=== PATIENT | male | born 1940 | race Caucasian/White ===

== ENCOUNTER 2017-09-09 18:24 | Inpatient (IN) | payer MEDICARE, BC ==
[~2017-09-09] VITALS: Ht 182.9 cm; Wt 86.0 kg
[~2017-09-09 18:24] MED LIST: AMBEREN; APAP500 PO; ASPIRIN EC325 M1 PO; CALCIUM 500 WI1 EAC4 PO; CALCIUM OYSTER500 MG; CARDIZEM CD120 MG PO; CARDIZEM CD180 MG; CARDIZEM CD240 MG PO; CRANBERRY400 MG PO; FISH OIL 1,0001 EAC5 PO; FLAX OIL1000 MG PO; GARLIC OIL1 EAC1; GARLIC OIL1 EACH PO; GLUCOPHAGE1000 MG PO; GLUCOPHAGE500 MG PO; IBUPROFEN 800800 M1 PO; LANOXIN 0.250.25 M1 PO; LEVAQUIN 500 M500 M4 PO; MULTI VITAMIN1 EACH PO; NAPROSYN250 MG PO; NAPROSYN500 MG PO; NORCO 7.5-3251 EACH PO; OXYCODON-ACETA1 EACH PO; PALMETTO; SAW PALMETTO C1 EACH PO; TAMSULOSIN HCL0.4 MG PO
[2017-09-09 18:29] VITALS: BP 118/69
--- NOTE | 2017-09-09 18:45 | NUR ---
WENT TO GET PT, REPORTS HE IS IN BATHROOM AND WILL CALL WHEN HE IS OUT.
[2017-09-09 19:48] LABS: HEMATOCRIT 36.9 % (42.0-52.0); HEMOGLOBIN 11.9 gm/dL (14.0-18.0); MCH 29.4 pg (26.0-34.0); MCHC 32.4 g/dL (28.0-37.0); MCV 90.7 fL (80.0-100.0); MPV 9.3 fl. (7.2-11.1); NUCLEATED RBCS 0 /100WBC; PLATELET COUNT* 511 thou/uL (150-400); RBC 4.06 mil/uL (4.50-6.00); RDW-CV 13.9 % (10.5-14.5); WBC 19.3 thou/uL (4.0-11.0)
[2017-09-09 19:51] LABS: ANION GAP 12 mmol/L (7-16); BUN 108 mg/dL (7-18); CALCIUM 8.2 mg/dL (8.5-10.1); CHLORIDE 93 mmol/L (98-107); CO2 21 mmol/L (21-32); CREATININE 2.6 mg/dL (0.6-1.3); GLUCOSE 457 mg/dL (70-99); POTASSIUM 5.3 mmol/L (3.5-5.1); SODIUM 126 mmol/L (136-145)
[2017-09-09 19:58] LABS: ALBUMIN 2.9 g/dL (3.4-5.0); ALKALINE PHOSPHATASE 141 U/L (46-116); SGOT 19 U/L (15-37); SGPT 48 U/L (30-65); TOTAL BILIRUBIN 0.5 mg/dL (<0.1-1.0); TOTAL PROTEIN 7.2 g/dL (6.4-8.2); TROPONIN-I LEVEL <0.06 ng/mL (<0.06)
[2017-09-09 20:16] LABS: BE -8.1 mmol/L (-2 to +3); HCO3 14.2 mmol/L (22.0-26.0); PCO2 22.3 mmHg (35.0-45.0); PO2 62.2 mmHg (75.0-100.0); pH 7.423 (7.340-7.450)
[2017-09-09 20:25] LABS: ABSOLUTE LYMPHOCYTES 0.4 thou/uL (0.8-5.3); ABSOLUTE MONOCYTES 1.5 thou/uL (0.0-1.2); ABSOLUTE NEUTROPHILS 17.4 thou/uL (1.6-8.1)
[2017-09-09 20:26] LABS: CLUMPED PLTS OCCASIONAL; PLATELET ESTIMATE INCREASED
[2017-09-09 20:28] LABS: MACROCYTES Occasional; MICROCYTES Occasional; POLYCHROMASIA Occasional
[2017-09-09 21:38] LABS: CALCIUM 8.2 mg/dL (8.5-10.1); CREATININE 2.6 mg/dL (0.6-1.3); POTASSIUM 5.2 mmol/L (3.5-5.1)
[2017-09-09 21:57] LABS: URINE BILIRUBIN NEGATIVE (Negative); URINE BLOOD NEGATIVE (Negative); URINE CLARITY CLEAR; URINE COLOR YELLOW; URINE GLUCOSE-RANDOM 3+ (Negative); URINE KETONES NEGATIVE (Negative); URINE LEUKOCYTES-REFLEX NEGATIVE (Negative); URINE NITRITE-REFLEX NEGATIVE (Negative); URINE PROTEIN NEGATIVE (Negative); URINE UROBILINOGEN 0.2 E.U./dl (0.2-1.0)
[2017-09-09 22:52] VITALS: BP 115/65
[2017-09-09 23:04] VITALS: BP 131/70
[2017-09-09] MEDS ORDERED: ULTRAM 50MG TAB50 MG PO (23:30)
--- NOTE | 2017-09-10 02:11 | NUR ---
ASSUMED CARE OF PT AT 2250. PT IS ALERT AND ORIENTED. VSS. PERRLA. NO COMPLAINTS OF PAIN. PT IS TRIGGERING OUR SEPSIS PROTOCAL. DR PARKER IS AWARE OF SEPSIS. PT WAS BOLUSED WITH 1 LITER OF NS WIDE OPEN AND 1 LITER AT 250 ML/HR, AND THEN 125 ML/HR CONTINUOUS. PT ALSO RECIEVED LEVAQUIN. PT IS IN SINUS RYTHM ON THE TELEMETRY. PT IS RESTING COMFORTABLY IN BED. RESPIRATIONS ARE EVEN AND NONLABORED. WILL CONTINUE TO MONITOR PT.
[2017-09-10 04:11] VITALS: BP 123/75
[2017-09-10 07:30] VITALS: BP 126/78
[2017-09-10 09:17] LABS: URINE CHLORIDE-RANDOM* 40 mmol/L; URINE POTASSIUM-RANDOM 47.6 mmol/L
[2017-09-10 11:30] VITALS: BP 128/80
--- NOTE | 2017-09-10 11:54 | NUR ---
ASSUMED PT CARE 0730. PT A/O X'S 4. 93% ON 4L NC. PT DENIES USING OXYGEN AT HOME. PT REPORTS POOR APPETITE LAST FEW DAYS. PT ATE ABOUT 35-40% BREAKFAST. SPOUSE REPORTS THIS IS "MORE THAN WHAT HE HAS EATEN COLLECTIVELY ALL WEEK". VSS. AFEBRILE. TRACING SR. PT UP WITH 1 TO [facility]. PT WEAK. BILATERAL LOWER EXTREMITY EDEMA. PT AND SPOUSE REPORT AT TIMES PT HAS EDEMA IN LEFT LEG. PT C/O OF LOWER BACK PAIN. PRN TRAMADOL ADMININSTERED PER NOV. AT BEDSIDE.
[2017-09-10 12:59] LABS: CALCIUM 7.5 mg/dL (8.5-10.1); CREATININE 2.3 mg/dL (0.6-1.3); POTASSIUM 4.9 mmol/L (3.5-5.1)
[2017-09-10 13:03] LABS: ALBUMIN 2.7 g/dL (3.4-5.0); TOTAL BILIRUBIN 0.4 mg/dL (<0.1-1.0); TOTAL PROTEIN 6.7 g/dL (6.4-8.2)
[2017-09-10 15:30] VITALS: BP 125/87
--- NOTE | 2017-09-10 15:39 | NUR ---
Pt in the bathroom when CM went to assess, will f/u later
--- NOTE | 2017-09-10 17:00 | EKG ---
[place] [address] ELECTROCARDIOGRAM REPORT Name: SHALINIYAOFRANKLYN MONTALVO Room: [address] ADM IN M.R.#: [id number] Admission: 09/09/17 Attend Phys: Caren Girard MD Discharge: Date of : 42 Report #: [id number] THIS REPORT FOR: //name// [facility] ED Test Date: 2017-09-09 Test Time: 19:50:48 Pat Name: YAO LOYA Department: Room: [facility] Gender: M Liquid Loader: WES [place] : 1940 Requested By: Susy Anna Order Number: [id number] MD: Gordon Tobar Measurements Intervals [place] Rate: 83 P: [place]: QRS: 76 QRSD: 112 T: -62 QT: 370 QTc: 435 Interpretive Statements Accelerated junctional rhythm Borderline intraventricular conduction delay Low voltage, precordial leads Nonspecific T abnormalities, inferior leads Compared to ECG 09/11/2013 12:34:53 Accelerated junctional rhythm now present Low QRS voltage now present T-wave abnormality now present Sinus rhythm no longer present First degree AV block no longer present Electronically Signed On 09-10-2017 17:00:46 [employer] by Gordon Tobar [email or web address] <ELECTRONICALLY SIGNED> By: Gordon Tobar MD, FACC 09/10/17 1700 1950 1950 Gordon Tobar MD, FACC /EPI
--- NOTE | 2017-09-10 18:00 | NUR ---
PT VOIDS ABOUT 1 X EVERY 2 HOURS. PRN TRMADOL ADMININSTERED FOR CHRONIC BACK PAIN. BLADDER SCANNER PLACED IN PT'S ROOM TO OBTAIN PVR PER RENAL AND NEPHROLOGY. PT WENT DOWN FOR RENAL US. NO RESULTS AT THIS TIME. BLODD GLUCOSE LEVELS IN 300'S. PT MOVED UP TO MODERATE SLIDING SCALE PER PROTOCOL.
[2017-09-10 20:00] VITALS: BP 110/70
[2017-09-10 23:46] VITALS: BP 102/66
[2017-09-11 03:52] VITALS: BP 105/61
[2017-09-11 04:34] LABS: HEMATOCRIT 37.4 % (42.0-52.0); HEMOGLOBIN 12.2 gm/dL (14.0-18.0); MCH 29.3 pg (26.0-34.0); MCHC 32.6 g/dL (28.0-37.0); MCV 90.1 fL (80.0-100.0); MPV 8.5 fl. (7.2-11.1); RBC 4.15 mil/uL (4.50-6.00); RDW-CV 13.9 % (10.5-14.5); WBC 22.6 thou/uL (4.0-11.0)
[2017-09-11 04:45] LABS: CALCIUM 8.1 mg/dL (8.5-10.1); CREATININE 2.6 mg/dL (0.6-1.3); MAGNESIUM 2.7 mg/dL (1.8-2.4); POTASSIUM 5.4 mmol/L (3.5-5.1)
--- NOTE | 2017-09-11 04:46 | NUR ---
ASSUMED PT CARE AT 1930, PT IS A&OX4, PT IS TRACING NSR UNTILL MIDNIHGT THIS SHIFT, PT CVONVERTED TO AFIB, EKG COMPLETED FOR CONFIRM RHYTHM CHANGE. EKG READS AFIB. ON 3L NC SATTING MID TO LOW 90'S. PT HAS IVF INFUSING PER NOV. PER BEDSIDE REPORTING DAY RN GOT VERBAL ORDER FROM DR. ROSAS TO PLACE BRAVO IF NEEDED FOR RETENTION DUE TO PROSTATE ENLARGEMENT. PT HAS HAD SMALL AMOUNTS OF POST VOID RESIDUAL UNTILL 0400, PT WAS UNABLE TO VOID, BLADDER SCAN REVEALED 520MLS IN BLADDER. THIS RN WILL PLACE A BRAVO TO DD. PT C/O BACK PAIN ONCE THIS SHIFT, PRN PAIN MEDICATIONS GIVEN PER NOV. BED IN LOW POSITION, CALL LIGHT IN REACH, BED ALARM ON. YELLOW ARM BAND AND SOCKS IN PLACE. HOURLY ROUNDING COMPLETED FOR PT SAFETY.
[2017-09-11 08:00] VITALS: BP 106/70
--- NOTE | 2017-09-11 11:11 | NUR ---
VSS, ASSUMED CARE IN AM, ASSESSMENT PERFORMED AND CHARTED, FALL PRECAUTIONS IN PLACE AND CALL LIGHT IN REACH, PT IS TRACING SR AFIB ON THE MONITOR AND IS ON 3L NC AND HAS BRAVO IN PLACE AND IS DRAINING BUY IS RED TINGED BUT DRAINING, PT GOAL IS TO IMPROVE BREATHING AND SIT UP IN CHAIR,
--- NOTE | 2017-09-11 15:47 | NUR ---
Pt is A&O. Resides at home with his . Was independent with ADLs. Supportive family that is involved in POC. Pt has a wc, walker and cane that he can use at home if necessary. Nephro following. CM following for dc needs.
[2017-09-11 16:00] VITALS: BP 120/71
--- NOTE | 2017-09-11 17:55 | EKG ---
[place] [address] ELECTROCARDIOGRAM REPORT Name: BHAKTI LOYAH SELVIN Room: [address] ADM IN M.R.#: [id number] Admission: 09/09/17 Attend Phys: Caren Girard MD Discharge: Date of : 42 Report #: [id number] THIS REPORT FOR: //name// [facility] Test Date: 2017-09-11 Test Time: 00:29:48 Pat Name: YAO LOYA Department: Room: [address] Gender: M Twisting Department End Finder: [facility] : 1940 Requested By: Mohsen Mejia Order Number: [id number] Natasha MD: Gordon Tobar Measurements Intervals [place] Rate: 84 P: [place]: QRS: 91 QRSD: 108 T: -32 QT: 382 QTc: 452 Interpretive Statements Atrial fibrillation Right axis deviation Low voltage, extremity and precordial leads Nonspecific T wave flattening Compared to ECG 09/09/2017 19:50:48 Right-axis deviation now present Accelerated junctional rhythm no longer present T-wave abnormality no longer present Electronically Signed On 09-11-2017 17:55:43 [employer] by Gordon Tobar [email or web address] <ELECTRONICALLY SIGNED> By: Gordon Tobar MD, FACC 09/11/17 1755 0029 0029 Gordon Tobar MD, FACC /EPI
--- NOTE | 2017-09-11 18:55 | NUR ---
VSS, PT IS PROGRESSING TOWARDS GOAL, PT IS ON 3L NC AND UP WITH ONE TO BSC, BRAVO IN PLACE AND IS DRAINIG TEA COLOR, PT IS CONFUSED AND IS TRACING SB ON THE MONITOR, HOURLY ROUNDS COMPLETED AND WILL FOLLOW WITH PLAN OF CARE.
[2017-09-11 20:00] VITALS: BP 117/70
[2017-09-11 23:31] VITALS: BP 95/67
[2017-09-12 04:43] LABS: HEMATOCRIT 39.8 % (42.0-52.0); HEMOGLOBIN 12.7 gm/dL (14.0-18.0); MCH 28.9 pg (26.0-34.0); MCHC 31.8 g/dL (28.0-37.0); MCV 90.8 fL (80.0-100.0); MPV 8.3 fl. (7.2-11.1); PLATELET COUNT* 565 thou/uL (150-400); RBC 4.38 mil/uL (4.50-6.00); RDW-CV 14.3 % (10.5-14.5); WBC 25.9 thou/uL (4.0-11.0)
[2017-09-12 05:06] LABS: CREATININE 3.1 mg/dL (0.6-1.3); MAGNESIUM 2.8 mg/dL (1.8-2.4); POTASSIUM 5.7 mmol/L (3.5-5.1)
--- NOTE | 2017-09-12 05:50 | NUR ---
A&O X 3-4, PT IMPULSIVE. PT ON SEPSIS PROTOCOL PT HAS BRAVO, DARK [place] TEA COLOR. BRAVO WAS FLUSHED WITH 10 ML NS. EDEMA IN ARMS AND LEGS. PT HAS LARGE BM EARLY IN THE MORNING. PT X1 ASSIST, REQUIRES EXTRA TIME. 3L O2 SAT 97. SHALLOW BREATHING. PT IS MED SURGE. FALL PRECATUIONS IN PLACE.HOURLY ROUNDING FOR SAFETY.
[2017-09-12 08:00] VITALS: BP 110/77
[2017-09-12 10:31] LABS: ABSOLUTE LYMPHOCYTES 1.8 thou/uL (0.8-5.3); ABSOLUTE MONOCYTES 2.1 thou/uL (0.0-1.2); ANISOCYTOSIS 2+; ATYPICAL LYMPHS 1 %; BURR CELLS 1+; METAMYELOCYTES 2 %; PLATELET ESTIMATE INCREASED
[2017-09-12 11:50] LABS: URINE BILIRUBIN NEGATIVE (Negative); URINE BLOOD 3+ (Negative); URINE CLARITY SL HAZY; URINE COLOR YELLOW; URINE GLUCOSE-RANDOM NEGATIVE (Negative); URINE KETONES NEGATIVE (Negative); URINE LEUKOCYTES-REFLEX TRACE (Negative); URINE NITRITE-REFLEX NEGATIVE (Negative); URINE PROTEIN NEGATIVE (Negative); URINE UROBILINOGEN 0.2 E.U./dl (0.2-1.0)
[2017-09-12 11:56] LABS: BACTERIA-REFLEX 1-9 Few /HPF (None Seen); CASTS None Seen /LPF (None Seen); CRYSTALS None Seen /LPF (None Seen); MUCUS 0-3 Light strn/LPF (None Seen); SQUAMOUS 0-3 Few /LPF (0-3); URINE RBC 3-10 Few /HPF (0-2); URINE WBC-REFLEX 6-15 Few /HPF (0-5)
--- NOTE | 2017-09-12 13:36 | 2DMMODE ---
[place] [address] 2 D/M-MODE ECHOCARDIOGRAM Name: SHALINIYAO WAYNE Room: [address] IN [facility]#: [id number] Admission: 09/09/17 Attend Phys: Caren Girard, Discharge: Date of : 42 Date of Service: 09/12/17 1336 Report #: [id number] THIS REPORT FOR: //name// APPROVED REPORT Study performed: 09/12/2017 10:41:47 EXAM: Comprehensive 2D, Doppler, and color-flow Echocardiogram Patient Location: In-Patient Room #: 202 Status: routine BSA: 2.24 HR: 83 bpm BP: 110/77 mmHg Rhythm: NSR Other Information Study Quality: Good Indications Abnormal ECG Sepsis Pericardial Effusion 2D Dimensions LVEF(%): 68.49 (>50%) IVSd: 15.14 (7-11mm) LVOT Diam: 26.71 (18-24mm) LVDd: 34.53 mm PWd: 13.57 (7-11mm) Ascending Ao: 39.12 (22-36mm) LVDs: 21.63 (25-40mm) Aortic Root: 32.31 mm Lau's LVEF: 68.49 % Volumes Left Atrial Volume (Systole) LA ESV Index: 20.10 mL/m2 Aortic Valve AoV Peak Sukhjinder.: 1.61 m/s AO Peak Gr.: 10.33 mmHg LVOT Max P.62 mmHg AO Mean Gr.: 6.32 mmHg LVOT Mean P.21 mmHg LVOT Max V: 0.81 m/s AO V2 VTI: 21.90 cm LVOT Mean V: 0.50 m/s JANEEN (VTI): 2.63 cm2 LVOT V1 VTI: 10.28 [place] [address] 2 D/M-MODE ECHOCARDIOGRAM Name: YAO LOYA Room: [address] IN ..#: [id number] Admission: 09/09/17 Attend Phys: Caren Girard, Discharge: Date of : 42 Date of Service: 09/12/17 1336 Report #: [id number] Mitral Valve E/A Ratio: 0.83 MV Decel. Time: 479.57 ms MV E Max Sukhjinder.: 0.54 m/s MV PHT: 139.08 ms MVA (PHT): 1.58 cm2 Pulmonary Valve PV Peak Sukhjinder.: 1.05 m/s PV Peak Gr.: 4.42 mmHg Tricuspid Valve TR Peak Gr.: 21.12 mmHg RVSP: 26.00 mmHg Left Ventricle The left ventricle is normal size. There is normal LV segmental wall motion. There is normal left ventricular wall thickness. Left ventricular systolic function is normal. The left ventricular ejection fraction is within the normal range. LVEF is 60-65%. Right Ventricle The right ventricle is normal size. The right ventricular systolic function is normal. Atria The left atrium size is normal. The right atrium size is normal. Aortic Valve Mild aortic valve sclerosis. No aortic regurgitation is present. There is no aortic valvular stenosis. Mitral Valve The mitral valve is normal in structure. There is no mitral valve regurgitation noted. No evidence of mitral valve stenosis. Tricuspid Valve The tricuspid valve is normal in structure. Trace tricuspid regurgitation. The RVSP is ___26___ mmHg. Pulmonic Valve The pulmonary valve is normal in structure. There is no pulmonic valvular regurgitation. Great Vessels The aortic root is normal in size. IVC is normal in size and collapses with >50% [place] [address] 2 D/M-MODE ECHOCARDIOGRAM Name: YAO LOYA Room: [address] IN [facility]#: [id number] Admission: 09/09/17 Attend Phys: Caren Girard, Discharge: Date of : 42 Date of Service: 09/12/17 1336 Report #: [id number] Pericardium Moderate pericardial effusion. Nonloculated with thickening of the visceral pericardium .No evidence for tamponade. <Conclusion> The left ventricle is normal size. There is normal left ventricular wall thickness. Left ventricular systolic function is normal. The left ventricular ejection fraction is within the normal range. LVEF is 60-65%. The right ventricle is normal size. The right ventricular systolic function is normal. The left atrium size is normal. The right atrium size is normal. Mild aortic valve sclerosis. No aortic regurgitation is present. There is no aortic valvular stenosis. The mitral valve is normal in structure. There is no mitral valve regurgitation noted. The tricuspid valve is normal in structure. Trace tricuspid regurgitation. The RVSP is ___26___ mmHg. IVC is normal in size and collapses with >50% inspiratio There is normal LV segmental wall motion. Moderate pericardial effusion. Nonloculated with thickening of the visceral pericardium .No evidence for tamponade. <ELECTRONICALLY SIGNED> By: Ricardo Momin MD, FACC 09/12/17 1336 1336 1336 Ricardo Momin MD, FACC /INF
[2017-09-12 16:10] VITALS: BP 133/74
--- NOTE | 2017-09-12 18:48 | NUR ---
VSS, ASSUMED CARE IN THE AM, ASSESSMENT PERFORMED AND CHARTED, FALL PRECAUTIONS IN PLACE AND CALL LIGHT IN REACH, PT IS ON 3L NC AND IS A&O2-3 BUT VERY SLEEPY AND WEAK, PT GOAL IS TO SIT UP IN CHAIR FOR LUNCH. OT IS MED-SURG AND STATES PAIN IN HIS BACK, AT THIS TIME, PT MET GOAL WAS UP IN CHAIR FOR LUNCH, AND IS NOW TELE STATUS, WILL FOLLOW WITH PLAN OF CARE.
--- NOTE | 2017-09-12 19:52 | S ---
[address] [address] SURGICAL PATH RPT PROCEDURE Name: YAO LOYA Room: [address] ADM IN M.R.#: [id number] Admission: 09/09/17 Date of : 42 Discharge: Report #: [id number] Path Case #: [id number] PATHOLOGY REPORT COLLECTION DATE: 09/12/2017 RECEIVED DATE: 09/12/2017 SUBMITTING PHYS: Dr. Rosales Barrientos OTHER PHYS: Dr. Caren Almaraz SPECIMEN(S) RECEIVED: A.Peripheral smear * * * * * * * * * * * * FINAL DIAGNOSIS: Peripheral blood smear: - Mild normocytic anemia, mild to moderate leukocytosis (neutrophilia and mature monocytosis) with mild left shift and mild thrombocytosis (see comment). COMMENT: Overall the peripheral blood has mild normocytic anemia, mild to moderate leukocytosis (neutrophilia and mature monocytosis) with mild left shift, and mild thrombocytosis. The etiology of the findings is unclear based entirely on slide review. Reactive changes are noted. Rare granulocytic abnormalities are also seen. Potential causes of normocytic anemia include anemia of chronic disease, treated and/or compensated vitamin and mineral deficiencies, acute blood loss, dilutional and primary bone marrow disorders. The leukocytosis with left shifted neutrophilia and absolute mature monocytosis is likely a reactive condition; however, a primary bone marrow disorder cannot be entirely excluded. Potential causes of thrombocytosis include reactive and inflammatory conditions, iron deficiency and primary bone marrow disorders. Correlation with clinical history and additional laboratory data is recommended. (CLW:db; 09/12/2017) PATHOLOGIST: Ramila Mart M.D. REPORT ELECTRONICALLY SIGNED BY: Ramila Mart M.D. DATE/TIME: 09/12/2017 19:51 * * * * * * * * * * * * MICROSCOPIC DESCRIPTION: CBC Data (09/12/17): WBC 25,900 /uL, RBC 4.38, hemoglobin 12.7 g/dL, hematocrit 39.8%, MCV 90.8 fL, MCH 28.9 pg, MCHC 31.8 g/dL, RDW 14.3%. Platelet count 565,000 /uL. Manual white blood cell differential: segs 83%, lymphs 6%, monos 8%, metas 2% and atypical lymphs 1%. [place] [address] SURGICAL PATH RPT PROCEDURE Name: YAO LOYA Room: [address] IN [facility]#: [id number] Admission: 09/09/17 Date of : 42 Discharge: Report #: [id number] Path Case #: [id number] Peripheral Blood Smear: Cytomorphological examination of the Humphrey's stained peripheral blood smear confirms the provided data. Red blood cells show mild normocytic anemia and are without significant anisopoikilocytosis. White blood cells are mild to moderately increased in number. They are predominantly segmented neutrophils with reactive changes and show focal hypogranularity. There is a mild left shift with a rare metamyelocyte noted on scanning. No blasts or Qian rods are seen. Lymphocytes are predominantly small, round and mature appearing with condensed chromatin and scant cytoplasm with admixed large granular lymphocytes and occasional reactive appearing lymphocytes. On scanning, no markedly atypical lymphoid cells are seen. Monocytes are mature. Platelets are mildly increased in number and mainly normal in morphology with rare larger platelets noted. A rare nucleated red blood cell is seen. GROSS PATHOLOGY: Received are two Humphrey stained peripheral blood smears labeled "Green, K and [id number]." CLINICAL HISTORY: 77 year old man with leukocytosis and thrombocytosis. Morphologic review of the peripheral blood smear is requested by the patient's physician. INITIAL CPT CODE(S): A; [place] Professional services performed by [facility] at [address] [address] Technical services performed by [facility] at [address] [place] [address], [address], [place] [address]. [facility] [address] [place] [address] PHONE: [phone] DIRECTOR: Miller Wallis M.D. * * * END OF REPORT * * *
[2017-09-12 20:00] VITALS: BP 111/72
[2017-09-13] VITALS: BP 123/77
[2017-09-13 04:26] VITALS: BP 120/74
[2017-09-13 05:08] LABS: ABSOLUTE MONOCYTES 2.9 thou/uL (0.0-1.2); BASOPHILS 0.2 %; HEMATOCRIT 39.3 % (42.0-52.0); HEMOGLOBIN 12.6 gm/dL (14.0-18.0); LYMPHOCYTES 3.8 %; MCH 29.2 pg (26.0-34.0); MCHC 32.2 g/dL (28.0-37.0); MCV 90.6 fL (80.0-100.0); MONOCYTES 11.3 %; MPV 8.1 fl. (7.2-11.1); NUCLEATED RBCS 0 /100WBC; PLATELET COUNT* 544 thou/uL (150-400); POLYS 84.7 %; RBC 4.33 mil/uL (4.50-6.00); WBC 25.9 thou/uL (4.0-11.0)
--- NOTE | 2017-09-13 05:21 | NUR ---
A&O X4 CALM AND COOPERITVE. DENIES PAIN. PT SR ON THE MONITOR. PT ON 3L O2 SAT IS 94. PT HAS EDEMA BILAT IN ARMS AND LEGS. PT HAD BM ON SHIFT. PT HAS CRACKLES IN BASES. PT X1 ASSIST. VITALS WNL. FALL PRECAUTIONS IN PLACE. HOURLY ROUNDING FOR SAFETY.
[2017-09-13 05:22] LABS: CALCIUM 8.3 mg/dL (8.5-10.1); CREATININE 3.2 mg/dL (0.6-1.3); POTASSIUM 5.2 mmol/L (3.5-5.1)
[2017-09-13 07:30] VITALS: BP 131/74
--- NOTE | 2017-09-13 09:00 | NUR ---
VSS, ASSUMED CARE IN THE AM, ASSESSMENT PERFORMED AND CHARTED AND FALL PRECAUTIONS IN PLACE AND CALL LIGHT IN REACH, PT DENIES ANY PAIN AT THIS TIME, HIS IS TRACING SR ON THE MONITOR AND ON 3L NC AND UP WITH ONE TO BEC, HIS GOAL IS TO IMPROVE LABS AND SIT UP IN CHAIR FOR MEALS. HE IS A&O3-4 BUT VERY SLEEPY.
[2017-09-13 11:56] VITALS: BP 111/63
--- NOTE | 2017-09-13 14:58 | EKG ---
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1940 Requested By: Ricardo Momin Order Number: [id number] Reading MD: Ricardo Momin Measurements Intervals [place] Rate: 80 P: 90 IA: 194 QRS: 79 QRSD: 109 T: -29 QT: 399 QTc: 461 Interpretive Statements Sinus rhythm Borderline T abnormalities, diffuse leads Compared to ECG 09/11/2017 00:29:48 Atrial fibrillation no longer present Right-axis deviation no longer present T-wave abnormality still present Electronically Signed On 09-13-2017 14:58:11 [employer] by Ricardo Momin [email or web address] <ELECTRONICALLY SIGNED> By: Ricardo Momin MD, [facility] 09/13/17 1458 0923 Ricardo Momin MD, [facility] /EPI
[2017-09-13 16:02] VITALS: BP 107/52
--- NOTE | 2017-09-13 18:31 | NUR ---
VSS, PT IS PROGRESSING TOWARDS GOAL, PT SAT UP TO CHAIR FOR LUNCH AND DINNER, HE IS ON 3L NC AND TRACING SR ON THE MONITOR, PT IS MORE AWAKE AND IS A&O3-4. BRAVO IN PLACE AND IS DRAINING, NO OTHER STATUS CHANGE AT THIS TIME, HOURLY ROUNDS COMPLETED, PT IS NOW IN BED WITH CALL LIGHT IN REACH.
[2017-09-13 20:00] VITALS: BP 107/63
[2017-09-14] VITALS: BP 102/68
[2017-09-14 04:00] VITALS: BP 111/63; BP 156/100
--- NOTE | 2017-09-14 04:21 | NUR ---
PT ALERT ORIENTED. TELEMETRY SHOWS SR, BREATH SOUNDS DIMINISHED. O2 AT 3 LITERS NC. BRAVO WITH CLEAR YELLOW. WILL CONTINUE TO MONITOR.
[2017-09-14 05:04] LABS: HEMATOCRIT 38.8 % (42.0-52.0); HEMOGLOBIN 12.4 gm/dL (14.0-18.0); MCH 28.9 pg (26.0-34.0); MCHC 31.9 g/dL (28.0-37.0); MCV 90.5 fL (80.0-100.0); MPV 7.8 fl. (7.2-11.1); RBC 4.29 mil/uL (4.50-6.00); RDW-CV 13.8 % (10.5-14.5); WBC 24.4 thou/uL (4.0-11.0)
[2017-09-14 05:09] LABS: CALCIUM 8.5 mg/dL (8.5-10.1); CREATININE 3.4 mg/dL (0.6-1.3); MAGNESIUM 3.1 mg/dL (1.8-2.4); POTASSIUM 5.1 mmol/L (3.5-5.1)
[2017-09-14 08:00] VITALS: BP 113/60
[2017-09-14 12:16] VITALS: BP 115/65
--- NOTE | 2017-09-14 14:22 | NUR ---
ASSUMED CARE OF PATIENT THIS AM AT 0730. PATIENT IS ALERT ORIENTED TO PLACE AND TIME. PATIENT IS SOMEWHAT FORGETFUL. HE C/O RIGHT FLANK PAIN THIS AM. PATIENT IS TO RECIEVE A TEMPORARY DIALYSIS ACCESS TODAY. PATIENT KEPT NPO FOR PROCEDURE. ASSISTED UP TO THE BSC THIS AFTERNOON. UNABLE TO HAVE A BM AT THIS TIME. PATIENT ASSISTED BACK TO BED. DR SALINAS IN TO ROUND AND ORDERS WRITTEN TO START DIALYSIS TODAY. TALKED WITH PATIENT'S AND SON ABOUT PLANNED PROCEDURES TODAY. TELE SHOWED SR. PATIENT ENCOURAGED TO TCDB. LAWRENCE KEPT TO DD. PATIENT MEDICATED X 1 THIS AM FOR C/O PAIN. HE STATED PAIN MEDICATION EFFECTIVE. WILL CONTINUE TO MONITOR LABS AND CHANGES IN VS AND ORIENTTATION. SIDERAILS ARE UP AND CALL LIGHT IS IN REACH.
[2017-09-14 16:34] VITALS: BP 118/90
[2017-09-14 20:00] VITALS: BP 94/54
[2017-09-15] VITALS: BP 114/65
--- NOTE | 2017-09-15 01:33 | NUR ---
PT ALERT ORIENTED. TELEMETRY SHOWS SR. BRAVO TO TERRANCE. RIGHT IJ HD CATH IN PLACE. TURN Q 2 HRS. WILL CONTINUE TO MONITOR.
[2017-09-15 04:00] VITALS: BP 125/64
[2017-09-15 04:56] LABS: NUCLEATED RBCS 0 /100WBC; PLATELET COUNT* 454 thou/uL (150-400)
[2017-09-15 04:59] LABS: ABSOLUTE LYMPHOCYTES 0.8 thou/uL (0.8-5.3); ABSOLUTE MONOCYTES 2.6 thou/uL (0.0-1.2); ABSOLUTE NEUTROPHILS 19.9 thou/uL (1.6-8.1); BASOPHILS 0.1 %; HEMATOCRIT 35.5 % (42.0-52.0); HEMOGLOBIN 11.8 gm/dL (14.0-18.0); LYMPHOCYTES 3.6 %; MCH 29.4 pg (26.0-34.0); MCHC 33.2 g/dL (28.0-37.0); MCV 88.4 fL (80.0-100.0); MPV 7.5 fl. (7.2-11.1); POLYS 85.3 %; RBC 4.01 mil/uL (4.50-6.00); WBC 23.3 thou/uL (4.0-11.0)
[2017-09-15 05:09] LABS: ALBUMIN 2.5 g/dL (3.4-5.0); CALCIUM 8.2 mg/dL (8.5-10.1); CREATININE 3.5 mg/dL (0.6-1.3); MAGNESIUM 3.1 mg/dL (1.8-2.4); POTASSIUM 5.2 mmol/L (3.5-5.1); TOTAL BILIRUBIN 0.7 mg/dL (<0.1-1.0); TOTAL PROTEIN 6.3 g/dL (6.4-8.2)
[2017-09-15 05:12] LABS: % SATURATION 6 % (20-39); IRON 14 ug/dL (50-175)
[2017-09-15 14:06] VITALS: BP 110/64
[2017-09-15 15:39] VITALS: BP 91/65
[2017-09-15 16:10] LABS: COMPLEMENT-C4 42 mg/dL (14-44)
[2017-09-15 20:00] VITALS: BP 117/58
--- NOTE | 2017-09-15 20:02 | NUR ---
ASSUMED PT CARE AT 0730, PT TAKEN TO DIALYSIS AT APPROX 0745, FULL ASSESMNET DONE ON PTS RETURN AT APPROX 1200. PT ORINETED TO SELF BUT HALLUCINATING AND CONFUSED. PTS AT BEDSIDE MOST OF THE DAY, IS SWETHA ANXIOUS ABOUT PTS CONFUSION. 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 NEEDS CONSTANT REASSURANCE. PTS BP SLIGHTLY LOW THIS AFTERNOON, PT ASYMPTOMATIC. ALL OTHER VSS, AFIB ON THE MONITOR, RATE CONTROLLED. PT PULLING AT BRAVO/IV'S. PT TURNED Q 2 HR, PT CONSTANTLY WILL PUSH AGAINST THE [place] PLACING HIMSELF BACK ON BOTTOM. BOTOM RED AND RASH NOTED TO RIGHT BUTTOCK. PTS SCROTUM SWOLLEN. ELEVATED WITH TOWEL, WOUND CONSULT PLACED. BILAT LEGS/FEET SWOLLEN, ELEVATED WITH PILLOW. PT HAD SOME TROUBLE SWALLOWING FOOD AT LUNCH, REPORTS HE HAS TROBLE CHEWING. PT GIVEN THIN LIQUIDS AND APPLESAUCE AND DID WELL. CHANGED DIET TO GROUNG AND PT DID WELL WITH THE CHANGE AT DINNER. PT STABLE THIS SHIFT AND IS SLOW TO PROGRESS TOWARD GOALS. FALL PRECATUIONS IN PLACE, CALL LIGHT IN REACH. REPORT GIVEN TO MEKHI KEANE.
[2017-09-16] VITALS: BP 124/59
--- NOTE | 2017-09-16 02:03 | NUR ---
PATIENT RESTING MOST OF NIGHT. WAS RESTLESS AT BEGINNING OF SHIFT, TAKING OXYGEN OFF, AND REMOVING SHEETS. IS AT BEDSIDE. SLEEPING WITHOUT FURTHER INCIDENT. TURN EVERY 2 HOURS. DIALYSIS TOMORROW. SR ON THE MONITOR. BED IN LOW POSITION. NO SIGN OF DISTRESS, CONT. WITH CURRENT PLAN OF CARE AT THIS TIME.
--- NOTE | 2017-09-16 03:02 | NUR ---
PATIENT HAS 3+ PITTING EDEMA TO LOWER EXT, SCROTUM IS SWOLLEN, CONT. O2 4 LITERS, PATIENT FREQUENTLY REMOVES. PLACED BACK ON. CONFUSED. ALERT, LUNGS DIMINISHED. CONT. WITH CURRENT PLAN OF CARE.
[2017-09-16 04:11] VITALS: BP 103/64
[2017-09-16 04:21] LABS: HEMATOCRIT 35.5 % (42.0-52.0); HEMOGLOBIN 11.5 gm/dL (14.0-18.0); MCHC 32.4 g/dL (28.0-37.0); MCV 89.4 fL (80.0-100.0); MPV 8.2 fl. (7.2-11.1); NUCLEATED RBCS 0 /100WBC; RBC 3.98 mil/uL (4.50-6.00); RDW-CV 13.9 % (10.5-14.5)
[2017-09-16 04:23] LABS: PLATELET COUNT* 356 thou/uL (150-400)
[2017-09-16 04:46] LABS: ALBUMIN 2.5 g/dL (3.4-5.0); CALCIUM 7.8 mg/dL (8.5-10.1); CREATININE 3.8 mg/dL (0.6-1.3); MAGNESIUM 2.9 mg/dL (1.8-2.4); PHOSPHORUS* 7.8 mg/dL (2.5-4.9); POTASSIUM 5.1 mmol/L (3.5-5.1)
[2017-09-16 05:03] LABS: CALCIUM 7.9 mg/dL (8.5-10.1); CREATININE 3.8 mg/dL (0.6-1.3); PHOSPHORUS* 7.8 mg/dL (2.5-4.9); POTASSIUM 4.8 mmol/L (3.5-5.1)
[2017-09-16 05:07] LABS: ABSOLUTE LYMPHOCYTES 0.7 thou/uL (0.8-5.3); ABSOLUTE MONOCYTES 1.7 thou/uL (0.0-1.2); ABSOLUTE NEUTROPHILS 21.6 thou/uL (1.6-8.1)
[2017-09-16 05:08] LABS: PLATELET ESTIMATE ADEQUATE
[2017-09-16 08:00] VITALS: BP 106/52
--- NOTE | 2017-09-16 11:55 | NUR ---
ASSUMED CARE OF PT AT APPROXIMATELY 0730. PT RESTING IN BED WAITING FOR BREAKFAST. AT BEDSIDE. PT A&0X4, FORGETFUL. PT STATES PT IS A COMPLETELY DIFFERENT PERSON TODAY COMPARED TO YESTERDAY. PT ATE 95% BREAKFAST, APPETITE IMPROVEMENT. PT TRACING SR ON THE SENIOR SALES ENGINEER. EDEMA NOTED TO BILATERAL LOWER EXTREMITIES AND SCROTUM. ANASARCA. PT ON 4L NC SAT 93%. DENIES ANY PAIN OR SHORTNESS OF BREATH. BRAVO TO DEPENDENT DRAINAGE. PT UP TO BSC WITH 2 ASSIST AND WALKER, HAD BOWEL MOVEMENT. RIGHT CHEST DIALYSIS CATHETER IN PLACE. PT GOAL FOR TODAY IS TO GET UP TO RECLINER. AM ASSESSMENT CHARTED. MEDICATIONS PER NOV. PT REPOSITIONED EVERY 2 HOURS FOR COMFORT. HOURLY ROUNDING OBSERVED. BED IN LOW POSITION. BED ALARM IN PLACE. FALL PRECAUTIONS IN PLACE. CALL LIGHT WITHIN REACH. WILL CONTINUE PLAN OF CARE.
[2017-09-16 13:30] VITALS: BP 115/59
[2017-09-16 16:00] VITALS: BP 109/72
--- NOTE | 2017-09-16 17:54 | NUR ---
NO ACUTE CHANGES THROUGHOUT SHIFT. REFER TO CHARTING. PT AT BEDSIDE THROUGHOUT SHIFT. PT UP TO RECLINER MULTIPLE TIMES THROUGHOUT SHIFT FOR MEALS. TOLERATED WELL. PT APPETITE GOOD TODAY. PT HAD CT CHEST TODAY. REFER TO RESULTS. PT TO HAVE DIALYSIS TOMORROW 09/17. PT CONTINUES TO TRACE AFIB ON THE COUNTY ASSESSOR. ON 4L NC SAT UPPER 90'S. DENIES ANY PAIN OR SHORTNESS OF BREATH. BRAVO TO DEPENDENT DRAINAGE. PT UP WITH 2 ASSIST AND WALKER TO [facility]. MEDICATIONS PER NOV. PT REPOSITIONED EVERY 2 HOURS FOR COMFORT. HOURLY ROUNDING OBSERVED. BED IN LOW POSITION. BED ALARM IN PLACE. FALL PRECAUTIONS IN PLACE. CALL LIGHT WITHIN REACH. WILL CONTINUE PLAN OF CARE.
[2017-09-16 20:00] VITALS: BP 98/66
[2017-09-17] VITALS: BP 120/62
[2017-09-17 04:00] VITALS: BP 102/66
[2017-09-17 05:43] LABS: HEMOGLOBIN 11.4 gm/dL (14.0-18.0); MCH 29.1 pg (26.0-34.0); MCHC 32.5 g/dL (28.0-37.0); MCV 89.3 fL (80.0-100.0); MPV 8.1 fl. (7.2-11.1); RBC 3.92 mil/uL (4.50-6.00); WBC 25.2 thou/uL (4.0-11.0)
[2017-09-17 06:31] LABS: ALBUMIN 2.5 g/dL (3.4-5.0); CALCIUM 7.7 mg/dL (8.5-10.1); CREATININE 4.1 mg/dL (0.6-1.3); MAGNESIUM 2.9 mg/dL (1.8-2.4); POTASSIUM 4.7 mmol/L (3.5-5.1); TOTAL BILIRUBIN 0.4 mg/dL (<0.1-1.0); TOTAL PROTEIN 6.2 g/dL (6.4-8.2)
[2017-09-17 08:00] VITALS: BP 115/66
--- NOTE | 2017-09-17 11:49 | NUR ---
ASSUMED RESPONSIBILITY OF PT THIS AM PT IS ALERT AND ORIENTED X3 FORGETFUL AND CONFUSED AT TIMES DIALYSIS SCHEDULED FOR 1300 PT IS TRACKING NSR ON THE MONITOR TEMP RIGHT PORT FOR HEMODIALYSIS RIGHT HAND AND RAC IV 20G SL EDEMA GENERALIZED IN BLE AND SCROTAL AREA TURN EVERY 2 HOURS PT IS VERY WEAK LBM T-1 FC DRAINING DARK YELLOW URINE ACHS BLOOD SUGARS MECH GROUND/THIN BUT SEEMS TO HAVE DIFFICULTY STILL WITH SWALLOWING 'MEATS' ACCORDING TO DENIES ANY PAIN AT THIS TIME WILL CONT TO MONITOR STILL AT BEDSIDE
[2017-09-17 12:00] VITALS: BP 115/71
--- NOTE | 2017-09-17 14:26 | NUR ---
WOUND NURSE: PATIENT SEE FOR INTEGUMENTARY ASSESSMENT OF SACROCOCCYGEAL LESION. PRESENTS WITH CIRCUMSCRIBED AREA BLANCHEABLE REDNESS MOST LIKELY RELATED HISTORY OF INCONTINENC. THERE ARE NO OPEN WOUNDS NOTED IN AREA AT TIME OF THIS ASSESSMENT. PATIENT IS ALREADY ON EVERY 2 HOUR TURN SCHEDULE. CLEANSED THE AFFECTED AREA WITH SOAP AND WATER, RINSED WITH WATER,THEN PATTED DRY. APPLIED PHYTOPLEX AF MOISTURE BARRIER. EXPLAINED THE IMPORTANCE OF OFFLOADING THIS AREA WITH FREQUENT REPOSITIONING WITH UNDERSTANDING ACHIEVED, BUT REINFORCEMENT MOST LIKELY NEEDED. THE POC WAS SHARED WITH STAFF NURSE CARING FOR PATIENT.
--- NOTE | 2017-09-17 15:03 | 2DMMODE ---
[address] [address] 2 D/M-MODE ECHOCARDIOGRAM Name: YAO LOYA Room: [address] IN [facility]#: [id number] Admission: 09/09/17 Attend Phys: Caren Girard, Discharge: Date of : 42 Date of Service: 09/17/17 1502 Report #: [id number] THIS REPORT FOR: //name// APPROVED REPORT Study performed: 09/17/2017 10:07:20 EXAM: Limited 2D Echocardiogram Patient Location: In-Patient Room #: 202 Status: routine BSA: 2.25 HR: 77 bpm BP: 102/66 mmHg Rhythm: NSR Other Information Study Quality: Good Indications Pericardial Effusion Left Ventricle The left ventricle is normal size. There is normal left ventricular wall thickness. The left ventricular systolic function is normal. LVEF is 60-65%. Right Ventricle The right ventricle is normal size. The right ventricular systolic function is normal. Atria The left atrium size is normal. The right atrium size is normal. Aortic Valve The aortic valve is normal in structure. Mitral Valve The mitral valve is normal in structure. Tricuspid Valve The tricuspid valve is normal in structure. Pulmonic Valve The pulmonary valve is normal in structure. [address] [place] [address] 2 D/M-MODE ECHOCARDIOGRAM Name: YAO LOYA Room: [address] IN M.R.#: [id number] Admission: 09/09/17 Attend Phys: Caren Girard, Discharge: Date of : 42 Date of Service: 09/17/17 1502 Report #: [id number] Great Vessels The aortic root is normal in size. Pericardium Large circumferential pericardial effusion. <Conclusion> The left ventricle is normal size. There is normal left ventricular wall thickness. LVEF is 60-65%. Large circumferential pericardial effusion. Pericardial effusion essentially unchanged in size from previous study. There is no evidence of hemodynamic compromise. <ELECTRONICALLY SIGNED> By: Gordon Tobar MD, FACC 09/17/17 1502 01 01 Gordon Tobar MD, FACC /INF
[2017-09-17 15:06] LABS: HEPATITIS B SURFACE AG Negative (Negative)
[2017-09-17 16:08] LABS: GLOBULIN TOTAL 3.6 g/dL (2.2-3.9); M-SPIKE Not Observed g/dL (Not Observed)
--- NOTE | 2017-09-17 17:56 | NUR ---
PT BACK FROM DIALYSIS TOOK OFF 2L OF FLUID PT WITH POOR APPETITE THROUGHOUT DAY ON I'S AND O'S DRINKING MORE THAN EATING CONT ON 3.5L OF OXYGEN NC NEW ORDER FOR WOUND ON BUTTOCKS AND WOUND NURSE SAW AND DRESSED PT SAT UP IN CHAIR FOR A LITTLE WHILE BUT DIDN'T TOLERATE WELL
[2017-09-17 20:00] VITALS: BP 122/68
[2017-09-18] VITALS (7 sets, daily range): BP systolic 91–121; BP diastolic 60–85
[2017-09-18 04:46] LABS: HEMATOCRIT 34.9 % (42.0-52.0); HEMOGLOBIN 11.2 gm/dL (14.0-18.0); MCH 28.8 pg (26.0-34.0); MCHC 32.1 g/dL (28.0-37.0); MCV 89.7 fL (80.0-100.0); MPV 7.8 fl. (7.2-11.1); RBC 3.89 mil/uL (4.50-6.00); RDW-CV 14.2 % (10.5-14.5); WBC 25.2 thou/uL (4.0-11.0)
[2017-09-18 05:01] LABS: ALBUMIN 2.5 g/dL (3.4-5.0); CALCIUM 7.6 mg/dL (8.5-10.1); CREATININE 3.6 mg/dL (0.6-1.3); MAGNESIUM 2.7 mg/dL (1.8-2.4); POTASSIUM 4.4 mmol/L (3.5-5.1); TOTAL BILIRUBIN 0.4 mg/dL (<0.1-1.0); TOTAL PROTEIN 6.2 g/dL (6.4-8.2)
--- NOTE | 2017-09-18 05:18 | NUR ---
PT RESTING AT THIS TIME. HAS BEEN AT BEDSIDE THIS SHIFT. NO SIGNIFICANT CHANGES THIS SHIFT,WCTM.
--- NOTE | 2017-09-18 11:00 | NUR ---
ASSUMED PT CARE AT 0730, FULL ASSESMENT DONE CHARTED. PT A/O X2-3, IS FORGETFUL, AT TIMES SPEECH UNINTELIGIBLE. PT DENIES PAIN THIS AM. UP TO MAGDA, HAD LARGE BM THIS AM. VSS, SR/BBB ON THE MONITOR. PT TO HAVE DIALYSIS THIS AFTERNOON. WILL CONTINUE WITH PLAN OF CARE
--- NOTE | 2017-09-18 14:26 | NUR ---
CM SPOKE TO THE PATIENT AND HIS TO DISCUSS DISCHARGE PLANNING NEEDS AND THE DR'S RECOMMENDATION OF SNF AT DISCHARGE. PATIENT AND IN AGREEMENT AND STATE THAT THEY WOULD LIKE A REFERRAL SENT TO [facility], BECAUSE THEY LIVE IN [place]. CM SPOKE TO BYRON WITH ADMISSIONS AT [facility] TO INFORM OF THE REFERRAL FOR SNF PLACEMENT, FAXED THE PATIENT'S CLINICAL INFO, AND INFORMED THAT PT/OT NOTES WOULD BE FAXED WHEN AVAILABLE. CM WILL REMAIN AVAILABLE TO ASSIST AND FOLLOW NEEDED. [facility] PHONE: [phone] FAX: [phone]
--- NOTE | 2017-09-18 21:52 | NUR ---
PATIENT RETURNED TO UNIT AT 2013 FROM DIALYSIS. PATIENT ALERT AND ANSWERS QUESTIONS APPROPRIATELY AT THIS TIME. VITALS STABLE. ON 3.5 LITERS OF OXYGEN. DINNER PROVIDED. BED ALARM IN USE. NURSING WILL CONTINUE TO MONITOR.
[2017-09-19] VITALS: BP 95/50
[2017-09-19 04:00] VITALS: BP 92/50
[2017-09-19 04:47] LABS: CALCIUM 7.6 mg/dL (8.5-10.1); CREATININE 3.3 mg/dL (0.6-1.3); MAGNESIUM 2.6 mg/dL (1.8-2.4); POTASSIUM 4.5 mmol/L (3.5-5.1)
[2017-09-19 04:48] LABS: HEMATOCRIT 35.7 % (42.0-52.0); HEMOGLOBIN 11.6 gm/dL (14.0-18.0); MCH 28.9 pg (26.0-34.0); MCHC 32.5 g/dL (28.0-37.0); MPV 8.4 fl. (7.2-11.1); RBC 4.01 mil/uL (4.50-6.00); RDW-CV 14.4 % (10.5-14.5); WBC 26.2 thou/uL (4.0-11.0)
--- NOTE | 2017-09-19 05:16 | NUR ---
PATIENT SEEMS A LITTLE MORE CONFUSED THIS MORNING. DROWSY. NO COMBATIVE BEHAVIOR DURING MY SHIFT. I DID NOT WITNESS ANY HALLUCINATIONS. REPOSITIONED EVERY TWO HOURS. BARRIER CREAM APPLIED TO BUTTOCK. VITALS STABLE ON 3.5 LITERS OF OXYGEN. NEW IV PLACED IN LEFT FOREARM, SALINE LOCKED. RIGHT IJ IN PLACED. BRAVO TO DEPENDENT DRAINAGE, URINE YELLOW. CONTINUES TO TAKE OXYGEN OFF DURING THE NIGHT. ORAL CARE PROVIDED. TOOK PILLS WHOLE ONE AT A TIME. SLEPT ON AND OFF DURING THE NIGHT. FREQUENT ROUNDS. AFIB ON THE STOCK PARTS INSPECTOR. BED ALARM IN USE. NURSING WILL CONTINUE TO MONITOR.
--- NOTE | 2017-09-19 05:35 | NUR ---
DR. PARKER AWARE OF POSIIVE SEPSIS SCREEN. NO ORDERS RECEIVED AT THIS TIME.
--- NOTE | 2017-09-19 07:15 | NUR ---
CHANGE OF SHIFT, BEDSIDE REPORT GIVEN ASSUMED PATIENT CARE PATIENT SEEN AT BEDSIDE, ASLEEP BED ALARM ON
[2017-09-19 08:00] VITALS: BP 103/67
[2017-09-19 08:08] LABS: URINE PROTEIN (MG/DL) 20.2 mg/dL (Not Estab.)
--- NOTE | 2017-09-19 10:05 | NUR ---
Refaxed referral to [place] at [facility]. Awaiting decision to accept. Nephro following, Pt receiving daily dialysis at this time.
--- NOTE | 2017-09-19 10:41 | CON ---
[address] [address] CONSULTATION Name: YAO LOYA Room: [address] IN M.R.#: [id number] Admission: 09/09/17 Attend Phys: Caren Girard MD Discharge: Date of : 42 Report #: [id number] THIS REPORT FOR: //name// CC: Caren Almaraz DATE OF SERVICE: 09/10/2017 REQUESTING PHYSICIAN: Rosales Barrientos M.D. REASON FOR CONSULTATION: Acute kidney injury. HISTORY OF PRESENT ILLNESS: The patient is a 77-year-old man with medical history significant for diabetes mellitus type 2, history of hypertension, history of benign prostatic hypertrophy followed by Dr. Garcia. He was admitted to the hospital on 09/09/2017 with complaints of not feeling well, having some fever, chills, cough, shortness of breath. Symptoms started several days prior to admission. His primary care physician told him already on Saturday that he had some acute kidney injury, so he came to the hospital and was diagnosed with pneumonia, acute kidney injury, started with antibiotics, IV fluids. PAST MEDICAL HISTORY: 1. Diabetes mellitus type 2. 2. History of hypertension. 3. History of benign prostatic hypertrophy. MEDICATIONS: Prior to admission reviewed. He was on aspirin, metformin, tamsulosin, digoxin, diltiazem, and naproxen. REVIEW OF SYSTEMS: Positive for weakness, shortness of breath, cough, has some dysuria. Denies being depressed. Denies having changes in visual or hearing acuity. Denies having blood in stool or urine. FAMILY HISTORY: Noncontributory. SOCIAL HISTORY: No current tobacco or alcohol abuse. PHYSICAL EXAMINATION: GENERAL: Awake, alert, oriented. VITAL SIGNS: Blood pressure 128/80, heart rate 94, afebrile. HEENT: Pupils round. NECK: Supple. LUNGS: Decreased air movement. CARDIOVASCULAR EXAMINATION: Distant heart tones. ABDOMEN: Soft. LOWER EXTREMITIES: [place] [address] CONSULTATION Name: YAO LOYA Room: [address] IN [facility].#: [id number] Admission: 09/09/17 Attend Phys: Caren Girard MD Discharge: Date of : 42 Report #: [id number] LABORATORY DATA: Report from today chemistries are pending from yesterday, serum sodium 128, potassium 5.2, chloride 96, BUN 111, creatinine 2.6. Blood sugar 448, calcium 8.2. White count of 19.3. Urinalysis unremarkable. Renal ultrasound pending. Chest x-ray showed cardiomegaly, minor atelectasis or infiltrates and possible pleural fluid. ASSESSMENT: 1. A 77-year-old gentleman admitted with possible pneumonia. He has acute kidney injury. His acute kidney injury is multifactorial. He was on naproxen 500 mg twice a day, so he could have nonsteroidal-induced acute interstitial nephritis. He also did have the component of acute kidney injury due to infection process. At this point, continue with antibiotics, continue with gentle hydration, obtain renal ultrasound. We will ask Dr. Garcia also see him. He cannot rule out urinary retention. The patient tells me that he has history of urinary retention. Avoid non-steroidals in the future, avoid Bactrim. 2. Pneumonia. 3. Diabetes mellitus type 2. His blood sugar was not controlled, likely due to infection process. 4. History of hypertension. Thank you very much for asking my opinion on acute kidney injury on the patient. We will follow with you. <ELECTRONICALLY SIGNED> By: Rachel Fuentes MD 09/19/17 1041 1239 1848Alexdorian De Anda MD /[facility]
[2017-09-19 16:19] VITALS: BP 95/54
--- NOTE | 2017-09-19 19:57 | NUR ---
PATIENT REMAINS A AND O X 2, PERSON AND PLACE LETHARGIC MOST OF DAY, MORE SO AFTER DIALYSIS AFIB, RATES 70S-90S LUNGS DIM THROUGHOUT O2 3.5 L NC O2 SATS MISD 90S MOUTH AND ORAL CARE GIVEN FREQ TODAY LIPS AND AND TONGUE VERY DRY AT START OF SHIFT, IMPROVED AT THE END OF DAY ENCOURAGED, OFFERED, AND ASSISTED WITH ORAL INTAKE THROUGHOUT DAY POOR APPETITE TODAY ALTERD DIET, MECH SOFT, ASSIST FEED LAST BM T-2 POOR UO 50CC TODAY, DARK AND CONCENTATED BRAVO TO DD DIALYSIS TODAY FROM [id number], 1.5 L OFF BR TURN Q 2HR/PRN EDEMA BLE 3+ AND SCROTUM 3-4+ NO SCDS IN PLACE BLE AND SCROTUM ELEVATED BOTTOM/RECTUM RED, CLEANSED AND ANTIFUNGAL CREAM APPLIED ABN LABS MONITORED WBC 26.2, BUN 83, CR 3.3 ACCUCHECKS 209/138/[address] AND BED ALARM ON
[2017-09-19 20:00] VITALS: BP 96/60
[2017-09-20 00:05] VITALS: BP 109/63
[2017-09-20 04:00] VITALS: BP 98/60
--- NOTE | 2017-09-20 06:06 | NUR ---
PATIENT NOT PROGRESSING TOWARDS GOALS: PATIENT WILL RECEIVE DIALYSIS AGAIN TODAY. INCONTINENT OF NUMEROUS BOWEL MOVEMENTS THIS SHIFT. LLOYD CARE PROVIDED AND PHYTOPLEX AF MOISTURE BARRIER CREAM APPLIED. PATIENT REPOSITIONED THROUGHOUT SHIFT, SCROTUM AND EXTREMITIES ELEVATED. PATIENT REMAINS OLIGURIC WITH MINIMAL OUTPUT IN BRAVO. HOURLY ROUNDING OBSERVED. CALL LIGHT WITHIN REACH
--- NOTE | 2017-09-20 12:00 | NUR ---
BROUGHT PT DOWN FROM DYALSIS ASSESSED AND DOCUMENTED. 2L REMOVED. PT IS ALERT BUT LETHARGIC. PT IS A-FIB ON THE CARDIAC MONITER. PT HAS 3+ EDEMA IN BLLE'S AND NOTED EDEMA IN BLUE'S. PT IS AFEBRILE. BP IS 95/62. PT HAS A BRAVO WITH CLEAR YELLOW URINE. PT HAS A RED COCCYX AND WILL BE ON TURN AND REPOSITIONING Q2 HOURS. PT HAD A BM AND PHYTOPLEX WAS APPLIED. PT IS ON 3L OF 02. WM.
[2017-09-20 12:11] VITALS: BP 95/62
--- NOTE | 2017-09-20 12:52 | NUR ---
Following through dc. Spoke with Dr Fuentes, she thinks its too early to tell if Pt will need outpt HD set up. Updated Dr Barrientos, in agreement that Pt will likely need LTAC at dc. Anticipate dc next week. CM to speak with family and initiate LTAC referral.
--- NOTE | 2017-09-20 15:29 | 2DMMODE ---
[place] [address] 2 D/M-MODE ECHOCARDIOGRAM Name: SHALINIYAOFRANKLYN MONTALVO Room: [address] IN .[place].#: [id number] Admission: 09/09/17 Attend Phys: Caren Girard, Discharge: Date of : 42 Date of Service: 09/20/17 1528 Report #: [id number] THIS REPORT FOR: //name// APPROVED REPORT Study performed: 09/20/2017 14:34:57 EXAM: Limited 2D Echocardiogram Patient Location: Bedside BSA: 2.17 HR: 97 bpm BP: 98/60 mmHg Other Information Study Quality: Fair Indications Pericardial Effusion Pleural Effusion Sepsis 2D Dimensions LVEF(%): 57.85 (>50%) IVSd: 10.58 (7-11mm) LVOT Diam: 18.76 (18-24mm) LVDd: 27.55 mm PWd: 8.00 (7-11mm) Ascending Ao: 30.73 (22-36mm) LVDs: 19.53 (25-40mm) Aortic Root: 29.96 mm Lau's LVEF: 57.85 % Aortic Valve AoV Peak Sukhjinder.: 1.46 m/s AO Peak Gr.: 8.53 mmHg LVOT Max P.10 mmHg AO Mean Gr.: 5.36 mmHg LVOT Mean P.47 mmHg LVOT Max V: 1.01 m/s AO V2 VTI: 19.82 cm LVOT Mean V: 0.75 m/s JANEEN (VTI): 2.61 cm2 LVOT V1 VTI: 18.71 cm Left Ventricle The left ventricle is normal size. There is normal LV segmental wall motion. Mild concentric left ventricular hypertrophy. The left ventricular systolic function is normal. The left ventricular ejection fraction is within the normal range. LVEF is 55-60%. [place] [address] 2 D/M-MODE ECHOCARDIOGRAM Name: YAO LOYA Room: [address] IN [facility].#: [id number] Admission: 09/09/17 Attend Phys: Caren Girard, Discharge: Date of : 42 Date of Service: 09/20/17 1528 Report #: [id number] The right ventricle is normal size. Atria The left atrium size is normal. The right atrium size is normal. Aortic Valve Aortic valve is calcified. Mild aortic stenosis. Mitral Valve The mitral valve is normal in structure. Tricuspid Valve The tricuspid valve is normal in structure. Pulmonic Valve Pulmonic valve is not well visualized. Great Vessels The aortic root is normal in size. Pericardium Large pericardical effusion. No evidence of hemodynamic compromise Pleural Effusion is present. <Conclusion> Mild concentric left ventricular hypertrophy. LVEF is 55-60%. Mild aortic stenosis. Large pericardical effusion. No evidence of hemodynamic compromise <ELECTRONICALLY SIGNED> By: Esteban Perrin MD, FACC 09/20/17 1528 1528 1528 Esteban Perrin MD, FACC /INF
[2017-09-20 16:19] VITALS: BP 100/63
--- NOTE | 2017-09-20 18:39 | NUR ---
PT IS RESTING IN HIS ROOM. HE HAS CONT ON TURN AND REPOSITIONING. BRAVO HAS TEA COLORED URINE. EDUCATION GIVEN ON DEMAND. HOURLY ROUNDING COMPLETE. PT HAS HAD A FAIR APPETITE THIS SHIFT. PT HAS SLEPT ALOT OF THIS SHIFT BUT SEEMS LESS LETHARGIC. PT HAS TREMORS AND CONT TO HAVE EDEMA.
[2017-09-20 20:00] VITALS: BP 108/60
[2017-09-21 00:08] VITALS: BP 91/58
[2017-09-21 04:05] VITALS: BP 89/56
[2017-09-21 04:42] LABS: HEMATOCRIT 36.6 % (42.0-52.0); HEMOGLOBIN 11.7 gm/dL (14.0-18.0); MCHC 31.9 g/dL (28.0-37.0); MCV 90.9 fL (80.0-100.0); MPV 9.1 fl. (7.2-11.1); RBC 4.03 mil/uL (4.50-6.00); RDW-CV 14.5 % (10.5-14.5); WBC 27.5 thou/uL (4.0-11.0)
[2017-09-21 04:47] LABS: CALCIUM 7.7 mg/dL (8.5-10.1); CREATININE 3.4 mg/dL (0.6-1.3); MAGNESIUM 2.6 mg/dL (1.8-2.4); POTASSIUM 4.5 mmol/L (3.5-5.1)
--- NOTE | 2017-09-21 04:57 | NUR ---
NO CHANGES WITH PATIENT OVERNIGHT. PATIENT REMAINS LETHARGIC. DENIES PAIN OR DISCOMFORT. REPOSITIONED Q2H. INCONTINENT OF STOOL WITH MULTIPLE BOWEL MOVEMENTS THROUGHOUT SHIFT. LLOYD CARE PROVIDED, MOISTURE BARRIER APPLIED. HOURLY ROUNDING OBSERVED. CALL LIGHT WITHIN REACH
[2017-09-21 08:30] VITALS: BP 96/55
[2017-09-21 12:21] VITALS: BP 99/54
[2017-09-21 16:13] VITALS: BP 101/60
--- NOTE | 2017-09-21 18:46 | NUR ---
ASSUMED PT CARE AT 0730, FULL ASSESMENT DONE CHARTED. PT A/O X4 BUT FORGETFUL AT TIMES. PT C/O SOME PAIN IN LOW BACK, PT REPOSITIONED AND PAIN MEDS HELPED SOME. PT RESTING MORE COMFORTABLY. TURNED Q2 HR. BOTTOM RED, WITH AREAS OF RAISED LESIONS. ANTIFUNGAL BARRIOR CREAM APPLIED THROUGH THE SHIFT NEEDED. PT HAD 2 INCONT BM'S TODAY. STOOL IS SOFT/FORMED. BRAVO IN PLACE DRAINING DARK YELLOW URINE, PT OLIGURIC. PT DOES NOT HAVE MUCH APITITE, ENCOURAGED TO HAVE SNACKS BETWEEN MEALS AND ASSISTED TO EAT. FALL PRECATUIOINS IN PLACE, CALL LIGHT IN REACH. PT DOES NOT ATTEMPT TO USE IT BUT CHECKED ON FREQUENTLY. WILL CONTINUE TO MONITOR.
[2017-09-21 20:45] VITALS: BP 91/54
[2017-09-22] VITALS (7 sets, daily range): BP systolic 73–103; BP diastolic 55–67
[2017-09-22 05:31] LABS: CALCIUM 8.2 mg/dL (8.5-10.1); CREATININE 4.1 mg/dL (0.6-1.3); MAGNESIUM 2.8 mg/dL (1.8-2.4); PHOSPHORUS* 6.4 mg/dL (2.5-4.9)
--- NOTE | 2017-09-22 07:41 | NUR ---
Pt's BP upper 80's to low 90's/50's. Alert, answers questions appropriately. This am, BG 40. Apple juice and crackers with PB given. Recheck shows 44, and additional apple juice given. 2nd recheck was 94. Pt incontinent of bowels 4X during first half of shift, small amounts of dk brown stool. Parikh draining yellow urine, 125 mls out for shift. Turned q2h. Will be going for dialysis treatment this am. Will continue to monitor.
--- NOTE | 2017-09-22 08:47 | NUR ---
PT TAKEN TO DIALYSIS VIA CART
--- NOTE | 2017-09-22 10:45 | NUR ---
PT BROUGHT BACK TO ROOM BY DIALYSIS NURSE. UNABLE TO PERFORM DIALYSIS LINE IS OCCLUDED. DR DAUGHERTY AWARE. WILL NOTIFY DR CRAIG FOR ORDERS
--- NOTE | 2017-09-22 13:00 | NUR ---
SPOKE WITH DR SALINAS RE:PTS NEED FOR A DIALYSIS CATHETER. CATHETER TO BE PLACED IN AM
--- NOTE | 2017-09-22 17:48 | NUR ---
PT RESTING IN BED THROUGHOUT SHIFT. PT DIALYSIS CATH NOT WORKING-PLAN TO REPLACE CATHETER TOMORROW. BRAVO CATH DRAINING SM AMT OF URINE. PT A&OX3 THROUGHOUT SHIFT. PT REPOSITIONED FREQUENTLY. PT FED MEALS-POOR APPETITE. SPOKE TO AND UPDATED HER ON PLAN OF CARE
[2017-09-23 00:22] VITALS: BP 94/49
[2017-09-23 03:57] VITALS: BP 89/61
--- NOTE | 2017-09-23 04:40 | NUR ---
Pt's SBP continues to be in 90s. Pt alert, forgetful. Had been on 2L O2 per NC, but found multiple times with cannula off. SaO2 93-95% on RA, so has been on RA for most of shift. Plan is to have new dialysis cath placed today as current catheter is not patent. Turned q2h, incontinent of soft unformed stools at times. Will continue to monitor.
[2017-09-23 04:41] LABS: CALCIUM 7.7 mg/dL (8.5-10.1); MAGNESIUM 2.9 mg/dL (1.8-2.4); PHOSPHORUS* 7.7 mg/dL (2.5-4.9)
[2017-09-23 08:00] VITALS: BP 97/59
--- NOTE | 2017-09-23 08:42 | NUR ---
DR SALINAS AT FOR ADJUSTMENT OF DIALYSIS CATHETER. PT TOLERATED WELL. DR CHRISTIAN NOTIFIED-NO DIALYSIS ORDERS RECEIVED AT THIS TIME
[2017-09-23 12:26] VITALS: BP 108/45
--- NOTE | 2017-09-23 16:00 | NUR ---
PT REPOSITIONED THROUGHOUT SHIFT. IN CHAIR WITH MAXIMUM ASSIST MOST OF THE AFTERNOON. DR SALINAS AT TO OPEN DIALYSIS CATH THIS AM. PT ON RA 94%. A&OX3. PT POOR APPETITE AND WILL EAT ONLY A FEW BITES WITH MUCH ENCOURAGEMENT. BRAVO CATH DRAINING SM AMT OF URINE. PT TO DIALYSIS THIS PM
--- NOTE | 2017-09-23 16:05 | NUR ---
RECEIVED CALL FROM LEAD FABRICATOR MAMADOU. RAPID RESPONSE CALLED. PT BECAME UNRESPONSIVE AND APNEIC BREATHING. PT SAT 72% PT PLACED ON NRB 15 L AND SATS INCREASED TO 90S. BP STABLE. BG 179. DR SOUZA NOTIFIED. ORDERS RECEIVED
--- NOTE | 2017-09-23 16:30 | NUR ---
UPON RETURNING TO UNIT- PT APPEARS TO RHYTHM CHANGE. EKG PERFORMED IN DIALYSIS. ACCELERATED JUNCTIONAL RHYTHM WITH ST ELEVATION. DR SOUZA NOTIFIED. CARDIOLOGY CONSULT RECEIVED
[2017-09-23 17:30] LABS: BE -5.1 mmol/L (-2 to +3); HCO3 18.4 mmol/L (22.0-26.0); PO2 71.5 mmHg (75.0-100.0); pH 7.405 (7.340-7.450)
[2017-09-23 20:10] VITALS: BP 80/60
[2017-09-24] VITALS (10 sets, daily range): BP systolic 71–110; BP diastolic 39–58
[2017-09-24 05:08] LABS: ALBUMIN 2.4 g/dL (3.4-5.0); CALCIUM 7.2 mg/dL (8.5-10.1); PHOSPHORUS* 8.9 mg/dL (2.5-4.9)
--- NOTE | 2017-09-24 05:10 | NUR ---
PT IS ABLE TO COMMUNICATE NEEDS TO STAFF WITH MINOR DIFFICULTY; HE IS DROWSY, BUT WILL ANSWER QUESTIONS AND FOLLOW COMMANDS. CURRENT PAIN MEDICATION REGIMEN HAS BEEN ADEQUATE FOR CONTROLLING HIS PAIN UP TO THIS TIME. OXYGEN TITRATED DOWN OVERNIGHT, BUT HE IS NOT COMPLETELY ON ROOM AIR AT THIS TIME. BRVAO IS PATENT.
[2017-09-24 09:48] LABS: HEMATOCRIT 35.6 % (42.0-52.0); HEMOGLOBIN 11.2 gm/dL (14.0-18.0); MCH 28.9 pg (26.0-34.0); MCHC 31.5 g/dL (28.0-37.0); MPV 9.7 fl. (7.2-11.1); NUCLEATED RBCS 0 /100WBC; PLATELET COUNT* 204 thou/uL (150-400); RBC 3.88 mil/uL (4.50-6.00); RDW-CV 14.6 % (10.5-14.5); WBC 27.1 thou/uL (4.0-11.0)
[2017-09-24 10:05] LABS: ALBUMIN 2.3 g/dL (3.4-5.0); CALCIUM 7.2 mg/dL (8.5-10.1); CREATININE 5.3 mg/dL (0.6-1.3); TOTAL BILIRUBIN 1.4 mg/dL (<0.1-1.0); TOTAL PROTEIN 5.9 g/dL (6.4-8.2)
[2017-09-24 10:07] LABS: POTASSIUM 6.8 mmol/L (3.5-5.1)
[2017-09-24 10:13] LABS: ABSOLUTE LYMPHOCYTES 0.5 thou/uL (0.8-5.3); ABSOLUTE MONOCYTES 0.8 thou/uL (0.0-1.2); ABSOLUTE NEUTROPHILS 25.7 thou/uL (1.6-8.1)
[2017-09-24 10:15] LABS: PLATELET ESTIMATE ADEQUATE; POLYCHROMASIA 1+
--- NOTE | 2017-09-24 10:51 | NUR ---
ASSUMED CARE OF PT AT 0730. PT RESTING IN BED, VERY DROWSY AND LETHARGIC. PT ABLE TO ANSWER YES/NO QUESTIONS. AT BEDSIDE. BLOOD PRESSURE LOW AT 83/48. PRE DIALYSIS MIDODRINE GIVEN. REFER TO EMAR. PT TRACING ST ON THE DIRECTOR INDUSTRIAL MUSEUM. PT ON 7L HIGH FLOW NC SAT 92%. PT DENIES ANY PAIN OR SHORTNESS OF BREATH AT THIS TIME. PT INCONT OF BOWEL. BRAVO TO DEPENDENT DRAINAGE. OLIGURIC NOTED. TEMP DIALYSIS CATHETER IN PLACE TO RIGHT CHEST. PT CURRENTLY RECEIVING HEMODIALYSIS AT THIS TIME. PT BLOOD PRESSURE 70/40. ADDITIONAL 10MG PO MIDODRINE GIVEN. REFER TO EMAR. POTASSIUM RECHECK THIS AM BACK AT 6.8. DR SOUZA ON FLOOR AND AWARE. NO NEW ORDERS AT THIS TIME. PT APPETITE POOR. AM MEDS GIVEN WITH BOOST. AM ASSESSMENT CHARTED. MEDICATIONS PER MAR. AM INSULIN HELD PT APPETITE VERY POOR. PT REPOSITIONED EVERY 2 HOURS FOR COMFORT. HOURLY ROUNDING OBSERVED. BED IN LOW POSITION. BED ALARM IN PLACE. FALL PRECAUTIONS IN PLACE. CALL LIGHT WITHIN REACH. WILL CONTINUE PLAN OF CARE.
--- NOTE | 2017-09-24 10:56 | NUR ---
Spoke with at length about disposition. Discussed LTAC, in agreement, but unsure about which facility she would want Pt to go to. stated that her cousin was just in an LTAC and had a bad experience, so she wants to make sure that Pt does not go to that facility. to contact cousin to determine which facility that was and let CM know. Pt currently in dialysis, plans to drain fluid from around Pt's heart today or tomorrow. Following.
--- NOTE | 2017-09-24 13:10 | EKG ---
[place] [address] ELECTROCARDIOGRAM REPORT Name: YAO LOYANE Room: [address] ADM IN M.R.#: [id number] Admission: 09/09/17 Attend Phys: Caren Girard MD Discharge: Date of : 42 Report #: [id number] THIS REPORT FOR: //name// [facility] Test Date: 2017-09-23 Test Time: 16:41:08 Pat Name: YAO LOYA Department: Room: [address] Gender: M Crutching Contractor: EDOUARDULLCAMERON : 1940 Requested By: Caren Girard Order Number: [id number] Reading MD: Agustin Allison Measurements Intervals [place] Rate: 94 P: VT: QRS: 78 QRSD: 124 T: -7 QT: 440 QTc: 551 Interpretive Statements anterior STEMI Right bundle branch block Borderline ST elevation, anterior leads Baseline wander in lead(s) V2 Compared to ECG 09/13/2017 09:23:58 Accelerated junctional rhythm now present Right bundle-branch block now present ST (T wave) deviation now present Sinus rhythm no longer present T-wave abnormality no longer present Electronically Signed On 09-24-2017 13:10:30 MANAGER HVAC by Agustin Allison [email or web address] <ELECTRONICALLY SIGNED> By: Agustin Allison MD, [facility] 09/24/17 1310 164 1641 Agustin Allison MD, FAC /EPI
--- NOTE | 2017-09-24 14:00 | OP ---
[address] [address] OPERATIVE REPORT Name: YAO LOYA Room: [address] IN .R.#: [id number] Admission: 09/09/17 Attend Phys: Caren Girard MD Discharge: Date of : 42 Report #: [id number] THIS REPORT FOR: //name// CC: Caren Almaraz DATE OF SERVICE: 09/23/2017 PREOPERATIVE DIAGNOSIS: Acute kidney injury. POSTOPERATIVE DIAGNOSIS: Acute kidney injury. OPERATION: Over wire temporary dialysis catheter exchange. SURGEON: Donte Gauthier DO CONVEYOR CONSOLE OPERATOR: None. ANESTHESIA: 5 mL of lidocaine anesthetic subcutaneously. IMPLANTS: A 16 cm Mahurkar catheter in the right IJ. SPECIMENS: None. COMPLICATIONS: None. FINDINGS: Right IJ temporary dialysis catheter was nonfunctional. It was exchanged over wire for a new one. This aspirated and flushed well without issue. CLINICAL HISTORY: The patient is a 77-year-old man with acute kidney injury and it is felt that he is only going to require a temporary dialysis while inpatient. He previously had a right IJ temporary dialysis catheter placed. This has been nonfunctional at his last dialysis session and is in need of a new one. DETAILS OF PROCEDURE: After consent was obtained, he was positioned in his hospital bed. The right neck was prepped and draped in usual sterile fashion. Timeout was performed identifying correct patient and procedure. Next, the sutures were cut on the previous tunneled dialysis catheter. The wire was passed through the tunneled dialysis catheter, met some resistance, suspected clot. I was able to push through this with return of venous blood with the wire in position within the vessel. The catheter was removed and the new temporary catheter was then passed over the wire to a tub. This catheter aspirated and flushed quite easily. The catheter was then secured to the right neck with 2-0 nylon suture. Again, the catheter was aspirated [place] [address] OPERATIVE REPORT Name: YAO LOYA Room: [address] IN [facility].#: [id number] Admission: 09/09/17 Attend Phys: Caren Girard MD Discharge: Date of : 42 Report #: [id number] Sterile dressing was applied. All counts were reported as correct. He tolerated it well at the bedside. The catheter may be used immediately for dialysis needs. <ELECTRONICALLY SIGNED> By: Donte Gauthier DO 09/24/17 1400 1011 1042Acarroll Gauthier DO /nt
--- NOTE | 2017-09-24 15:53 | 2DMMODE ---
[facility] [address] [place] [address] 2 D/M-MODE ECHOCARDIOGRAM Name: YAO LOYA Room: [address] IN [facility]#: [id number] Admission: 09/09/17 Attend Phys: Caren Girard, Discharge: Date of : 42 Date of Service: 09/24/17 155 Report #: [id number] THIS REPORT FOR: //name// APPROVED REPORT Study performed: 09/24/2017 14:08:05 EXAM: Limited 2D Echocardiogram Patient Location: In-Patient Room #: 202 Status: routine BSA: 2.08 HR: 121 bpm BP: 83/48 mmHg Other Information Study Quality: Good Indications Pericardial Effusion Left Ventricle Regional wall motion is grossly normal. LVEF is 55-60%. Right Ventricle no diastolic RV collapse Pericardium Large pericardial effusion. No echo indications of pericardial tamponade. Moderate pleural effusion. <Conclusion> LVEF is 55-60%. Large pericardial effusion.Mild decrease in size compare to prior 09/20 study No echo indications of pericardial tamponade. Moderate pleural effusion. <ELECTRONICALLY SIGNED> By: Agustin Allison MD, FACC 09/24/17 1553 155 1553 Agustin Allison MD, FACC /INF
--- NOTE | 2017-09-24 15:59 | NUR ---
PT HAD DIALYSIS TODAY- DID NOT TOLERATE WELL. BLOOD PRESSURE LOW DURING. NO FLUID TAKEN OFF PER DIALYSIS NURSE. MIDODRINE GIVEN X3 TODAY. REFER TO EMAR. THIS RN CLARIFIED WITH PHARMACY REGARDING FREQUENCY OF GIVING MIDODRINE AND OK TO GIVE Q3H. PT CURRENTLY BLOOD PRESSURE 81/51. EKG OBTAINED POST DIALYSIS TRACING ST WITH BBB. POTASSIUM REMAINS AT 6.8. NO NEW ORDERS FOR REDRAW UNTIL AM PER DR SOUZA. PT HAD ECHO TODAY. AWAITING RESULTS AT THIS TIME. N[employer] S[employer] RENAL SUPPLEMENT BID. PT CONTINUES TO BE DROWSY AND LETHARGIC. PT ANSWERS YES/NO QUESTIONS. CONTINUES TO TRACE ST WITH BBB ON THE FURRIER SHOP SUPERVISOR. BRAVO TO DEPENDENT DRAINAGE. OLIGURIC NOTED. PT CONTINUES TO BE ON 7L HIGH FLOW NC SAT UPPER 90'S. PT DENIES ANY PAIN OR SHORTNESS OF BREATH. CARDIOLOGY CONSULTED FOR PERICARDIAL EFFUSION DRAINAGE. GITA, CARDIOLOGY HEARING STENOGRAPHER HERE TO SEE PT AND SPEAKING WITH PT AND PT AT THIS TIME REGARDING POSSIBLE TRANSFER TO [facility] FOR THORACIC CARDIO SURGEON. MEDICATIONS PER NOV. PT REPOSITIONED EVERY 2 HOURS FOR COMFORT. HOURLY ROUNDING OBSERVED. BED IN LOW POSITION. BED ALARM IN PLACE. FALL PRECAUTIONS IN PLACE. CALL LIGHT WITHIN REACH. WILL CONTINUE PLAN OF CARE.
--- NOTE | 2017-09-24 17:04 | NUR ---
Pt transferring to [facility] today, ambulance arranged for 6pm oyster picker. Pt accepted under the care of Dr Cagle to room [id number]. Nurse report number is [phone]. Updated Pt's , JANIE form completed, copy sent with Pt.
--- NOTE | 2017-09-24 19:02 | NUR ---
PT TRANSFERRED TO [facility] VIA EMS WITH ALL BELONGINGS, PAPERWORK AND . POLICE INSPECTOR REMOVED.
--- NOTE | 2017-09-25 15:25 | EKG ---
[place] [address] ELECTROCARDIOGRAM REPORT Name: YAO LOYANE Room: [address] DIS IN M.R.#: [id number] Admission: 09/09/17 Attend Phys: Caren Girard MD Discharge: 09/24/17 Date of : 42 Report #: [id number] THIS REPORT FOR: //name// [facility] Test Date: 2017-09-24 Test Time: 13:46:13 Pat Name: YAO LOYA Department: Room: [address] Gender: M Cytotechnologist Supervisor: : 1940 Requested By: Rosales Barrientos Order Number: [id number] Natasha MD: Ricardo Momin Measurements Intervals [place] Rate: 125 P: 0 CA: 56 QRS: 63 QRSD: 115 T: -27 QT: 367 QTc: 530 Interpretive Statements Sinus tachycardia or svt Right bundle branch block Low voltage, extremity and precordial leads Baseline wander in lead(s) V2 Compared to ECG 09/23/2017 16:41:08 Low QRS voltage now present ST (T wave) deviation no longer present Electronically Signed On 09-25-2017 15:25:09 WAREHOUSE ADMINISTRATIVE ASSISTANT by Ricardo Momin [email or web address] <ELECTRONICALLY SIGNED> By: Ricardo Momin MD, FAC 09/25/17 1525 1346 1346 Ricardo Momin MD, [facility] /EPI
--- NOTE | 2017-10-03 20:20 | CON ---
[address] [address] CONSULTATION Name: YAO LOYA Room: [address] IN .R.#: [id number] Admission: 09/09/17 Attend Phys: Caren Girard MD Discharge: 09/24/17 Date of : 42 Report #: [id number] THIS REPORT FOR: //name// CC: Caren Almaraz DO DICTATED BY: Felicity Hall [facility] DATE OF SERVICE: 09/11/2017 Please note at the time of this dictation, the patient was seen and physically examined by myself. REFERRING PHYSICIAN: Caren Girard MD REASON FOR CONSULTATION: Abdominal pain and bloating. HISTORY OF PRESENT ILLNESS: This is a 77-year-old male who presented to the emergency room after being told by his PCP that he had extremely abnormal lab values and that he was in some renal failure and needed to go to the ER. Prior to that, the patient had been seen in their office and was placed on Cipro for a UTI at that time. The patient states he just started developing bloating why he was here. He states that he does not recall when his last bowel movement was at this time, but he has had no vomiting. PAST MEDICAL HISTORY: Hypertension, diabetes, AFib, GIST, and non-Hodgkin's lymphoma. PAST SURGICAL HISTORY: Back surgery, he had a tumor in 1986, prostate surgery and GIST surgery with in January 2016. ALLERGIES: CONTRAST DYE and METOPROLOL. MEDICATIONS FROM HOME: Aspirin, metformin, Tylenol, tramadol, cranberry, calcium, garlic, multivitamin, saw palmetto, dig, flaxseed, diltiazem, and naproxen. FAMILY HISTORY: Noncontributory. SOCIAL HISTORY: Denies any alcohol, tobacco or illegal drug use. REVIEW OF SYSTEMS: Twelve-point review of systems is essentially negative except what is mentioned in the HPI. PHYSICAL EXAMINATION: [place] [address] CONSULTATION Name: YAO LOYA Room: [address] IN ..#: [id number] Admission: 09/09/17 Attend Phys: Caren Girard MD Discharge: 09/24/17 Date of : 41 Report #: [id number] VITAL SIGNS: Temperature 36.5, pulse 85, respirations 20, and blood pressure 106/70. HEART: Regular rate and rhythm. LUNGS: Diminished especially on the left. ABDOMEN: Distended, hypoactive bowel sounds and with some discomfort noted at the time of palpation. NEUROLOGIC: The patient is not willing to answer questions due to his discomfort at the time of this dictation. LABS: Hemoglobin is 12.2, hematocrit 37.4, white count is 22.6, and platelets 556. Sodium 131, potassium 5.4, chloride 101, CO2 of 17, BUN is 103, creatinine is 26, GFR is 24, and glucose is 121. Total bili is 4, alk phos 136, ALT 41, and AST is 20. Chest and abdominal x-ray are pending. IMPRESSION: 1. Abdominal pain. 2. Bloating. 3. Nausea. 4. Nonsteroidal anti-inflammatory drug use, naproxen. 5. 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 6. Acute tubular narcosis. 7. Pneumonia. PLAN: 1. Abdominal x-ray, findings pending. 2. Likely we will need an EGD to followup on regarding his GIST. 3. Further recommendations to be made once the above has been noted. Thank you for allowing us to participate in this patient's care. Please do not hesitate to call with any questions in regard to this consult. I have seen and examined the patient and agree with plans that have been outlined by nurse practitioner, Felicity Hall. At the present time, the patient has multiple other issues at this point in time and a CT scan was unremarkable for any GI issues. At the present time, we will hold off on any endoscopic studies of the upper GI tract, but can proceed with an upper endoscopy if and when he becomes stable for the same. This will be done to evaluate status of his GIS tumor after resection. <ELECTRONICALLY SIGNED> By: Rolando Schreiber DO 10/03/172019 1209 [id number] Schreiber DO /nt
== END 2017-09-24 19:00 | disposition short-term general hospital (02) | DRG 871 ==
LOC: M.ERS 18:24 → M.TBA-ER 21:24 → M.2W 21:24
PROVIDERS: Family Medicine; Internal Medicine; Internal Medicine Nephrology; Personal Emergency Response Attendant; ADMIT Internal Medicine
DX: A41.9 Sepsis, unspecified organism (principal); G92 Toxic encephalopathy; N17.0 Acute kidney failure with tubular necrosis; J18.1 Lobar pneumonia, unspecified organism; J15.9 Unspecified bacterial pneumonia; J96.91 Respiratory failure, unspecified with hypoxia; E43 Unspecified severe protein-calorie malnutrition; E11.00 Type 2 diabetes mellitus with hyperosmolarity without nonketotic hyperglycemic-hyperosmolar coma (NKHHC); E87.1 Hypo-osmolality and hyponatremia; E87.2 Acidosis; I31.3 Pericardial effusion (noninflammatory); K56.600 Partial intestinal obstruction, unspecified as to cause; R18.8 Other ascites; R31.0 Gross hematuria; N40.1 Benign prostatic hyperplasia with lower urinary tract symptoms; E11.65 Type 2 diabetes mellitus with hyperglycemia; E87.8 Other disorders of electrolyte and fluid balance, not elsewhere classified; D64.9 Anemia, unspecified; I10 Essential (primary) hypertension; E87.5 Hyperkalemia; K59.00 Constipation, unspecified; R33.8 Other retention of urine; T38.3X5A Adverse effect of insulin and oral hypoglycemic [antidiabetic] drugs, initial encounter; I48.91 Unspecified atrial fibrillation; E83.39 Other disorders of phosphorus metabolism; I48.2 Chronic atrial fibrillation; Z92.3 Personal history of irradiation; Y92.89 Other specified places as the place of occurrence of the external cause; Z85.72 Personal history of non-Hodgkin lymphomas; Z99.2 Dependence on renal dialysis; Z79.84 Long term (current) use of oral hypoglycemic drugs; Z79.82 Long term (current) use of aspirin; Z79.899 Other long term (current) drug therapy; Z88.8 Allergy status to other drugs, medicaments and biological substances; Z91.041 Radiographic dye allergy status; Z91.013 Allergy to seafood

== ENCOUNTER → 2017-12-10 | Outpatient (CLI) | payer MEDICARE, BC ==
[~2017-12-10] MED LIST changes: +AMOX TR-K CLV1 EAC3 PO; +ANTIVERT25 MG PO; +ASPIR 8181 MG PO; +ASPIRIN81 M2 PO; +CARAFATE 1 GM TA1 G1 PO; +CARAFATE 11 GM/10 M1 PO; +FLORINEF ACETA0.1 MG PO; +KENWOOD THERAP240 ML PO; +LASIX 80 MG TAB80 MG PO; +LEVEMIR SUBQ; +MIDODRINE HCL 55 M1 PO; +MIDODRINE HCL2.5 M1 PO; +NEXIUM40 MG PO; +NOVOLOG100 UNIT/1; +PEPCID20 MG PO; +SORINE 80 MG TA80 M1 PO; +ULTRAM 50MG TAB50 MG PO
[2017-12-10 13:25] LABS: ABSOLUTE BASOPHILS 0.1 thou/uL (0.0-0.2); ABSOLUTE EOSINOPHILS 0.1 thou/uL (0.0-0.7); ABSOLUTE MONOCYTES 1.1 thou/uL (0.0-1.2); ABSOLUTE NEUTROPHILS 7.2 thou/uL (1.6-8.1); BASOPHILS 0.8 %; EOSINOPHILS 0.9 %; HEMATOCRIT 24.6 % (42.0-52.0); HEMOGLOBIN 8.4 gm/dL (14.0-18.0); LYMPHOCYTES 10.7 %; MCH 29.5 pg (26.0-34.0); MCHC 34.2 g/dL (28.0-37.0); MCV 86.1 fL (80.0-100.0); MONOCYTES 11.7 %; MPV 7.2 fl. (7.2-11.1); NUCLEATED RBCS 0 /100WBC; PLATELET COUNT* 291 thou/uL (150-400); POLYS 75.9 %; RBC 2.86 mil/uL (4.50-6.00); RDW-CV 14.7 % (10.5-14.5); WBC 9.5 thou/uL (4.0-11.0)
[2017-12-10 13:56] LABS: ALBUMIN 2.8 g/dL (3.4-5.0); CALCIUM 8.8 mg/dL (8.5-10.1); CREATININE 1.1 mg/dL (0.6-1.3); POTASSIUM 4.4 mmol/L (3.5-5.1); TOTAL BILIRUBIN 0.4 mg/dL (<0.1-1.0); TOTAL PROTEIN 6.9 g/dL (6.4-8.2)
[2017-12-11 05:11] LABS: GLYCOHEMOGLOBIN (HGB A1C) 5.9 % (4.8-5.6)
== END ==
LOC: M.LAB 13:05
PROVIDERS: Family Medicine
DX: E11.69 Type 2 diabetes mellitus with other specified complication (principal); I10 Essential (primary) hypertension; K22.11 Ulcer of esophagus with bleeding; D50.8 Other iron deficiency anemias; Z86.19 Personal history of other infectious and parasitic diseases; Z87.448 Personal history of other diseases of urinary system

== ENCOUNTER 2017-12-16 18:59 | Inpatient (IN) | payer MEDICARE, BC ==
[~2017-12-16] VITALS: Ht 185.4 cm; Wt 80.3 kg
--- NOTE | ~2017-12-16 | PROC ---
[address] [address] PROCEDURE REPORT Name: YAO LOYA Room: [address] IN M.R.#: [id number] Admission: 12/16/17 Attend Phys: Rosales Barrientos MD Discharge: 12/21/17 Date of : 41 Report #: [id number] THIS REPORT FOR: //name// For GI report, please see the Provation report in Perceptive 7 content. By: [id number] Records Staff CARRIE /NAZ
[~2017-12-16 18:59] MED LIST changes: -AMOX TR-K CLV1 EAC3 PO; -ANTIVERT25 MG PO; -ASPIR 8181 MG PO; -ASPIRIN81 M2 PO; -CARAFATE 1 GM TA1 G1 PO; -CARAFATE 11 GM/10 M1 PO; -FLORINEF ACETA0.1 MG PO; -KENWOOD THERAP240 ML PO; -LASIX 80 MG TAB80 MG PO; -LEVEMIR SUBQ; -MIDODRINE HCL 55 M1 PO; -MIDODRINE HCL2.5 M1 PO; -NEXIUM40 MG PO; -NOVOLOG100 UNIT/1; -PEPCID20 MG PO; -SORINE 80 MG TA80 M1 PO
[2017-12-16 19:04] VITALS: BP 104/70
[2017-12-16] MEDS ORDERED: LEVEMIR SUBQ (19:12)
[2017-12-16] MEDS ORDERED: NOVOLOG100 UNIT/1 (19:13)
[2017-12-16 19:34] LABS: ABSOLUTE BASOPHILS 0.1 thou/uL (0.0-0.2); ABSOLUTE EOSINOPHILS 0.1 thou/uL (0.0-0.7); ABSOLUTE LYMPHOCYTES 1.6 thou/uL (0.8-5.3); ABSOLUTE NEUTROPHILS 7.7 thou/uL (1.6-8.1); BASOPHILS 0.9 %; EOSINOPHILS 1.3 %; HEMOGLOBIN 9.8 gm/dL (14.0-18.0); LYMPHOCYTES 15.5 %; MCH 28.6 pg (26.0-34.0); MCHC 33.8 g/dL (28.0-37.0); MCV 84.7 fL (80.0-100.0); MONOCYTES 9.7 %; MPV 7.4 fl. (7.2-11.1); NUCLEATED RBCS 0 /100WBC; PLATELET COUNT* 344 thou/uL (150-400); POLYS 72.6 %; RBC 3.42 mil/uL (4.50-6.00); RDW-CV 14.8 % (10.5-14.5); WBC 10.6 thou/uL (4.0-11.0)
[2017-12-16 19:41] LABS: ANION GAP 10 mmol/L (7-16); BUN 47 mg/dL (7-18); CALCIUM 9.3 mg/dL (8.5-10.1); CHLORIDE 101 mmol/L (98-107); CO2 26 mmol/L (21-32); CREATININE 1.5 mg/dL (0.6-1.3); GLUCOSE 147 mg/dL (70-99); POTASSIUM 4.7 mmol/L (3.5-5.1); SODIUM 137 mmol/L (136-145)
[2017-12-16 19:53] LABS: APTT 27.7 Seconds (25.0-31.3); PROTIME 10.1 Seconds (9.20-11.50)
[2017-12-16 20:00] LABS: ALBUMIN 2.8 g/dL (3.4-5.0); ALKALINE PHOSPHATASE 146 U/L (46-116); CK-MB MASS 0.6 ng/mL (<0.5-3.6); LIPASE 221 U/L (73-393); NT-PRO BRAIN NAT PEPTIDE 1131 pg/mL (<300); SGOT 16 U/L (15-37); SGPT 24 U/L (30-65); TOTAL BILIRUBIN 0.2 mg/dL (<0.1-1.0); TOTAL PROTEIN 7.8 g/dL (6.4-8.2); TROPONIN-I LEVEL <0.06 ng/mL (<0.06)
[2017-12-16 21:19] VITALS: BP 106/70
[2017-12-16 21:30] VITALS: BP 85/50
--- NOTE | 2017-12-16 21:30 | NUR ---
ASSUMED CARE FROM ER, ADMISSION COMPLETED CHARTED. AT BEDSIDE. PATIENT ALERT/ORIENTED X4, RESTING IN BED. PLACED ON TELE, ST. NOTED TO HAVE AFIB/FLUTTER OFF AND ON, RATE CONTROLLED, HAS HX OF AFIB. WEARING OXYGEN 2L/NC, NO SOB NOTED, SATS 100%. IVF INFUSING TO LEFT AC IV SITE PER MAR. INCONTIENT OF URINE/BOWEL, LLOYD-CARE GIVEN AND BARRIER CREAM APPLIED. WOUND NOTED TO SACRUM, PHOTO TAKEN AND PLACED IN CHART. WOUND CARE CONSULTED. SCD'S APPLIED. DR. SOUZA NOTIFIED, HS MEDS ORDERED. MEDS PER NOV. PATIENT TURNED AND REPOSITIONED IN BED WITH PILLOWS Q2H. ON A PUREED DIET AT HOME, HS MEDS CRUSHED AND GIVEN IN PUDDING, TOLERATING WELL. INSTRUCTED OF BEING NPO AFTER MIDNIGHT FOR AM CARDIOLOGY CONSULT. BED ALARM ON. TO SPEND THE NIGHT. CALL LIGHT WITHIN REACH, ENCOURAGED TO CALL FOR NEEDS.
[2017-12-16] MEDS ORDERED: PEPCID20 MG PO (21:48)
[2017-12-17] VITALS (7 sets, daily range): BP systolic 84–107; BP diastolic 51–71
[2017-12-17 08:18] LABS: CALCIUM 8.4 mg/dL (8.5-10.1); CREATININE 1.2 mg/dL (0.6-1.3); MAGNESIUM 1.9 mg/dL (1.8-2.4); POTASSIUM 4.5 mmol/L (3.5-5.1)
--- NOTE | 2017-12-17 08:45 | NUR ---
ASSUMED RESPONSIBILITY OF PT THIS AM PT IN BED UPON ARRIVAL DENIES ANY PAIN CONT WITH IV FLUIDS D/T DEHYDRATION STAGE II WOUND TO COCCYX PER HS NURSE NPO FOR CARDIOLOGY CONSULT MAY NEED PLACEMENT WHEN DISCHARGED
--- NOTE | 2017-12-17 11:39 | NUR ---
This RN agrees with the assessment of SN Madisyn.
--- NOTE | 2017-12-17 12:18 | NUR ---
MET WITH PT AND SPOUSE TO DISCUSS HOME SITUATION/DC PLANNING. JANETT/TAMMY HUBBARD HERE VISITING ALSO. PT IS KNOWN TO CM FROM PREVIOUS STAYS. PT LIVES WITH IN [place]. HIS SON/BELLA AND FRIEND RICO ARE HIS DPOA. PT HAD HOSPITAL STAY HERE IN AUG, WAS TRANSFERRED TO [facility] AND THEN TO [facility] FROM 10/14-11/07, THEN [facility] 11/07-12/05, HAS BEEN HOME SINCE WITH TAMMY HUBBARD. PER JANETT AND , HAS BEEN A 'STRUGGLE'. PT HAS WALKER, W/C, BATH BENCH, HOSPITAL BED. NEEDS ASSIST WITH BATHING, DRESSING AND PER , HAS NOT BEEN AMBULATING, ONLY TRANSFERRING OR STANDING IN PLACE OUT OF BED. STATES FRIENDS ASSIST BUT SHE HAS BEEN PRIMARY CAREGIVER. ALSO STATED HE HAD HAD 'BED SORES'. IS FOLLOWING AND COULD CONTINUE TO SEE HIM BUT CONCERNED PT MAY NEED PLACEMENT. AGREED BUT ASKED THAT CM DISCUSS WITH PT. HE WAS GETTING ECHO AND HAVING THERAPY EVALS. EXPLAINED TO , THAT CM WOULD FOLLOW AND SEE PT AGAIN AFTER EVALS DONE. THOUGHT PT MAY BE 'OUT' OF SNF DAYS WITH HIS MEDICARE BUT PER [facility], ONLY USED 31 DAYS. WILL DISCUSS FURTHER WITH PT TOMORROW
--- NOTE | 2017-12-17 14:19 | 2DMMODE ---
[place] [address] 2 D/M-MODE ECHOCARDIOGRAM Name: YAO LOYANE Room: [place] [address] ADM IN [facility]#: [id number] Admission: 12/16/17 Attend Phys: Rosales Barrientos, Discharge: Date of : 42 Date of Service: 12/17/17 1419 Report #: [id number] THIS REPORT FOR: //name// ADDENDUM APPROVED REPORT Study performed: 12/17/2017 10:12:28 EXAM: Comprehensive 2D, Doppler, and color-flow Echocardiogram Patient Location: In-Patient Room #: [facility] Status: routine BSA: 2.00 HR: 110 bpm BP: 93/58 mmHg Rhythm: NSR Other Information Study Quality: Good Indications Tachycardia RO Effusion, weakness 2D Dimensions LVEF(%): 60.66 (>50%) IVSd: 12.07 (7-11mm) LVOT Diam: 21.11 (18-24mm) LVDd: 41.19 mm PWd: 12.66 (7-11mm) Ascending Ao: 31.15 (22-36mm) LVDs: 27.99 (25-40mm) Aortic Root: 34.22 mm Lau's LVEF: 60.66 % Volumes Left Atrial Volume (Systole) LA ESV Index: 41.70 mL/m2 Aortic Valve AoV Peak Sukhjinder.: 1.95 m/s AO Peak Gr.: 15.20 mmHg LVOT Max P.10 mmHg AO Mean Gr.: 9.31 mmHg LVOT Mean P.11 mmHg LVOT Max V: 0.72 m/s AO V2 VTI: 31.24 cm LVOT Mean V: 0.49 m/s JANEEN (VTI): 1.32 cm2 LVOT V1 VTI: 11.76 [place] [address] 2 D/M-MODE ECHOCARDIOGRAM Name: YAO LOYA Room: [address] IN .R.#: [id number] Admission: 12/16/17 Attend Phys: Rosales Barrientos, Discharge: Date of : 41 Date of Service: 12/17/17 1419 Report #: [id number] E/A Ratio: 0.32 MV Decel. Time: 93.54 ms MV E Max Sukhjinder.: 0.48 m/s MV PHT: 27.13 ms MVA (PHT): 8.11 cm2 TDI E/Lateral E': 2.00 E/Medial E': 3.43 Medial E' Sukhjinder.: 0.14 m/s Lateral E' Sukhjinder.: 0.24 m/s Pulmonary Valve PV Peak Sukhjinder.: 0.99 m/s PV Peak Gr.: 3.94 mmHg Tricuspid Valve TR Peak Gr.: 18.72 mmHg RVSP: 23.00 mmHg Left Ventricle The left ventricle is normal size. There is normal LV segmental wall motion. Mild concentric left ventricular hypertrophy. Left ventricular systolic function is normal. LVEF is >70%. This study is not technically sufficient to allow evaluation of the LV diastolic function. Right Ventricle Right ventricle is mildly dilated. The right ventricular systolic function is normal. Atria Left atrium is mildly dilated. Right atrium is mildly dilated. Aortic Valve Moderate aortic valve sclerosis. No aortic regurgitation is present. Moderate aortic stenosis. Mitral Valve There is mitral annular calcification. Mild mitral regurgitation. No evidence of mitral valve stenosis. Tricuspid Valve The tricuspid valve is normal in structure. Trace tricuspid regurgitation. The RVSP is ____23___ mmHg. Pulmonic Valve The pulmonary valve is normal in structure. [place] [address] 2 D/M-MODE ECHOCARDIOGRAM Name: YAO LOYA Room: [address] IN [facility].#: [id number] Admission: 12/16/17 Attend Phys: Rosales Barrientos, Discharge: Date of : 42 Date of Service: 12/17/17 1419 Report #: [id number] valvular regurgitation. Great Vessels The aortic root is normal in size. IVC is normal in size and collapses with >50% inspiration Pericardium There is no pericardial effusion. <Conclusion> The left ventricle is normal size. Mild concentric left ventricular hypertrophy. Left ventricular systolic function is normal. LVEF is >70%. Right atrium is mildly dilated. Moderate aortic stenosis. There is mitral annular calcification. Mild mitral regurgitation. Trace tricuspid regurgitation. The RVSP is ____23___ mmHg. There is no pericardial effusion. <ELECTRONICALLY SIGNED> By: Gordon Tobar MD, FACC 12/17/17 1419 1419 1419 Gordon Tobar MD, FACC /INF
--- NOTE | 2017-12-17 14:46 | NUR ---
WOUND CARE NOTE: CONSULT RECEIVED FOR OPEN WOUND TO SACRUM. PATIENT PRESENTS WITH 2 OPEN AREAS TO THE RIGHT SIDE OF HIS SACRUM. PROXIMAL SACRAL WOUND: FULL THICKNESS, HEALING STAGE 3 PRESSURE ULCER MEASURING 0.3X0.5X0.1. MOIST, YELLOW WOUND BED. LLOYD-WOUND WITH NEW EPITHELIUM. DISTAL SACRAL WOUND: FULL THICKNESS, HEALING STAGE 3 PRESSURE ULCER MEASURING 0.2X0.9X0.1. MOIST, YELLOW WOUND BED. LLOYD-WOUND WITH NEW EPITHELIUM. CLEANSED BOTH WOUNDS WITH WOUND CLEANSER, PATTED DRY. APPLIED OPTIFOAM AG AND SECURED WITH TEGADERM. FAMILY MEMBER IN ROOM STATES HE GOT THE WOUNDS WHEN THEY WERE UNABLE TO GET HIM OUT OF A RECLINER FOR A COUPLE OF DAYS. PATIENT WITH NEW EPITHELIUM TO LEFT SIDE OF SACRUM TOO, EVIDENCE OF PREVIOUS PRESSURE ULCER. AREA LOOKS VERY GOOD, HEALING VERY WELL. EDUCATED PATIENT AND FAMILY MEMBER ON THE IMPORTANCE OF NUTRITION, OFFLOADING, AND BLOOD GLUCOSE CONTROL FOR WOUND HEALING, COMMUNICATED UNDERSTANDING. WOUNDS ARE HEALING NICELY. RECOMMEND TURN Q2 HOURS-PATIENT TURNED TO LEFT SIDE ENCOURAGE GOOD NUTRITION AND HYDRATION FOR WOUND HEALING TIGHT BLOOD GLUCOSE CONTROL WAFFLE CUSHION WHEN IN CHAIR-ORDERED KEEP OFF WOUNDS
--- NOTE | 2017-12-17 15:23 | EKG ---
[place] [address] ELECTROCARDIOGRAM REPORT Name: SHALINIYAOFRANKLYN MONTALVO Room: [place] [address] ADM IN .R.#: [id number] Admission: 12/16/17 Attend Phys: Rosales Barrientos MD Discharge: Date of : 41 Report #: [id number] THIS REPORT FOR: //name// [facility] ED Test Date: 2017-12-16 Test Time: 19:06:45 Pat Name: YAO LOYA Department: Room: [facility] Gender: M Flower Picker: AURA De León : 1940 Requested By: Jose Luis Lamar Order Number: [id number] MD: Gordon Tobar Measurements Intervals [place] Rate: 127 P: IA: QRS: 99 QRSD: 97 T: 25 QT: 342 QTc: 498 Interpretive Statements Atrial tachycardia Right axis deviation Borderline prolonged QT interval Baseline wander in lead(s) II,aVR,aVF,V1,V2,V3,V4,V5 Compared to ECG 09/24/2017 13:46:13 Atrial tachycardia now present Right-axis deviation now present Sinus tachycardia no longer present Right bundle-branch block no longer present Electronically Signed On 12-17-2017 15:23:37 CDT by Gordon Tobar [email or web address] <ELECTRONICALLY SIGNED> By: Gordon Tobar MD, [facility] 12/17/17 1523 190 190 Gordon Tobar MD, [facility] /EPI
[2017-12-18] VITALS (11 sets, daily range): BP systolic 83–104; BP diastolic 40–62
--- NOTE | 2017-12-18 05:50 | NUR ---
ASSUMED CARE AT 1940, ASSESSMENT CHARTED. PATIENT ALERT/ORIENTED X4, RESTING IN BED WITH AT BEDSIDE. UP WITH ASSIST/WALKER, WEAKNESS NOTED. DENIES PAIN OR NEEDS. PATIENT TURNED AND REPOSIITONED IN BED WITH PILLOWS Q2H. SCD'S INTACT. MEDS PER NOV. STATING THAT DAY RN DIDN'T CRUSH AM MEDS AND WONDERED IF PATIENT WAS ABLE TO SWALLOW WHOLE PILLS AGAIN THIS EVENING WITHOUT DIFFICULTY. HS MEDS PLACED IN APPLESAUCE WHOLE, PATIENT SWALLOWED WITHOUT DIFFICULTY BUT THEN BEGAN DRY HEAVING. STATING THAT PATIENT DOES THIS AT HOME WHEN HAVING A LUMP OF SOMETHING IN HIS PUREED FOOD. REQUESTING ICE CREAM TO "PUSH ALL HIS MEDICATIONS DOWN." PER ST RECOMMENTDATIONS, REQUESTING VIDEO SWALLOW IN AM. DR. PARKER NOTIFIED, ORDERS RECEIVED AND NOTED. NOTIFIED OF THIS. BED ALARM ON. CALL LIGHT WITHIN REACH, ENCOURAGED TO CALL FOR NEEDS.
--- NOTE | 2017-12-18 06:57 | NUR ---
HOURLY ROUNDING OBSERVED. REMAINS AT BEDSIDE. BED ALARM ON. WILL MONITOR.
--- NOTE | 2017-12-18 10:44 | NUR ---
ASSUMED PATIENT CARE THIS MORNING AT 7:15. RECEIVED REPORT FROM NURSE. PATIENT IS SLEEPING. VITALS SIGNS WITH IN NORMAL LIMIT. SINUS RYTHM ON THE MONITOR. OXYGEN SATURATION 99 ON NC 2 L. NO COMPLAIN OF PAIN AT THIS TIME. SWALLOWING EVALUATION SCHEDULED FOR 1:00 PM TODAY. PATIENT AT BEDSIDE. UPDATE GIVEN. PLAN TO GET PATIENT OOB TO CHAIR, PREVENT FALL, MAINTAIN STABLE HEART FUNCTIONING. WILL CONTINUE TO MONITOR.
--- NOTE | 2017-12-18 11:26 | CON ---
[address] [address] CONSULTATION Name: YAO LOYA Room: [place] [address] ADM IN M.R.#: [id number] Admission: 12/16/17 Attend Phys: Rosales Barrientos MD Discharge: Date of : 42 Report #: [id number] THIS REPORT FOR: //name// CC: Esteban Perrin MD LOCATED WITHIN [facility] Rosales Almaraz CARDIOLOGY CONSULTATION INDICATION: Atrial fibrillation. HISTORY OF PRESENT ILLNESS: The patient is a 77-year-old gentleman with a history of supraventricular tachycardia remotely status post ablation. More recently, he was seen in the hospital with acute renal failure. In that setting, he developed a large pericardial effusion. He ultimately was transferred to [facility] for possible pericardial window; however, at that hospital, he received a percutaneous placement of a drainage catheter. With that, he had complete resolution of his pleural effusion. Repeat echocardiogram today shows no recurrence of pleural effusion. His acute renal failure has resolved. He also had recent esophageal ulcers and dysphagia. He had ultimately a PEG tube placed and subsequent duodenal ulcer with significant bleed. In that setting, he received transfusions. The patient was recovering at first in long-term assisted care and more recently skilled. The patient was readmitted to the hospital when he was noted by home health to have a rapid irregular pulse. He was relatively asymptomatic with this. He is not having chest pain or shortness of breath. Initial EKG showed atrial fibrillation with a rapid ventricular response. Subsequently, on telemetry, he is noted to have intermittent episodes of sinus rhythm alternating with atrial fibrillation. He is not having any significant symptoms with this. PAST MEDICAL HISTORY: 1. Paroxysmal supraventricular tachycardia status post ablation. 2. Paroxysmal atrial fibrillation. 3. Pericardial effusion secondary to acute renal failure. 4. Esophageal ulcers as outlined above. 5. Recent duodenal bleed. 6. Recent episode of acute renal failure, resolved. 7. Type 2 diabetes mellitus. 8. Remote history of lymphoma. FAMILY HISTORY: Noncontributory. SOCIAL HISTORY: The patient is . He does not smoke. He does not drink alcohol. ALLERGIES: [place] [address] CONSULTATION Name: YAO LOYA Room: [address] IN [facility].#: [id number] Admission: 12/16/17 Attend Phys: Rosales Barrientos MD Discharge: Date of : 42 Report #: [id number] CURRENT MEDICATIONS: Insulin and Pepcid. REVIEW OF SYSTEMS: A 14-point review of systems is positive for dysphagia with 50-pound weight loss, generalized weakness without focal paralysis, cough that is nonproductive, recent pneumonia, palpitations, occasional chest discomfort, history of heart murmur, lower extremity edema, type 2 diabetes mellitus, vomiting, ulcers, anemia, history of non-Hodgkin's lymphoma, MEDICAL ALLERGIES OUTLINED ABOVE CONTRAST ALLERGY, arthritis without connective tissue disease. He wears reading glasses. He has decreased hearing and he wears dentures. Otherwise, 14-point review of systems is unremarkable. PHYSICAL EXAMINATION: VITAL SIGNS: Stable. Blood pressure 106/70, pulse is irregular and in the low 100s. GENERAL: This is a pleasant white male who is in no distress. Mood and affect appropriate. HEENT: Extraocular muscles intact. Mucous membranes are moist. NECK: Shows no jugular venous distention. I did not appreciate carotid bruit. CHEST: Reveals clear lung valdovinos. CARDIOVASCULAR: Reveals an irregularly irregular rhythm without obvious gallop or murmur. ABDOMEN: Reveals normal bowel sounds. The abdomen is soft and nontender. EXTREMITIES: Shows no edema. Peripheral pulses are 2+ and palpable. SKIN: Warm and dry. LABORATORY DATA: A 12-lead EKG on admission shows atrial fibrillation with a rapid ventricular response rate without significant ST or T-wave abnormality. Chest x-ray shows no acute cardiopulmonary abnormality. Labs are reviewed. Coags are within normal limits. Hemoglobin is 9.8. BUN 47, creatinine 1.5. EGFR 46. Thyroid function studies normal. IMPRESSION AND RECOMMENDATIONS: 1. Paroxysmal atrial fibrillation. At this point in time, I would like to start sotalol 80 mg twice daily in an effort to maintain sinus rhythm. No anticoagulation as he has had recent upper gastrointestinal bleeding. 2. Pericardial effusion, resolved. The effusion was secondary to acute renal failure, which has resolved. 3. Remote history of paroxysmal supraventricular tachycardia status post ablation without clinical recurrence. <ELECTRONICALLY SIGNED> By: Gordon Tobar MD, FACC 12/18/17 1126 1228 [id number] Tobar MD, FACC /nt
--- NOTE | 2017-12-18 12:30 | NUR ---
CONTINUE TO FOLLOW, MET WITH PT AND . ALSO SPOKE WITH SON/BELLA OVER THE PHONE IN ROOM. PT STATES HE DOES FEEL WEAK, VOICED CONCERN ABOUT CARING FOR HIM AT HOME AND THOUGHT THAT HE'D BE WILLING TO 'DO WHATEVER IS NEEDED' BE IT SNF OR HOME WITH HH AT [place]. STILL AWAITING THERAPY EVALS FROM PT/[facility] TODAY. STATES SHE FEELS SHE CAN MANAGE PT AT HOME. SON VOICED THAT THEY WERE OPEN TO OPTIONS. HE CONFIRMED THAT WAS AMBULATING AT SNF AT [facility] WITH A WALKER AND SOMEONE FOLLOWING WITH A W/C. PT AND STATE THAT PT HAS COME 'A LONG WAY AND IS A MIRACLE.' PT DID NOT THINK HE COULD TOLERATE 3HRS FOR THERAPY A DAY AND NOT INTERESTED IN INPT REHAB. WILL SEE PT/ AGAIN AFTER THERAPY SEES PT TODAY
--- NOTE | 2017-12-18 13:58 | NUR ---
I HAVE REVIEWED THE STUDENT'S CHARTING.
--- NOTE | 2017-12-18 14:16 | NUR ---
PEPCID WAS ORDERED FOR 11:00 AM. PT PREVIOUSLY RECEIVED PERCID THIS AM AT 09:00. DECIDED TO HOLD THE PEPCID SINCE PT WILL BE RECEIVING IT TONIGHT AT 2100. WAS MENTIONED TO DR PARKER. AWAITING FOR COMFIRMATION
--- NOTE | 2017-12-18 14:27 | NUR ---
EKG RESULT CAME BACK . RESULTS SLIGHTLY DEFER FROM PREVIOUS. PATIENT IS ASYMPTOMATIC. REMAIN SINUS RYTHM ON THE MONITOR. RESULT COMMUNICATED TO TRIAGE RN STEM SIZER. STEM SIZER REPORTS NO NEED TO WORRY.
--- NOTE | 2017-12-18 16:22 | EKG ---
[place] [address] ELECTROCARDIOGRAM REPORT Name: SHALINIYAONE Room: [place] [address] ADM IN M.R.#: [id number] Admission: 12/16/17 Attend Phys: Rosales Barrientos MD Discharge: Date of : 42 Report #: [id number] THIS REPORT FOR: //name// [facility] Test Date: 2017-12-18 Test Time: 09:55:10 Pat Name: YAO LOYA Department: Room: [place] [address] Gender: M Lead Mobile Developer: : 1940 Requested By: Gordon Tobar Order Number: [id number] Reading MD: Ricardo Momin Measurements Intervals [place] Rate: 79 P: -2 PA: 248 QRS: 34 QRSD: 110 T: 3 QT: 387 QTc: 444 Interpretive Statements Sinus rhythm Prolonged PA interval incomplete RBBB Minimal ST elevation, anterior leads Compared to ECG 12/16/2017 19:06:45 First degree AV block now present Electronically Signed On 12-18-2017 16:22:15 CDT by Ricardo Momin [email or web address] <ELECTRONICALLY SIGNED> By: Ricardo Momin MD, [facility] 12/18/17 1622 0955 [id number] Ricardo Momin MD, [facility] /EPI
--- NOTE | 2017-12-18 17:46 | NUR ---
PT WAS 99% ON ROOM AIR WITH 90 HR.
--- NOTE | 2017-12-18 18:22 | NUR ---
PATIENT SWALLOWING EVAL RESULT WAS NORMAL AND REVEALS OK SWALLOWING. HOWEVER PT COULD NOT CONSUME EVENING MEAL DUE TO REPEATING SMALL AMOUNT OF VOMITING. PATIENT STATES THAT HE IS CHOCKING, BUT LOOK LIKE VOMIT TO ME. ZOFRAN WAS ADMINISTERED, ICE CHIP PROVIDED AND MADE COMFORTABLE. WILL SEND A NOTE TO PRIMARY DR. AT THE BEDSIDE. NO COMPLAINT ABOUT PAIN.
--- NOTE | 2017-12-18 18:53 | NUR ---
CALL PLACED TO DR HUBER COVERING FOR DR VALERIO. NEW ORDER RECEIVE FOR GI CONSULT TOMORROW MORNING AND PROTONIX ONCE AT 1900. PATIENT MADE AWARE. ZOFRAN WAS ADMINISTERED FOR VOMITING. SCANT VOMIT OUTPUT HAS REDUCED BUT NOR CEASED. AT BEDSIDE. PATIENT MADE COMFORTABLE. ICE CHEAP PROVIDED.
[2017-12-19] VITALS (9 sets, daily range): BP systolic 73–109; BP diastolic 45–66
--- NOTE | 2017-12-19 | NUR ---
RECIEVED REPORT AND ASSUMED CARE OF PATIENT AT 1930. PROFESSOR OF COMMUNICATION IN PLACE TRACING SR W/ 1AVB. PATIENT ON ROOM AIR WITH SATS 98%. PATIENT A&OX4. DENIES PAIN AND DISCOMFORT. PATIENT WAS THROWING/SPITTING UP A MODERATE AMOUNT OF CLEAR/WHITE CONTENT. PATIENT DENIES NAUSEA AND STATES HE FEELS THOUGH "SOMETHING IS STUCK IN HIS THROAT." ONE TIME DOSE OF IV PROTONIX ADMINISTERED AND PATIENT SIPPING ON LEMON-ANVIK SODA. PATIENT STATES HE FEELS "BETTER NOW." NO FURTHER THROW UP/SPIT OBSERVED. CALL LIGHT WITHIN REACH. GOAL IS TO CONTINUE TO HAVE GASTROINTESTINAL RELIEF WITH NO FURTHER VOMITING. WILL CONTINUE TO MONITOR.
--- NOTE | 2017-12-19 04:40 | NUR ---
PATIENT PROGRESSING TOWARDS GOALS: PATIENT HAS HAD NO MORE EPISODES OF VOMITING AND IN FACT, WAS ABLE TO TOLERATE FOOD AND DRINKING AFTER ADMINISTRATION OF MEDICATIONS. PATIENT HAS BEEN RESTING WELL THIS SHIFT WITH NO C/O PAIN OR DISCOMFORT. NO INCONTINENT EPISODES OF BOWEL OR URINE. GOOD URINE OUTPUT PER THE URINAL. HOURLY ROUNDING OBSERVED. CALL LIGHT WITHIN REACH
--- NOTE | 2017-12-19 10:30 | NUR ---
ASSUMED CARE OF PT AT 0730. PT RESTING IN BED. AT BEDSIDE. PT A&0X4. PT DENIES ANY PAIN OR SHORTNESS OF BREATH AT THIS TIME. PT NPO FOR GI CONSULT AT THIS TIME. GI HERE TO SEE PT. ORDERS RECEIVED FOR EGD TODAY. CONSENT SIGNED AND PLACED IN FRONT OF CHART. PRE OP CHECKLIST COMPLETED. REFER TO CHARTING. PT TRACING SR ON THE MEDIA SUPERVISOR. PT ON SOTALOL. AM SOTALOL HELD PT BLOOD PRESSURE LOW, WILL ADMINISTER WHEN PT RETURNS FROM PROCEDURE. PT ON RA SAT 97%. DENIES ANY SHORTNESS OF BREATH. PT VOIDS PER URINAL. PT UP TO CHAIR THIS AM. PT AMBULATED IN HALLWAY WITH PHYSICAL THERAPY WITH WALKER AND GAIT BELT. TOLERATED WELL. PT DENIES ANY NAUSEA OR VOMITING. AM ASSESSMENT CHARTED. MEDICATIONS PER MAR. PT REPOSITIONED EVERY 2 HOURS FOR COMFORT. HOURLY ROUNDING OBSERVED. BED IN LOW POSITION. BED ALARM IN PLACE. FALL PRECAUTIONS IN PLACE. CALL LIGHT WITHIN REACH. WILL CONTINUE PLAN OF CARE.
--- NOTE | 2017-12-19 16:01 | EKG ---
[place] [address] ELECTROCARDIOGRAM REPORT Name: SHALINIYAO SELVIN Room: [place] [address] ADM IN M.R.#: [id number] Admission: 12/16/17 Attend Phys: Rosales Barrientos MD Discharge: Date of : 42 Report #: [id number] THIS REPORT FOR: //name// [facility] Test Date: 2017-12-19 Test Time: 08:21:50 Pat Name: YAO LOYA Department: Room: [place] [address] Gender: M Braille Coder: : 1940 Requested By: Gordon Tobar Order Number: [id number] Reading MD: Ricardo Momin Measurements Intervals [place] Rate: 74 P: -54 CO: 208 QRS: 60 QRSD: 111 T: 5 QT: 393 QTc: 436 Interpretive Statements Sinus or ectopic atrial rhythm Incomplete RBBB Compared to ECG 12/18/2017 09:55:10 Ectopic atrial rhythm now present First degree AV block no longer present Electronically Signed On 12-19-2017 16:01:13 CDT by Ricardo Momin [email or web address] <ELECTRONICALLY SIGNED> By: Ricardo Momin MD, [facility] 12/19/17 1601 0821 Ricardo Momin MD, [facility] /EPI
--- NOTE | 2017-12-19 18:26 | NUR ---
NO ACUTE CHANGES THROUGHOUT SHIFT. REFER TO CHARTING. PT HAD BARIUM SWALLOW THIS AFTERNOON AND WILL HAVE REPEAT EGD TOMORROW 12/20/17. PT IS ON CLEAR LIQUID DIET AT THIS TIME AND NPO AFTER MIDNIGHT. CALLED THIS EVENING AND UPDATED ON CURRENT CARE PLAN. DR LAMBERT NOTIFIED OF PT NPO STATUS-STRICT NO PILLS PER DR MICHELLE AND UNABLE TO RECEIVE SOTALOL. NO NEW ORDERS RECEIVED, WILL MONITOR HEART RATE AND RHYTHM AND AWAIT RESULTS OF EGD TOMORROW. PT BLOOD PRESSURE 70/40 THIS AFTERNOON WHILE SITTING ON BSC HAVING BOWEL MOVEMENT. PT ASYMPTOMATIC. PT RETURNED BACK TO BED AND BLOOD PRESSURE UP TO 101/63. REFER TO CHARTING. NEURO CONSULT IN PLACE. ORDERS RECEIVED FOR CT HEAD. PT CONTINUES TO TRACE SR ON THE FACTORY ENGINEER. ON RA SAT UPPER 90'S. DENIES ANY SHORTNESS OF BREATH OR PAIN. PT UP WITH 1 ASSIST WALKER AND GAIT BELT.
[2017-12-20] VITALS (7 sets, daily range): BP systolic 86–132; BP diastolic 53–81
[2017-12-20 05:21] LABS: CALCIUM 8.5 mg/dL (8.5-10.1); CREATININE 1.2 mg/dL (0.6-1.3); POTASSIUM 3.9 mmol/L (3.5-5.1)
--- NOTE | 2017-12-20 06:01 | NUR ---
END SHIFT: PT RESTED WELL. NO COMPLAINTS. 2 EPISODES OF LOOSE STOOLS- SMALL. NO C/O N/V. PT HAS REMAINED NPO SINCE MN AWAITING PROCEDURE. UPDATED OVER PHONE ON PT STATUS. SR WITH 1ST DEG AVB ON MONITOR. ASSESSMENT UNCHANGED. VSS. SAFETY PRECAUTIONS IN PLACE. CALL LIGHT IN REACH. WILL CONT TO MONITOR.
--- NOTE | 2017-12-20 10:14 | NUR ---
ASSUMED CARE OF PATIENT AFTER REPORT THIS MORNING. PATIENT AWAKE, ALERT, AND ORIENTED APPROPRIATELY. PHYSICAL ASSESSMENT COMPLETED AND CHARTED. NO COMPLAINTS OF PAIN THIS MORNING. NO MEDICATIONS GIVEN PATIENT IS NOT TO TAKE PILLS, ORDER WRITTEN BY DR. MICHELLE. NPO FOR EGD TODAY WELL. PATIENT UNDERSTANDS LIMITATIONS. VITAL SIGNS STABLE. OXYGEN SATURATION WITHIN NORMAL LIMITS ON ROOM AIR. PATIENT TRANSFERS AND AMBULATES WITH ASSISTANCE FROM STAFF. USES CALL LIGHT APPROPRIATELY. DENIES NEEDS AT THIS TIME. CALL LIGHT WITHIN REACH. NURSING WILL CONTINUE TO MONITOR.
--- NOTE | 2017-12-20 11:07 | NUR ---
PATIENT LEFT UNIT FOR EGD AT THIS TIME VIA WHEELCHAIR.
--- NOTE | 2017-12-20 15:15 | NUR ---
PATIENT RETURNED TO ROOM AT 1510. PATIENT AWAKE, ALERT, AND ORIENTED. VITAL SIGNS STABLE. OXYGEN SATURATION WITHIN NORMAL LIMITS ON ROOM AIR. DENIES NEEDS AT THIS TIME. CALL LIGHT WITHIN REACH. NURSING WILL CONTINUE TO MONITOR.
--- NOTE | 2017-12-20 15:55 | NUR ---
CONTINUE TO FOLLOW. MET WITH PT AND SPOKE WITH OVER THE PHONE. THEY ARE BOTH STILL INSISTENT THAT PT GO HOME WITH HH AND DECLINE SNF. WILL FOLLOW THEY WANT TO USE [employer] [facility] [phone] FAX [phone]
--- NOTE | 2017-12-20 17:03 | NUR ---
NO CHANGE IN PATIENT STATUS. REMAINS ALERT AND ORIENTED APPROPRIATELY. GIVEN SCHEDULED MEDICATIONS, SEE EMAR FOR DOCUMENTATION. VITAL SIGNS STABLE. OXYGEN SATURATION WITHIN NORMAL LIMITS ON ROOM AIR. PATIENT HAS USED CALL LIGHT APPROPRIATELY. SITTING IN CHAIR AT BEDSIDE AT THIS TIME. DENIES NEEDS. CALL LIGHT WITHIN REACH. NURSING WILL CONTINUE TO MONITOR.
[2017-12-21 04:09] VITALS: BP 107/66
--- NOTE | 2017-12-21 05:11 | NUR ---
END SHIFT: PT RESTED WELL. NO COMPLAINTS. NO PAIN. ABLE TO SWALLOW PILLS WELL WITH NO CHOKING. TOLERATING FULL LIQ DIET WITH NO PROBLEMS. ASSESSMENT UNCHANGED. VSS. SAFETY PRECAUTIONS IN PLACE, VSS. CALL LIGHT IN REACH. PERFORMED HOURLY ROUNDING. WILL CONT TO MONITOR.
[2017-12-21 07:48] VITALS: BP 109/63
[2017-12-21] MEDS ORDERED: SORINE 80 MG TA80 M1 PO (10:23)
[2017-12-21] MEDS ORDERED: ASPIRIN81 M2 PO (10:23)
[2017-12-21] MEDS ORDERED: NEXIUM40 MG PO (10:23)
[2017-12-21] MEDS ORDERED: CARAFATE 11 GM/10 M1 PO (10:23)
[2017-12-21] MEDS ORDERED: FLORINEF ACETA0.1 MG PO (10:27)
[2017-12-21 10:30] VITALS: BP 97/55
--- NOTE | 2017-12-21 10:43 | NUR ---
ORDERS NOTED FOR DC HOME WITH HH. MET WITH PT AND CALL PLACED TO /DURGA. SHE STATED SHE WILL NEED TO CALL HER SON TO COME PICK HIM UP. DISCUSSED WITH LAKHWINDER PAINTING. CALLED AND FAXED DC ORDERS TO [facility], HAD TO LEAVE MESSAGE. IS GETTING LIFT CHAIR DELIVERED TODAY
--- NOTE | 2017-12-21 10:53 | NUR ---
ASSUMED CARE OF PATIENT AFTER REPORT THIS MORNING. PATIENT AWAKE, ALERT, AND ORIENTED APPROPRIATELY. PHYSICAL ASSESSMENT COMPLETED AND CHARTED. NO COMPLAINTS OF PAIN. GIVEN SCHEDULED MEDICATIONS, SEE EMAR FOR DOCUMENTATION, SWALLOWED WITHOUT DIFFICULTY. VITAL SIGNS STABLE. OXYGEN SATURATION WITHIN NORMAL LIMITS ON ROOM AIR. PATIENT TRANSFERS AND AMBULATES WITH ASSISTANCE FROM STAFF. USES CALL LIGHT APPROPRIATELY. RECEIVED DISCHARGE ORDERS FROM MEDICAL PHYSICIAN. PATIENT AWARE. HOME HEALTH SET UP BY CM. DENIES NEEDS AT THIS TIME. CALL LIGHT WITHIN REACH. NURSING WILL CONTINUE TO MONITOR UNTIL DISCHARGE.
[2017-12-21 11:40] VITALS: BP 96/60
--- NOTE | 2017-12-21 15:35 | NUR ---
DISCHARGE PAPERWORK COMPLETED AND SIGNED BY ALL APPROPRIATE PARTIES, ON PATIENT'S CHART. PATIENT DISCHARGED AT 1530. IV DISCONTINUED. ESCORTED TO FRONT DOOR BY THIS NURSE.
--- NOTE | 2017-12-24 16:17 | S ---
[place] [address] SURGICAL PATH RPT PROCEDURE Name: FREDIS LOYA Room: [address] IN M.R.#: [id number] Admission: 12/16/17 Date of : 42 Discharge: 12/21/17 Report #: [id number] Path Case #: [id number] PATHOLOGY REPORT COLLECTION DATE: 12/20/2017 RECEIVED DATE: 12/23/2017 SUBMITTING PHYS: Dr. Rubio Garza OTHER PHYS: Dr. Rosales Almaraz SPECIMEN(S) RECEIVED: A.Duodenal biopsy * * * * * * * * * * * * FINAL DIAGNOSIS: Duodenal biopsy: - Normal duodenal mucosa. (ADONAY:carol ann; 12/24/2017) PATHOLOGIST: Miky Barboza M.D. REPORT ELECTRONICALLY SIGNED BY: Miky Barboza M.D. DATE/TIME: 12/24/2017 16:17 * * * * * * * * * * * * GROSS PATHOLOGY: Received in formalin labeled "Fredis Loyane, duodenal biopsy" and consists of 2 soft duke tissue fragments each averaging 0.3 cm. They are entirely submitted as A1. (CAROLIN; 12/23/2017) CLINICAL HISTORY: Rule out celiac sprue INITIAL CPT CODE(S): A; 79254 Professional services performed by [facility] at [facility], [address] [place], [place] [address], [place] [address]. Technical services performed by [facility] at [address] [place] [address], [facility] [address], [place] [address]. [facility] [address] [address] PHONE: [phone] [place] [address] SURGICAL PATH RPT PROCEDURE Name: FREDIS LOYA Room: [address] IN M.R.#: [id number] Admission: 12/16/17 Date of : 42 Discharge: 12/21/17 Report #: [id number] Path Case #: [id number] DIRECTOR: Miller Wallis M.D. * * * END OF REPORT * * *
--- NOTE | 2018-01-07 17:05 | CON ---
[address] [address] CONSULTATION Name: YAO LOYA Room: [address] IN M.R.#: [id number] Admission: 12/16/17 Attend Phys: Rosales Barrientos MD Discharge: 12/21/17 Date of : 42 Report #: [id number] THIS REPORT FOR: //name// CC: Rosales Almaraz DATE OF SERVICE: 12/19/2017 HISTORY OF PRESENT ILLNESS: This is a 77-year-old male patient who was evaluated by me on referral from to evaluate the patient for any neurological etiology for the patient's swallowing difficulty. The patient is somewhat of a poor historian. He indicates that he was sick, but does not know which hospital he was in. He has large records here and that was reviewed. He has swallowing difficulty and he is also having multiple GI problems. He also has a pretty significant cardiac problem. The patient also has a decreased appetite. He indicates his swallowing difficulty is moderately severe. He does not know anything which makes it better or worse. REVIEW OF SYSTEMS: Indicate that this patient has numerous problems. He has rhythm abnormalities of the heart. He was admitted with acute renal problems. He has a history of pleural effusion. He has a history of a duodenal ulcer. He had transfusions. He was noted to have irregular heart rate. He has atrial fibrillation, but also has a history of a GI bleed. His swelling appeared to be intermittent. He has a history of diabetes. He has a prior history of lymphoma as I understand. I carried out his 14-point review of system both from him and from the record and this was his relevant 14-point review of system. PAST MEDICAL HISTORY: Positive for numerous medical problems, but he does not describe any stroke in the past. FAMILY HISTORY: Negative for early age strokes. SOCIAL HISTORY: He says he does not smoke. PHYSICAL EXAMINATION: Indicate that he is alert. He is responsive. He can follow command. His memory is poor, but he states that is his baseline. His fund of knowledge is poor. His speech looks intact. His cranial nerve examination 2-12 looks mostly unremarkable. He is weak in all four extremities. His position sense is intact in the lower extremities. His reflexes could be elicited. His tone looks symmetrical. His [id number]-om-raxl looks unremarkable. He could not cooperate with the fundus examination. Cardiac examination shows irregularity. His pulses are difficult to feel. He does not have any edema, cyanosis or jaundice. There is no respiratory difficulty in this patient, but he does have a few rhonchi. His blood pressure is /53, respirations 16, pulse is 70, [place] 98[place] [address] CONSULTATION Name: YAO LOYA Room: [address] IN ..#: [id number] Admission: 12/16/17 Attend Phys: Rosales Barrientos MD Discharge: 12/21/17 Date of : 42 Report #: [id number] LABORATORY DATA: Last TSH was normal. Vitamin B12 was normal. I do not see any imaging study in the brain except 2012. IMPRESSION: I suspect the most likely etiology for the patient's symptoms is GI. He has esophageal stenosis, but this patient also has atrial fibrillation and he can have bilateral strokes and sometime dysphagia can also occur with vitamin B1 deficiency in a renal patient. RECOMMENDATIONS: 1. I will give him one dose of vitamin B1. 2. I will check a CT to make sure he does not have any central cause for dysphagia. 3. If that is negative, then I think we may need to just watch this patient. Thank you very much for allowing me to share in the management of this patient. <ELECTRONICALLY SIGNED> By: Nicolás Sampson MD 01/07/18 1705 1542 1936Nicolás Sampson MD /nt
--- NOTE | 2018-01-13 15:01 | CON ---
[address] [address] CONSULTATION Name: YAO LOYA Room: [address] IN M.R.#: [id number] Admission: 12/16/17 Attend Phys: Rosales Barrientos MD Discharge: 12/21/17 Date of : 42 Report #: [id number] THIS REPORT FOR: //name// CC: Rosales Barrientos Avelinacarmel Almaraz DATE OF SERVICE: 12/19/2017 ADDENDUM. I have personally seen and examined the patient and reviewed labs and imaging. I agree with the nurse practitioner, Felicity Hall's evaluation and plan. We will proceed with EGD to further evaluate his dysphagia and previous history of severe esophagitis and weight loss. We will make further recommendation once the endoscopic evaluation is complete. <ELECTRONICALLY SIGNED> By: Rubio Garza MD 01/13/18 1501 1300 [id number] Garza MD /nt
--- NOTE | 2018-01-13 15:01 | CON ---
[address] [address] CONSULTATION Name: YAO LOYA Room: [address] IN M.R.#: [id number] Admission: 12/16/17 Attend Phys: Rosales Barrientos MD Discharge: 12/21/17 Date of : 42 Report #: [id number] THIS REPORT FOR: //name// CC: Rosales Almaraz DO Avelina Almaraz DICTATED BY: Felicity Hall [facility] DATE OF SERVICE: 12/19/2017 PRIMARY CARE PHYSICIAN: Michael Almaraz D.O. Please note at the time of this dictation, the patient was seen and physically examined by myself. REASON FOR CONSULTATION: Dysphagia and vomiting. HISTORY OF PRESENT ILLNESS: This is a 77-year-old male who presented to the Emergency Room after being seen by his PCP after his physical therapist coming to his house and realizing he had a resting heart rate in the 120s. It was very irregular and he was feeling very weak and had a little chest heaviness on the day of admission. He does have a history of atrial fib from his past hospitalization, which was very prolonged between [facility] and [facility] and then to a rehab center and it has only been home for about 10 days from that. He states that he is still having some difficulty with swallowing and not eating very much. He has no appetite and when anything does go down, he starts to vomit. He has lost over 50 pounds since all of this started in August of 2017. The patient had a very long and complicated case, course of hospitalization in which he was eventually transferred to [facility] due to his extensive history and that he needed to have a pericardial drain and that was unable to do that here; therefore, that is why he was transferred over to [facility]. At that time after he had already been here approximately 2 weeks. During his hospitalization at [facility], he had a Dobbhoff placed and began having issues. He underwent an EGD on October 04 that showed extensive ulcerations and severe esophagitis. Biopsies were all negative for CMV and HSV at that time. He subsequently then on the 08 of October was having significant melanotic stools and a significant drop in his hemoglobin. Repeat EGD was done that showed a large duodenal ulcer that they were unable to treat endoscopically. He then underwent IR intervention in which he had four coils placed to stop the bleeding to the branches of the GDA twice with 4 stents that were placed. He received 5 units of blood during this time. The patient was then discharged to a long-term care facility for rehabilitation and he has been home from that for about one week. He continues to have no appetite, still has no. He states when he does vomit, the food barely gets down and then it is back up again. He states his bowels are moving. They are somewhat [place] [address] CONSULTATION Name: YAO LOYA Room: [address] IN .[place].#: [id number] Admission: 12/16/17 Attend Phys: Rosales Barrientos MD Discharge: 12/21/17 Date of : 42 Report #: [id number] are normal color once or twice a day. The patient did have a colonoscopy with us back in 2014 that was completely normal and he had some external hemorrhoids. ALLERGIES: Include CONTRAST DYE and METOPROLOL. MEDICATIONS: From home include aspirin, metformin, Tylenol, Ultram, insulin, cranberry, calcium with vitamin D, garlic oil, multivitamin, Saw [place] capsule, Lanoxin, flaxseed and he has been on famotidine 20 mg b.i.d. PAST MEDICAL HISTORY: Hypertension, noninsulin-dependent diabetic, history of AFib and history of non-Hodgkin's lymphoma just back in 2014. PAST SURGICAL HISTORY: He has had back surgery, prostate surgery, carpal tunnel, umbilical hernia repair, tonsil and adenoidectomy. He has had a partial gastrectomy due to just cataracts. He has had a hard ablation and recent EGD for GI bleed. FAMILY HISTORY: Noncontributory. SOCIAL HISTORY: He lives at home with his . Denies any alcohol, tobacco or illegal drug use. REVIEW OF SYSTEMS: Twelve-point review of systems is essentially negative except what is mentioned in the HPI. PHYSICAL EXAMINATION: VITAL SIGNS: Temperature 36.8, pulse 72, respirations 15 and blood pressure 85/50. HEART: Regular rate and rhythm. LUNGS: Clear but diminished. ABDOMEN: Soft. Positive bowel sounds in all 4 quadrants with no masses or tenderness noted. LABORATORY DATA: Hemoglobin is 9.8 and when he was discharged in September, he was 7.6; hematocrit is 29; white count is 10.6 and platelets 344. Sodium 140, potassium 4.5, chloride 106, CO2 25, BUN is 4, creatinine is 1.2, GFR is 59 and glucose is 121. Total bilirubin is 0.2, alkaline phosphatase 146 and ALT 24. BUN is 16. RADIOLOGICAL DATA: The patient did undergo a video swallow, which was completely normal. IMPRESSION: 1. Dysphagia. 2. Vomiting. 3. Weight loss of [address] [address] CONSULTATION Name: YAO LOYA Room: [address] IN .R.#: [id number] Admission: 12/16/17 Attend Phys: Rosales Barrientos MD Discharge: 12/21/17 Date of : 42 Report #: [id number] 4. Loss of appetite. 5. History of duodenal ulcer, requiring coil embolization in September. 6. History of just a non-Hodgkin's lymphoma. 7. History of atrial fibrillation. PLAN: 1. EGD today with Dr. Garza. 2. Consider medication to help stimulate his appetite. 3. Further recommendations to be made once the procedure has been performed. Thank you for allowing us to participate in this patient's care. Please do not hesitate to call with any questions in regard to this consult. <ELECTRONICALLY SIGNED> By: Rubio Garza MD 01/13/18 1501 1009 [id number] Garza MD /nt
== END 2017-12-21 15:28 | disposition home health service (06) | DRG 682 ==
LOC: M.ERS 18:59 → M.2W 20:21 → M.TBA-ER 20:21 → M.2W 20:57
PROVIDERS: Family Medicine; ADMIT Internal Medicine
PROC: 0DB98ZX Excision of Duodenum, Via Natural or Artificial Opening Endoscopic, Diagnostic (ICD-10-PCS; principal; 2017-12-20)
PROC: 0D758ZZ Dilation of Esophagus, Via Natural or Artificial Opening Endoscopic (ICD-10-PCS; principal; 2017-12-20)
DX: N17.0 Acute kidney failure with tubular necrosis (principal); L89.93 Pressure ulcer of unspecified site, stage 3; I31.3 Pericardial effusion (noninflammatory); E51.9 Thiamine deficiency, unspecified; C85.90 Non-Hodgkin lymphoma, unspecified, unspecified site; K22.2 Esophageal obstruction; K29.70 Gastritis, unspecified, without bleeding; R00.0 Tachycardia, unspecified; I48.0 Paroxysmal atrial fibrillation; E11.22 Type 2 diabetes mellitus with diabetic chronic kidney disease; R13.10 Dysphagia, unspecified; E86.9 Volume depletion, unspecified; N18.2 Chronic kidney disease, stage 2 (mild); I12.9 Hypertensive chronic kidney disease with stage 1 through stage 4 chronic kidney disease, or unspecified chronic kidney disease; I95.1 Orthostatic hypotension; F01.50 Vascular dementia, unspecified severity, without behavioral disturbance, psychotic disturbance, mood disturbance, and anxiety; Z88.8 Allergy status to other drugs, medicaments and biological substances; Z79.82 Long term (current) use of aspirin; Z91.041 Radiographic dye allergy status; Z90.3 Acquired absence of stomach [part of]; Z98.49 Cataract extraction status, unspecified eye; Z79.4 Long term (current) use of insulin

== ENCOUNTER → 2018-02-10 | Outpatient (CLI) | payer MEDICARE, BC ==
[~2018-02-10] MED LIST changes: +AMOX TR-K CLV1 EAC3 PO; +ANTIVERT25 MG PO; +ASPIR 8181 MG PO; +ASPIRIN81 M2 PO; +CARAFATE 1 GM TA1 G1 PO; +CARAFATE 11 GM/10 M1 PO; +FLORINEF ACETA0.1 MG PO; +KENWOOD THERAP240 ML PO; +LASIX 80 MG TAB80 MG PO; +LEVEMIR SUBQ; +MIDODRINE HCL 55 M1 PO; +MIDODRINE HCL2.5 M1 PO; +NEXIUM40 MG PO; +NOVOLOG100 UNIT/1; +PEPCID20 MG PO; +SORINE 80 MG TA80 M1 PO
[2018-02-10 12:50] LABS: ABSOLUTE BASOPHILS 0.1 thou/uL (0.0-0.2); ABSOLUTE EOSINOPHILS 0.1 thou/uL (0.0-0.7); ABSOLUTE LYMPHOCYTES 1.4 thou/uL (0.8-5.3); ABSOLUTE MONOCYTES 1.2 thou/uL (0.0-1.2); ABSOLUTE NEUTROPHILS 6.9 thou/uL (1.6-8.1); BASOPHILS 0.8 %; EOSINOPHILS 0.8 %; HEMATOCRIT 28.9 % (42.0-52.0); HEMOGLOBIN 9.5 gm/dL (14.0-18.0); LYMPHOCYTES 14.8 %; MCH 26.3 pg (26.0-34.0); MCV 79.7 fL (80.0-100.0); MONOCYTES 12.1 %; MPV 7.5 fl. (7.2-11.1); NUCLEATED RBCS 0 /100WBC; PLATELET COUNT* 283 thou/uL (150-400); POLYS 71.5 %; RBC 3.63 mil/uL (4.50-6.00); RDW-CV 14.4 % (10.5-14.5); WBC 9.7 thou/uL (4.0-11.0)
[2018-02-10 13:03] LABS: ALBUMIN 3.1 g/dL (3.4-5.0); ALKALINE PHOSPHATASE 121 U/L (46-116); ANION GAP 10 mmol/L (7-16); BUN 28 mg/dL (7-18); CALCIUM 8.9 mg/dL (8.5-10.1); CHLORIDE 102 mmol/L (98-107); CHOLESTEROL 158 mg/dL (<200); CO2 27 mmol/L (21-32); CREATININE 1.2 mg/dL (0.6-1.3); GLUCOSE 111 mg/dL (70-99); HDL CHOLESTEROL 38 mg/dL (>40); LDL CHOLESTEROL 101 mg/dL (<100); POTASSIUM 4.3 mmol/L (3.5-5.1); SGOT 16 U/L (15-37); SGPT 15 U/L (30-65); SODIUM 139 mmol/L (136-145); TC:HDL 4.2 Ratio (Not establshd); TOTAL BILIRUBIN 0.5 mg/dL (<0.1-1.0); TRIGLYCERIDE 98 mg/dL (<150); VLDL 20 mg/dL (<40)
[2018-02-10 13:04] LABS: SERUM ASSESSMENT Clear
[2018-02-11 04:06] LABS: GLYCOHEMOGLOBIN (HGB A1C) 6.5 % (4.8-5.6)
== END ==
LOC: M.LAB 11:32
PROVIDERS: Nurse Practitioner Family
DX: I10 Essential (primary) hypertension (principal); E11.49 Type 2 diabetes mellitus with other diabetic neurological complication; K22.11 Ulcer of esophagus with bleeding; I48.91 Unspecified atrial fibrillation; N40.1 Benign prostatic hyperplasia with lower urinary tract symptoms; D50.8 Other iron deficiency anemias; Z87.448 Personal history of other diseases of urinary system; Z86.19 Personal history of other infectious and parasitic diseases

== ENCOUNTER 2018-03-20 13:58 | Inpatient (IN) | payer MEDICARE, BC ==
[~2018-03-20] VITALS: Ht 185.4 cm; Wt 99.3 kg
[~2018-03-20 13:58] MED LIST changes: -AMOX TR-K CLV1 EAC3 PO; -ANTIVERT25 MG PO; -ASPIR 8181 MG PO; -CARAFATE 1 GM TA1 G1 PO; -KENWOOD THERAP240 ML PO; -LASIX 80 MG TAB80 MG PO; -MIDODRINE HCL 55 M1 PO; -MIDODRINE HCL2.5 M1 PO
[2018-03-20] MEDS ORDERED: CARAFATE 1 GM TA1 G1 PO (14:09)
[2018-03-20 14:40] LABS: ABSOLUTE LYMPHOCYTES 1.2 thou/uL (0.8-5.3); ABSOLUTE MONOCYTES 1.3 thou/uL (0.0-1.2); ABSOLUTE NEUTROPHILS 7.6 thou/uL (1.6-8.1); BASOPHILS 0.4 %; EOSINOPHILS 0.4 %; HEMATOCRIT 27.2 % (42.0-52.0); HEMOGLOBIN 8.8 gm/dL (14.0-18.0); LYMPHOCYTES 11.6 %; MCHC 32.1 g/dL (28.0-37.0); MCV 77.9 fL (80.0-100.0); MONOCYTES 12.7 %; MPV 8.4 fl. (7.2-11.1); NUCLEATED RBCS 0 /100WBC; PLATELET COUNT* 227 thou/uL (150-400); POLYS 74.9 %; RDW-CV 15.2 % (10.5-14.5); WBC 10.1 thou/uL (4.0-11.0)
[2018-03-20 14:44] LABS: ANION GAP 7 mmol/L (7-16); BUN 29 mg/dL (7-18); CALCIUM 8.8 mg/dL (8.5-10.1); CHLORIDE 102 mmol/L (98-107); CO2 28 mmol/L (21-32); CREATININE 1.1 mg/dL (0.6-1.3); GLUCOSE 113 mg/dL (70-99); POTASSIUM 4.3 mmol/L (3.5-5.1); SODIUM 137 mmol/L (136-145)
[2018-03-20 14:50] LABS: APTT 27.7 Seconds (25.0-31.3); INR 1.2; PROTIME 11.9 Seconds (9.20-11.50)
[2018-03-20 14:54] LABS: ALBUMIN 3.1 g/dL (3.4-5.0); ALKALINE PHOSPHATASE 118 U/L (46-116); LIPASE 181 U/L (73-393); MAGNESIUM 1.9 mg/dL (1.8-2.4); NT-PRO BRAIN NAT PEPTIDE 4292 pg/mL (<300); SGOT 15 U/L (15-37); SGPT 15 U/L (30-65); TOTAL BILIRUBIN 0.5 mg/dL (<0.1-1.0); TOTAL PROTEIN 7.5 g/dL (6.4-8.2); TROPONIN-I LEVEL <0.06 ng/mL (<0.06)
[2018-03-20 16:22] VITALS: BP 152/76
[2018-03-20 16:45] VITALS: BP 167/75
[2018-03-20] MEDS ORDERED: MIDODRINE HCL2.5 M1 PO (17:59)
[2018-03-20] MEDS ORDERED: FLORINEF ACETA0.1 MG PO (18:05)
[2018-03-20 18:30] VITALS: BP 154/73
--- NOTE | 2018-03-20 18:56 | NUR ---
ASSUMED CARES OF PT AT 1625 FROM E.D. VIA BED. PT TRANSFERRED WITH MINIMAL ASSIST AMBULATORY, SLUGGISH, SLOW LEG MOVEMENTS. LEGS BILATERALLY EDEMA +1. PT A&O X4, OCC. FORGETFUL, HR BRADYCARDIC, AFLUTTER/AFIB ON MONITOR. BEDREST AT THIS TIME. IV IN RIGHT AC 20 GAUGE PATENT TO FLUSH AND MEDS. SECOND IV TO BE PLACED. VSS ON 2L O2 NC, AFEBRILE, CHRONIC LOWER PAIN IN LUMBAR AND SHOULDERS BILATERALLY. INSULIN DEPENDENT DIABETIC, ADMIT BG 108. PUREED/1800 CARB CONTROL DIET ORDERED R/T DIFFICULTY WITH SWALLOWING, ESOPHOGUS STRETCHED REGULARLY, TIGHTENS R/T TREATMENT IN HIS 30'S FOR NON-HODKINS LYMPHOMA. CARDIOLOGY CONSULTED, STRESS TEST AND ECHO ORDERED. PT CALM, RESPONSIVE, COOPERATIVE, TAKOTNA. PT PRESENTLY IN BED, BED IN LOW LOCKED POSITION WITH CALL BUTTON AND PERSONAL ITEMS IN PT REACH. PT WATCHING TV. HR INCREASED AFTER MIDODRINE PO 2.5 MG TO 60'S AND LOW 70'S. URINAL GIVEN TO PT. ADMISSION COMPLETED. SPOUSE AND SON HELPED WITH ADMISSION QUESTIONS. PT HAS FALLEN IN LAST THREE MONTHS, NO INJURY'S. REPORT TO NEWSPAPER PHOTOJOURNALIST FOR CONTINUED CARES. PT STABLE AT A&OX4 AT SHIFT CHANGE. LUNG SOUNDS DIMINISHED, SHALLOW RESPIRATIONS, ABD Q4 QUADRANTS HYPOACTIVE, SOFT, NON TENDER TO PALPATATION.
[2018-03-20 20:00] VITALS: BP 147/74
[2018-03-20 22:00] VITALS: BP 147/74
[2018-03-21] VITALS (11 sets, daily range): BP systolic 124–171; BP diastolic 44–97
--- NOTE | 2018-03-21 06:19 | NUR ---
PATIENT PROGRESSING TOWARDS GOALS. ORIENT X4 AFEBRILE. IRR. RHYTHM TO BRADYCARDIA. PT HR WENT DOWN TO 33 BUT NOT SUSTAINED. PT ASYMPTOMATIC. URINE OUPUT ADEQUATE. RR, O2 SAT WNL. ON 2L NC. HE WAS ABLE TO SLEEP THROUGHOUT. SPOKE WITH HIS LAST NIGHT UPDATED ON CURRENT CARE OF PLAN, VOICED UNDERSTANDING. PT HAS SCHEDUALED ECHO AND STRESS TEST THIS A.M. DENIES PAIN, N &V. CALL LIGHT WITHIN REACH. BED TO LOWEST POSITION. WILL CONTINUE TO MONITOR CLOSELY
--- NOTE | 2018-03-21 08:15 | NUR ---
4374 ASSUMED CARE OF PATIENT. PLEASE SEE DOCUMENTED ASSESSMENT. UP TO AUDREY. NPO FOR NUCLEAR STRESS TEST. DR HANKINS TO SEE PATIENT
--- NOTE | 2018-03-21 09:04 | NUR ---
PATIENT WILL NOT HAVE STRESS TEST UNTIL 1500. SERVED BREAKFAST (NO CAFFEINE). PT HAS DIFFICULTY WITH SWALLOW.UP IN CHAIR AND PRECAUTIONS OBSERVED
--- NOTE | 2018-03-21 10:11 | NUR ---
PATIENT SHORT OF AIR WHEN GETTING BACK TO BED. OXYGEN REPLACED AT 2LPM. PT IS NOW TELEMETRY STATUS
--- NOTE | 2018-03-21 10:26 | NUR ---
CALLED [facility] REGARDING PT C/O CHEST HEAVINESS. UNABLE TO RATE PAIN. ORDERS NOTED.
--- NOTE | 2018-03-21 10:39 | NUR ---
ICU Rounds: Pt is A&O. Resides at home with his . Pt known to this CM from previous hospital stay. Pt uses a walker for mobility and has a hospital bed. No home o2. Pt currently receiving outpt PT at a facility in [place], [place]. Hx of HH, but does not recall the name of the agency, HH ended in January. Hx of [facility]. Pt to transfer to tele today, room 202. Pt to have a nuclear stress test today at 3pm. Supportive family that is involvd in POC. Pt's goal is to return home, plans to resume outpt therapy. Following.
--- NOTE | 2018-03-21 10:45 | EKG ---
[place] [address] ELECTROCARDIOGRAM REPORT Name: NICK LOYAFRANKLYN Love Room: [address] IN [facility].#: [id number] Admission: 03/20/18 Attend Phys: Marlene Baldwin Discharge: Date of : 42 Report #: [id number] THIS REPORT FOR: //name// [facility] ED Test Date: 2018-03-20 Test Time: 14:07:04 Pat Name: YAO LOYA Department: Room: Gender: First Assist: : 1940 Requested By: Carlos May Order Number: [id number] MD: Esteban Perrin Measurements Intervals [place] Rate: 45 P: AL: QRS: 84 QRSD: 107 T: 28 QT: 496 QTc: 430 Interpretive Statements Atrial flutter incomplete RBBB Borderline right axis deviation Low voltage, precordial leads Compared to ECG 12/19/2017 08:21:50 Low QRS voltage now present atrial flutter now noted Electronically Signed On 03-21-2018 10:44:54 CDT by Esteban Perrin [email or web address] <ELECTRONICALLY SIGNED> By: Esteban Perrin MD, [facility] 03/21/18 1044 1407 1407 Esteban Perrin MD, [facility] /EPI
--- NOTE | 2018-03-21 11:04 | NUR ---
PT TO MOVE TO ROOM 202. PATIENT AND SPOUSE INFORMED OF NEW ROOM. SBAR FAAXED TO TELEMETRY
--- NOTE | 2018-03-21 11:40 | NUR ---
PT ARRIVED TO THE UNIT FROM ICU AT 11:40. REPORT TAKEN FROM TERENCE. AGREE WITH HER ASSESSMENT. PT IS A&O WITH NO C/O PAIN. HE IS ON CARDIAC MONITER TRACING AFLUTTER [place] HR 58. PT IS NPO FOR A STRESS TEST. HE IS ON FALL PRECAUTIONS PER FACILITY PROTOCOL. HE IS ON 2L OF 02. BED IS IN LOW POSTION CALL LIGHT IS IN REACH. WM.
--- NOTE | 2018-03-21 12:31 | NUR ---
1200 TO ROOM 202 PER WHEELCHAIR WITH ALL RECORDS AND BELONGINGS. REPORT TO LAKHWINDER HALL
--- NOTE | 2018-03-21 17:30 | CARDNUC ---
[place] [address] CARDIAC NUCLEAR IMAGING REPORT Name: YAO LOYA Room: [address] IN [facility]#: [id number] Admission: 03/20/18 Attend Phys: Mohsen Mejia Discharge: Date of : 42 Date of Service: 03/21/18 1730 Report #: [id number] THIS REPORT FOR: //name// APPROVED REPORT Study performed: 03/20/2018 15:37:00 Indication: chest pain Patient Location: In-Patient Room #: 202 Stress Tech: Hoa Bustamante Stress Nurse: Maria Elena Funez RN Ht: 6 ft 1 in Wt: 225 lbs BSA: 2.26 m2 BMI: 29.68 Medical History Medical History: hypertension Allergies: metoprolol, iodine Cardiac Risk Factors: age, hypertension, family hx Exercise History: Sedentary Resting Data Rest SPECT myocardial perfusion imaging was performed in supine position 30 minutes following the intravenous injection of 10.8 mCi of Tc-99m Sestamibi. Time of rest injection: 14:00 The images were gated to evaluate regional wall motion and calculate left ventricular ejection fraction. Administration Route: IV Administration Site: Right AC Pharmacologic Stress Pharmacologic stress test was performed by injecting Regadenoson 0.4 mg IV push over 10-15 seconds immediately followed by the intravenous injection of 35.6 mCi of Tc-99m Sestamibi. Time of stress injection: 15:30 Administration Route: IV Administration Site: Right AC Heart Rate at time of stress injection: 72 bpm. Gated Stress SPECT was performed 40 minutes after stress injection. The images were gated to evaluate regional wall motion and calculate left [place] [address] CARDIAC NUCLEAR IMAGING REPORT Name: SHALINIBHAKTIDebby Love Room: [address]#: [id number] Admission: 03/20/18 Attend Phys: Mohsen Mejia Discharge: Date of : 42 Date of Service: 03/21/18 1730 Report #: [id number] Stress Test Details Stress Test: Pharmacologic stress testing performed using 0.4 mg of regadenoson per 5 mL given IV over 10 seconds. Reason for pharmacologic stress test: physical limitation. HR Resting HR: 45 bpm Max Heart Rate (APMHR): 144 bpm Max HR Achieved: 72 bpm Target HR (85% APMHR): 122 bpm % of APMHR: 50 Recovery HR: 73 bpm BP Resting BP: 138/78 mmHg Max BP: 133/57 mmHg ECG Resting ECG: Atrial Flutter Stress ECG: Atrial Flutter ST Change: None Arrhythmia: None Recovery ECG: Atrial Flutter Recovery ST Change: None Recovery Arrhythmia: None Clinical Reason for Termination: Completed protocol Exercise duration: 0 min sec Exercise capacity: 1 METs The patient had no significant symptoms with Lexiscan infusion. Stress ECG Conclusion The baseline 12-lead elect cardiogram shows atrial flutter without significant ST segment abnormality. Obtained during and post Lexiscan infusion show atrial flutterhistory or T wave changes when compared to baseline. There were no other stress-induced arrhythmias. Study Quality Study: Good Artifact: No artifact Study Data At rest, the left ventricular ejection fraction was 70%.. Post stress, the left ventricular ejection was 75%.. TID = 0.82[place] [address] CARDIAC NUCLEAR IMAGING REPORT Name: YAO LOYA Ivan Room: [address] IN [facility]#: [id number] Admission: 03/20/18 Attend Phys: Mohsen Mejia Discharge: Date of : 42 Date of Service: 03/21/18 1730 Report #: [id number] Perfusion Myocardial perfusion images show uniform uptake of the radioisotope throughout the myocardium both at rest and stress. Wall Motion Global LV systolic function is well-preserved. There is a septal wall motion abnormality of uncertain significance noted. Nuclear Conclusion ECG Findings: negative for ischemia Clinical Findings: negative for ischemia Nuclear Findings: negative for ischemia Exercise Capacity: not assessed Left Ventricular Function: normal Risk Study: low Myocardial perfusion images show no defect to suggest infarct or ischemia. Left particular systolic function is preserved. This is a low risk study. <Conclusion> The baseline 12-lead elect cardiogram shows atrial flutter without significant ST segment abnormality. Obtained during and post Lexiscan infusion show atrial flutterhistory or T wave changes when compared to baseline. There were no other stress-induced arrhythmias. <ELECTRONICALLY SIGNED> By: Gordon Tobar MD, FACC 03/21/18 1730 29 173 Gordon Tobar MD, FACC /INF
[2018-03-22] VITALS: BP 152/68
[2018-03-22 04:00] VITALS: BP 137/73
--- NOTE | 2018-03-22 06:52 | NUR ---
ASSUMED CARE OF PATIENT AT 1900 THE PATIENT REMAINS AFIB AFLUTTER ON THE MONITOR O2 SAT MAINTAINED ON 2 L O2 NC CONTINUES TO BE UP WITH ASSIST ROUTINE REGIMEN CONTINUES TO BE EFFECTIVE FOR SX MANAGEMENT THE PATIENT IS PROGRESSING TOWARDS GOALS SPOKE WITH SPOUSE ON PHONE THIS SHIFT DENIED QUESTIONS OR CONCERNS WAS JUST CALLING TO "CHECK UP ON HIM" SAFETY INTERVENTIONS CONTINUE BED LOWERED WHEELS LOCKED CALL LIGHT IN REACH SIDE RAILS UP REPORT TO BE GIVEN TO ONCOMING RN
[2018-03-22 07:58] VITALS: BP 131/64
--- NOTE | 2018-03-22 09:30 | NUR ---
ASSUMED CARE OF PT THIS AM AROUND 07- CIVILIAN JAIL OFFICER IN PLACE ORDERED, TRACING [place]/AFIB/FLUTTER- UPON ASSESSMENT PT NOTED TO BE RESTING IN BED, WATCHING TV- PT A&O X4- CONTINENT OF BOWEL AND BLADDER, USING URINAL- ASSIST X1 WITH TRANSFERS- DIMINISHED LUNG SOUNDS NOTED, RESP EVEN AND UN-LABORED- VSS, O2 SAT 97% ON 2L VIA NC- PUREE DIET IN PLACE ORDERED, GOOD PO INTAKE NOTED- ABDOMEN SOFT/ROUND/NON-TENDER, BS X 4 QUADS- LAST BM REPORTED 03/21/18- BS ACHS- 2+ BLE NOTED, LEG ELEVATION IN PLACE-LASIX PRESCIBED WITH GOOD OUTPUT NOTED- PT DENIES ANY C/O PAIN/DISCOMFORT AT THIS TIME- CALL LIGHT AND PERSONAL BELONGINGS WITH IN REACH- HOURLY ROUNDS IN PLACE R/T SAFETY/NEEDS- ALL NEEDS MET AT THIS TIME-WCTM
[2018-03-22 11:33] VITALS: BP 114/66
[2018-03-22 12:30] LABS: CALCIUM 8.8 mg/dL (8.5-10.1); CREATININE 1.3 mg/dL (0.6-1.3); POTASSIUM 3.7 mmol/L (3.5-5.1)
[2018-03-22 15:38] VITALS: BP 104/53
--- NOTE | 2018-03-22 16:22 | NUR ---
PT CURRENLTY RESTING IN BEDN SIDE RECLINER, WATCHING TV- DYE PADDER OPERATOR IN PLACE ORDERED, TRACING A-FIB- 1X ORDER FOR FLLECAINIDE 300MG GIVEN THIS SHIFT PRESCIBED PER CARDIOLOGY- PT UP IN CHAIR MOST SHIFT, TOLERATING WELL- GOOD PO INTAKE NOTED WITH MEALS THIS SHIFT- BS MONITORED PRESCIBED-IV TO RIGHT AC INTACT AND SL, IV LASIX PRESCIBED- DENIES ANY C/O PAIN/DISCOMFORT AT THIS TIME- CALL LIGHT AND PERSONAL BELONGINGS WITH IN REACH- ALL NEEDS MET AT THIS TIME-WCTM
[2018-03-22 20:00] VITALS: BP 138/60
[2018-03-23] VITALS: BP 144/68
[2018-03-23 04:00] VITALS: BP 115/59
--- NOTE | 2018-03-23 05:23 | NUR ---
PATIENT PROGRESSING TOWARDS GOALS: PATIENT REMAINS IN SR/SA ON HOTEL OPERATION MANAGER. PATIENT WEANED OFF O2 AT BEGINNING OF SHIFT AND O2 SATS HAVE MAINTAINED >92% ON ROOM AIR. PATIENT DENIES PAIN, DISCOMFORT, NAUSEA, AND SHORTNESS OF AIR THROUGHOUT SHIFT. VSS. HOURLY ROUNDING OBSERVED. CALL LIGHT WITHIN REACH
[2018-03-23 07:41] VITALS: BP 129/62
--- NOTE | 2018-03-23 08:19 | NUR ---
ASSEMED CARE OF PT THIS AM AROUND 0715- GRAVURE PRINTING MACHINIST IN PLACE ORDERED, TRACING SR WITH 1ST DEGREE AND BBB- UPON ASSESSMENT PT NOTED TO BE RESTING IN BED, WACHING TV- PT A&O X4- CONTINET VS INCONTINET WITH OCCASSIONAL STRESS INCONTINENTS NOTED- LCTA, DIMINSHED IN BASES- RESP EVEN AND UN-LABORED- VSS, O2 SAT 945 ON RA- ABDOMEN SOFT/ROUND/NON-TENDER, BS X4 QUADS- LAST BM REPORTED 03/21/18- 2-3+ BLE EDEMA NOTED, LEG ELEVATION IN PLACE INDICATED- SCD'S IN PLACE INDICATED- IV NOTED TO LET FA INTACT AND SL- PUREE DIET IN PLACE PRESCIBED, GOOD PO INTAKE NOTED, BS MONITORED ORDERED- PT DENIES ANY C/O PAIN/DISCOMFORT AT THIS TIME-CALL LIGHT AND PERSONAL BELONGINGS WITH IN REACH- HOURLY ROUNDS IN PLACE R/T SAFETY/NEEDS- ALL NEEDS MET AT THIS TIME-WCTM
[2018-03-23 11:10] VITALS: BP 135/56
[2018-03-23] MEDS ORDERED: LASIX 80 MG TAB80 MG PO (13:10)
[2018-03-23 13:31] LABS: CALCIUM 9.2 mg/dL (8.5-10.1); CREATININE 1.3 mg/dL (0.6-1.3); MAGNESIUM 1.8 mg/dL (1.8-2.4); POTASSIUM 3.6 mmol/L (3.5-5.1)
--- NOTE | 2018-03-23 15:39 | NUR ---
ORDERS RECIEVED FOR OKAY TO D/C TO HOME THIS SHIFT PER POST BMP LAB DRAW- IV TO LEFT FA D/C'D ALONG WITH VEGETABLE THINNER PRIOR TO D/C- D/C TEACHING/EDUCATION GIVEN TO PT AND SON AT TIME OF D/C WITH ALL QUESTIONS AND CONCERNS ADDRESSED PRIOR TO D/C- WRITTEN EDUCATION PROVIDED TO PT AT TIME OF D/C- CONFIRMATION MADE WITH THIS SHIFT, THAT PT IS NOT TO BE D/C'D ON BETA DEREK R/T NO BE ABLE TO TOLERATE- ALL CONTACTED IN [facility] TO F/U NEEDED IN 1 WEEK- STATES THAT HE HAS NOTIFIED CARDIOLOGY NURSE AND THEY WILL CALL PT LIKELY SATURDAY TO GIVE F/U APPOINTMENT WITH [facility] IN 1 WEEKS AND PHYSICAIN IN 1 MONTH- BELONGINGS PACKED AND ACCOUNTED PER SON- PT ESCORTED PER TECH, VIA W/C TO SON VEHICLE AT 1545 WITH BELONGINGS- ALL NEEDS MET AT THIS TIME- NO PROBLEMS NOTED AT TIME OF D/C
== END 2018-03-23 15:45 | disposition home or self-care (01) | DRG 308 ==
LOC: M.ERS 13:58 → M.TBA-ER 15:17 → M.ICU 15:17 → M.2W 03-21 11:50
PROVIDERS: Emergency Medicine Emergency Medical Services; Internal Medicine; Internal Medicine Cardiovascular Disease; ADMIT Internal Medicine
DX: I48.92 Unspecified atrial flutter (principal); I50.33 Acute on chronic diastolic (congestive) heart failure; I11.0 Hypertensive heart disease with heart failure; E11.9 Type 2 diabetes mellitus without complications; H26.9 Unspecified cataract; I48.0 Paroxysmal atrial fibrillation; D64.9 Anemia, unspecified; Z88.8 Allergy status to other drugs, medicaments and biological substances; Z91.041 Radiographic dye allergy status; Z85.72 Personal history of non-Hodgkin lymphomas

== ENCOUNTER → 2018-04-01 | Outpatient (CLI) | payer MEDICARE, BC ==
[~2018-04-01] MED LIST changes: +AMOX TR-K CLV1 EAC3 PO; +ANTIVERT25 MG PO; +ASPIR 8181 MG PO; +CARAFATE 1 GM TA1 G1 PO; +KENWOOD THERAP240 ML PO; +LASIX 80 MG TAB80 MG PO; +MIDODRINE HCL 55 M1 PO; +MIDODRINE HCL2.5 M1 PO
[2018-04-01 15:02] LABS: CALCIUM 9.3 mg/dL (8.5-10.1); CREATININE 1.2 mg/dL (0.6-1.3); POTASSIUM 4.4 mmol/L (3.5-5.1)
== END ==
LOC: M.LAB 14:39
PROVIDERS: Nurse Practitioner Family
DX: I50.32 Chronic diastolic (congestive) heart failure (principal); I11.0 Hypertensive heart disease with heart failure; E11.49 Type 2 diabetes mellitus with other diabetic neurological complication; I48.91 Unspecified atrial fibrillation

== ENCOUNTER 2018-05-12 19:43 | Observation (INO) | payer MEDICARE, BC ==
[~2018-05-12] VITALS: Ht 185.4 cm; Wt 95.3 kg
--- NOTE | ~2018-05-12 | H ---
[facility] [address] [place] [address] HISTORY AND PHYSICAL Name: YAO LOYA Room: [address] Ruthann Rosario#: [id number] Admission: 05/12/18 Attend Phys: Rolando Schreiber DO Discharge: 05/13/18 Date of : 42 Report #: [id number] THIS REPORT FOR: //name// For History and Physical, please see the GI form scanned into Perceptive 7 content. By: [id number] Records Staff CARRIE /NAZ
--- NOTE | ~2018-05-12 | PROC ---
[facility] [address] [place] [address] PROCEDURE REPORT Name: YAO LOYA Room: [address] Ruthann Rosario#: [id number] Admission: 05/12/18 Attend Phys: Rolando Schreiber DO Discharge: 05/13/18 Date of : 42 Report #: [id number] THIS REPORT FOR: //name// For GI report, please see the Provation report in Perceptive 7 content. By: [id number] Records Staff CARRIE /NAZ
[~2018-05-12 19:43] MED LIST changes: -AMOX TR-K CLV1 EAC3 PO; -ANTIVERT25 MG PO; -ASPIR 8181 MG PO; -KENWOOD THERAP240 ML PO; -MIDODRINE HCL 55 M1 PO
[2018-05-12 20:04] VITALS: BP 154/79
[2018-05-12 20:27] LABS: ABSOLUTE MONOCYTES 0.7 thou/uL (0.0-1.2); BASOPHILS 0.7 %; EOSINOPHILS 0.5 %; HEMATOCRIT 29.7 % (42.0-52.0); HEMOGLOBIN 9.6 gm/dL (14.0-18.0); LYMPHOCYTES 15.1 %; MCH 25.6 pg (26.0-34.0); MCHC 32.5 g/dL (28.0-37.0); MCV 78.9 fL (80.0-100.0); MONOCYTES 10.7 %; MPV 7.6 fl. (7.2-11.1); NUCLEATED RBCS 0 /100WBC; PLATELET COUNT* 216 thou/uL (150-400); RBC 3.76 mil/uL (4.50-6.00); RDW-CV 18.7 % (10.5-14.5); WBC 6.8 thou/uL (4.0-11.0)
[2018-05-12 20:36] LABS: CALCIUM 8.8 mg/dL (8.5-10.1); CREATININE 1.5 mg/dL (0.6-1.3)
[2018-05-12 20:41] LABS: ALBUMIN 3.3 g/dL (3.4-5.0); TOTAL BILIRUBIN 0.6 mg/dL (<0.1-1.0); TOTAL PROTEIN 8.1 g/dL (6.4-8.2)
[2018-05-12 20:59] VITALS: BP 150/83
[2018-05-12 23:00] VITALS: BP 147/57
[2018-05-13 03:58] LABS: HEMATOCRIT 27.2 % (42.0-52.0); HEMOGLOBIN 8.8 gm/dL (14.0-18.0); MCH 25.7 pg (26.0-34.0); MCHC 32.3 g/dL (28.0-37.0); MCV 79.6 fL (80.0-100.0); MPV 8.7 fl. (7.2-11.1); NUCLEATED RBCS 0 /100WBC; PLATELET COUNT* 177 thou/uL (150-400); RBC 3.41 mil/uL (4.50-6.00); RDW-CV 18.3 % (10.5-14.5); WBC 6.1 thou/uL (4.0-11.0)
[2018-05-13 04:10] LABS: CALCIUM 8.3 mg/dL (8.5-10.1); CREATININE 1.4 mg/dL (0.6-1.3); POTASSIUM 4.6 mmol/L (3.5-5.1)
[2018-05-13 05:32] LABS: ABSOLUTE LYMPHOCYTES 0.5 thou/uL (0.8-5.3); ABSOLUTE MONOCYTES 0.2 thou/uL (0.0-1.2); ABSOLUTE NEUTROPHILS 5.4 thou/uL (1.6-8.1); PLATELET ESTIMATE ADEQUATE
[2018-05-13 05:33] LABS: ANISOCYTOSIS 1+; POIKILOCYTOSIS 1+
[2018-05-13 09:51] VITALS: BP 147/57
[2018-05-13 10:00] VITALS: BP 111/61
[2018-05-13 12:10] VITALS: BP 147/57
== END 2018-05-13 11:45 | disposition home or self-care (01) ==
LOC: M.ERS 19:43 → M.GI 19:43 → M.TBA-ER 22:36 → M.ORTHSURG 23:39
PROVIDERS: Emergency Medicine; ADMIT Internal Medicine Gastroenterology
DX: K22.2 Esophageal obstruction (principal); T18.128A Food in esophagus causing other injury, initial encounter; I10 Essential (primary) hypertension; E11.9 Type 2 diabetes mellitus without complications; Z85.72 Personal history of non-Hodgkin lymphomas

== ENCOUNTER 2018-06-18 10:25 | Inpatient (IN) | payer MEDICARE, BC ==
[~2018-06-18] VITALS: Ht 188 cm; Wt 98.0 kg
--- NOTE | ~2018-06-18 | PROC ---
[address] [address] PROCEDURE REPORT Name: YAO LOYA Room: [address] IN .R.#: [id number] Admission: 06/18/18 Attend Phys: Tony Livingston MD Discharge: Date of : 42 Report #: [id number] THIS REPORT FOR: //name// For GI report, please see the Provation report in Perceptive 7 content. By: [id number] Records Staff STANISLAW /NAZ
[2018-06-18 10:39] VITALS: BP 143/81
[2018-06-18] MEDS ORDERED: ASPIR 8181 MG PO (10:44)
[2018-06-18 10:50] LABS: HEMATOCRIT 30.6 % (42.0-52.0); HEMOGLOBIN 9.8 gm/dL (14.0-18.0); MCHC 32.2 g/dL (28.0-37.0); MCV 80.9 fL (80.0-100.0); MPV 8.5 fl. (7.2-11.1); NUCLEATED RBCS 0 /100WBC; PLATELET COUNT* 194 thou/uL (150-400); RBC 3.78 mil/uL (4.50-6.00); RDW-CV 17.2 % (10.5-14.5); WBC 13.1 thou/uL (4.0-11.0)
[2018-06-18 10:59] LABS: ANION GAP 5 mmol/L (7-16); BUN 44 mg/dL (7-18); CALCIUM 8.7 mg/dL (8.5-10.1); CHLORIDE 100 mmol/L (98-107); CO2 31 mmol/L (21-32); CREATININE 1.5 mg/dL (0.6-1.3); GLUCOSE 199 mg/dL (70-99); POTASSIUM 4.7 mmol/L (3.5-5.1); SODIUM 136 mmol/L (136-145)
[2018-06-18 11:00] LABS: APTT 28.7 Seconds (25.0-31.3); INR 1.1; PROTIME 11.2 Seconds (9.20-11.50)
[2018-06-18 11:05] LABS: ALBUMIN 3.4 g/dL (3.4-5.0); ALKALINE PHOSPHATASE 113 U/L (46-116); LIPASE 99 U/L (73-393); SGOT 13 U/L (15-37); SGPT 16 U/L (30-65); TOTAL BILIRUBIN 0.4 mg/dL (<0.1-1.0); TOTAL PROTEIN 8.2 g/dL (6.4-8.2); TROPONIN-I LEVEL <0.06 ng/mL (<0.06)
[2018-06-18 11:17] LABS: ABSOLUTE BASOPHILS 0.1 thou/uL (0.0-0.2); ABSOLUTE LYMPHOCYTES 1.2 thou/uL (0.8-5.3); ABSOLUTE MONOCYTES 0.7 thou/uL (0.0-1.2); ABSOLUTE NEUTROPHILS 11.1 thou/uL (1.6-8.1); METAMYELOCYTES 3 %; PLATELET ESTIMATE ADEQUATE
[2018-06-18 12:39] LABS: URINE BILIRUBIN NEGATIVE (Negative); URINE BLOOD NEGATIVE (Negative); URINE CLARITY CLEAR; URINE COLOR YELLOW; URINE GLUCOSE-RANDOM TRACE (Negative); URINE KETONES NEGATIVE (Negative); URINE LEUKOCYTES-REFLEX NEGATIVE (Negative); URINE NITRITE-REFLEX NEGATIVE (Negative); URINE PROTEIN TRACE (Negative); URINE SPECIFIC GRAVITY 1.025 (1.005-1.030); URINE UROBILINOGEN 0.2 E.U./dl (0.2-1.0)
[2018-06-18 16:21] VITALS: BP 170/90
[2018-06-18 17:17] VITALS: BP 152/85
--- NOTE | 2018-06-18 18:20 | EKG ---
[place] [address] ELECTROCARDIOGRAM REPORT Name: SHALININICKYAO W Room: [address] ADM IN ..#: [id number] Admission: 06/18/18 Attend Phys: Tony Livingston MD Discharge: Date of : 42 Report #: [id number] THIS REPORT FOR: //name// [facility] ED Test Date: 2018-06-18 Test Time: 10:53:40 Pat Name: YAO LOYA Department: Room: [facility] Gender: M Ged Instructor: YEMI : 1940 Requested By: Jose Luis Lamar Order Number: [id number] MD: Esteban Perrin Measurements Intervals [place] Rate: 78 P: [place]: QRS: 26 QRSD: 115 T: -2 QT: 399 QTc: 455 Interpretive Statements Atrial fibrillation Incomplete right bundle branch block Compared to ECG 03/20/2018 14:07:04 rate increased Electronically Signed On 06-18-2018 18:20:20 CDT by Esteban Perrin [email or web address] <ELECTRONICALLY SIGNED> By: Esteban Perrin MD, [facility] 06/18/18 1820 1053 1053 Esteban Perrin MD, [facility] /EPI
[2018-06-18 19:25] VITALS: BP 152/73
[2018-06-18 23:28] VITALS: BP 124/57
[2018-06-19 03:30] VITALS: BP 144/75
[2018-06-19 04:08] LABS: ABSOLUTE LYMPHOCYTES 0.6 thou/uL (0.8-5.3); ABSOLUTE MONOCYTES 1.5 thou/uL (0.0-1.2); ABSOLUTE NEUTROPHILS 10.4 thou/uL (1.6-8.1); BASOPHILS 0.2 %; HEMATOCRIT 28.3 % (42.0-52.0); HEMOGLOBIN 9.2 gm/dL (14.0-18.0); MCH 26.4 pg (26.0-34.0); MCHC 32.5 g/dL (28.0-37.0); MCV 81.2 fL (80.0-100.0); MONOCYTES 11.6 %; MPV 8.8 fl. (7.2-11.1); NUCLEATED RBCS 0 /100WBC; PLATELET COUNT* 167 thou/uL (150-400); POLYS 83.2 %; RBC 3.48 mil/uL (4.50-6.00); RDW-CV 17.6 % (10.5-14.5); WBC 12.5 thou/uL (4.0-11.0)
[2018-06-19 04:32] LABS: CALCIUM 8.7 mg/dL (8.5-10.1); CREATININE 1.4 mg/dL (0.6-1.3); POTASSIUM 4.4 mmol/L (3.5-5.1)
[2018-06-19 07:30] VITALS: BP 141/72
[2018-06-19 14:23] VITALS: BP 140/75
[2018-06-19 15:40] VITALS: BP 145/77
--- NOTE | 2018-06-19 16:39 | EKG ---
[place] [address] ELECTROCARDIOGRAM REPORT Name: YAO LOYA Room: [address] ADM IN M.R.#: [id number] Admission: 06/18/18 Attend Phys: Tony Livingston MD Discharge: Date of : 42 Report #: [id number] THIS REPORT FOR: //name// [facility] Test Date: 2018-06-19 Test Time: 11:03:49 Pat Name: YAO LOYA Department: Room: [address] Gender: M Home Management Supervisor: [facility] : 1940 Requested By: Tony Livingston Order Number: [id number] Natasha MD: Ricardo Momin Measurements Intervals [place] Rate: 81 P: [place]: QRS: 30 QRSD: 112 T: 11 QT: 411 QTc: 477 Interpretive Statements Atrial fibrillation Incomplete right bundle branch block Borderline prolonged QT interval Compared to ECG 06/18/2018 10:53:40 No significant changes Electronically Signed On 06-19-2018 16:39:18 CDT by Ricardo Momin [email or web address] <ELECTRONICALLY SIGNED> By: Ricardo Momin MD, [facility] 06/19/18 6971 1103 1103 Ricardo Momin MD, [facility] /EPI
[2018-06-19 20:00] VITALS: BP 135/72
[2018-06-20] VITALS: BP 140/74
[2018-06-20 04:00] VITALS: BP 106/63
[2018-06-20 04:32] LABS: ABSOLUTE LYMPHOCYTES 0.9 thou/uL (0.8-5.3); ABSOLUTE MONOCYTES 1.3 thou/uL (0.0-1.2); ABSOLUTE NEUTROPHILS 7.5 thou/uL (1.6-8.1); BASOPHILS 0.3 %; EOSINOPHILS 0.1 %; HEMATOCRIT 27.6 % (42.0-52.0); LYMPHOCYTES 9.7 %; MCH 26.6 pg (26.0-34.0); MCHC 32.6 g/dL (28.0-37.0); MCV 81.6 fL (80.0-100.0); MONOCYTES 13.5 %; MPV 8.8 fl. (7.2-11.1); NUCLEATED RBCS 0 /100WBC; PLATELET COUNT* 157 thou/uL (150-400); POLYS 76.4 %; RBC 3.38 mil/uL (4.50-6.00); RDW-CV 17.3 % (10.5-14.5); WBC 9.8 thou/uL (4.0-11.0)
[2018-06-20 04:50] LABS: ALBUMIN 2.7 g/dL (3.4-5.0); CALCIUM 8.1 mg/dL (8.5-10.1); CREATININE 1.4 mg/dL (0.6-1.3); POTASSIUM 3.9 mmol/L (3.5-5.1); TOTAL BILIRUBIN 0.5 mg/dL (<0.1-1.0); TOTAL PROTEIN 6.8 g/dL (6.4-8.2)
[2018-06-20 08:40] VITALS: BP 130/82
[2018-06-20 12:10] VITALS: BP 147/78
[2018-06-20 12:11] VITALS: BP 107/65
[2018-06-20 20:00] VITALS: BP 138/63
[2018-06-21 07:55] VITALS: BP 138/76
[2018-06-21 16:40] VITALS: BP 123/59
[2018-06-21 19:45] VITALS: BP 144/72
[2018-06-22] VITALS: BP 124/84
[2018-06-22 04:00] VITALS: BP 140/76
[2018-06-22 08:30] VITALS: BP 132/65
--- NOTE | 2018-06-22 08:44 | CON ---
[address] [address] CONSULTATION Name: SHALINIYAO W Room: [address] IN M.R.#: [id number] Admission: 06/18/18 Attend Phys: Tony Livingston MD Discharge: Date of : 42 Report #: [id number] THIS REPORT FOR: //name// CC: Tony Rodriguez Almaraz Ernesto Simpson DATE OF SERVICE: 06/22/2018 Infectious Disease Consultation REASON FOR CONSULTATION: Aspiration pneumonia. HISTORY OF PRESENT ILLNESS: A 77-year-old white man, recently discharged from another facility where he underwent esophageal dilatation and placement of esophageal stent. The stent removed here in the hospital. The patient is found to have abnormal CT scan of the chest, compatible with aspiration pneumonia. He is on broad-spectrum antibiotic coverage. He is alert, comfortable, and denies dysphagia, but occasional cough productive of sputum. PAST MEDICAL HISTORY: Esophageal stricture, requiring dilatation, status post removal of esophageal stent. Acute renal injury. History of bradycardia. Hyperglycemia. Pulmonary infiltrates. Hypertension. Diabetes mellitus. Non-Hodgkin lymphoma. Back surgery for tumor. Prostate surgery. Partial gastrectomy. Heart ablation. Pericardial pleural effusion in the past. DRUG ALLERGIES: METOPROLOL, CONTRAST DYE, INTRAVENOUS. MEDICATIONS: The patient is on treatment with Zosyn 3.375 grams IV every 8 hours, vancomycin 1250 mg IV twice daily, also receiving treatment with fentanyl p.r.n., aspirin, furosemide, pantoprazole, midodrine, insulin glargine, enoxaparin, Carafate, Atrovent, albuterol inhalation treatments, p.r.n. hydralazine, p.r.n. ondansetron, polyethylene glycol daily. SOCIAL HISTORY: See H and P, old records. FAMILY HISTORY: See H and P, old records. REVIEW OF SYSTEMS: As above and see H and P. PHYSICAL EXAMINATION: GENERAL: Well-developed, not toxic looking man. VITAL SIGNS: Temperature up to 100 on 06/18 midnight, 98 this morning, pulse 58, respirations 20, BP 140/76, height 6 feet 2 inches, weight 216 pounds, O2 saturation 97% on room air. HEENMT: Arcus cornealis. Pupils reactive. Mouth: [place] [address] CONSULTATION Name: YAO LOYA Room: [address]#: [id number] Admission: 06/18/18 Attend Phys: Tony Livingston MD Discharge: Date of : 42 Report #: [id number] NECK: Supple, no thyromegaly. LUNGS: Bibasilar crackles, worse on left. HEART: S1, S2. No gallop or murmur. ABDOMEN: Surgical scar, epigastric area. Soft, no masses or megaly. GENITALIA AND RECTAL: Deferred. EXTREMITIES: Some trace pretibial edema. NEUROLOGIC: Grossly within normal limits. LABORATORY DATA: Sodium 142, potassium 3.9, BUN 33, creatinine 1.4, glucose 128, albumin 2.7 g/dL. [place]BC on admission [address] on; on 06/20, 9800; hemoglobin 9 g/dL, platelets 157,000. White blood cell count differential revealed 76% segmented neutrophils. Prealbumin 15.2 mg/dL. MICROBIOLOGY DATA: Blood cultures were ordered. These remain negative so far from 05/18. RADIOLOGY EVALUATION: CT scan of the chest without contrast revealed cardiomegaly. Patchy infiltrates, primary left lung, possible aspiration, moderate right pleural effusion, postoperative changes, thoracic spine with posterior laminectomies, esophageal stent. ASSESSMENT: 1. Possible aspiration pneumonia. 2. Esophageal strictures, status post dilatation and removal of stent. 3. Hypertension. 4. Malnutrition. 5. Atrial flutter/fibrillation. SUGGESTIONS: Recommend continue current regimen of vancomycin and Zosyn. Monitor vancomycin level. Vancomycin being dosed by pharmacy. Monitor laboratory parameters. Thank you for requesting our suggestions in the care of your patient. <ELECTRONICALLY SIGNED> By: Armando Lal MD 06/22/18 0844 0433 [id number] Lal MD /nt
[2018-06-22 12:00] VITALS: BP 121/53
[2018-06-22 16:00] VITALS: BP 138/64
[2018-06-22 19:30] VITALS: BP 140/71
[2018-06-23] VITALS: BP 131/59
[2018-06-23 04:00] VITALS: BP 123/47
[2018-06-23 05:03] LABS: CALCIUM 7.9 mg/dL (8.5-10.1); CREATININE 1.4 mg/dL (0.6-1.3)
[2018-06-23 05:09] LABS: ABSOLUTE EOSINOPHILS 0.1 thou/uL (0.0-0.7); ABSOLUTE LYMPHOCYTES 1.2 thou/uL (0.8-5.3); ABSOLUTE NEUTROPHILS 6.8 thou/uL (1.6-8.1); BASOPHILS 0.5 %; EOSINOPHILS 0.7 %; HEMATOCRIT 26.8 % (42.0-52.0); HEMOGLOBIN 8.8 gm/dL (14.0-18.0); LYMPHOCYTES 13.2 %; MCH 26.4 pg (26.0-34.0); MCHC 32.9 g/dL (28.0-37.0); MCV 80.3 fL (80.0-100.0); MONOCYTES 10.6 %; MPV 8.8 fl. (7.2-11.1); NUCLEATED RBCS 0 /100WBC; PLATELET COUNT* 182 thou/uL (150-400); RBC 3.33 mil/uL (4.50-6.00); WBC 9.1 thou/uL (4.0-11.0)
[2018-06-23 06:30] LABS: ESR (SEDRATE) 100 mm/hr (0-20)
--- NOTE | 2018-06-23 08:12 | CON ---
[address] [address] CONSULTATION Name: SHALINIYAO W Room: [address] IN M.R.#: [id number] Admission: 06/18/18 Attend Phys: Tony Livingston MD Discharge: Date of : 42 Report #: [id number] THIS REPORT FOR: //name// CC: Tony Simpson HISTORY OF PRESENT ILLNESS: This is a 77-year-old gentleman with a history of esophageal stricture who actually a few days ago had a stent placed at [facility]. Apparently, he ran through a complication after the stent placement with episodes of aspiration and inability to swallow and pain. He was readmitted to this facility. He is seen by GI and the stent was taken out. Reviewing his record indicated that he had history of lymphoma and history of gastric cancer in the past. He was treated by radiation at one point, closed esophageal stricture. Also reviewing his record indicated he had elevated BNP in the past and he had bilateral pleural effusion going back to CTs in 2017. At one point, he had drainage of the fluid according to him, although it was not in this facility. He is not sure which hospital, he thinks maybe [facility]. When I saw him, he was on room air doing fairly well and now he is on diet and he is able to swallow. Initially, he told me when he came in he had cough and shortness of breath. The cough is mostly dry, but these symptoms have resolved. He denied fever, chills, nausea or vomiting at this point. PAST MEDICAL HISTORY: History of esophageal stricture, atrial fibrillation, history of hypertension and diabetes mellitus. He has a history of non Hodgkin's lymphoma treated with radiation and history of gastric cancer, status post surgery. He has a history of pericardial and pleural effusion in the past, sepsis, esophageal and duodenal ulcers, esophageal stent and ulnar surgery. PAST SURGICAL HISTORY: Back surgery, prostate surgery, carpal tunnel syndrome, abdominal hernia repair and cataract. SOCIAL HISTORY: Never smoked. Does not drink alcohol. Does not abuse drugs. HOME MEDICATIONS: Aspirin, Carafate, Lasix, midodrine and insulin. ALLERGIES: CONTRAST AND METOPROLOL. REVIEW OF SYSTEMS: Twelve system review of the patient negative other than as mentioned above. PHYSICAL EXAMINATION: VITAL SIGNS: On examination, he is on room air. O2 saturation more than 90%, blood pressure 124/84, breathing 18 times a minute, temperature 36.9 and pulse rate of 50. HEENT: Head is normocephalic and atraumatic. Pupils are reactive to light. Extra[place] [address] CONSULTATION Name: SHALINIYAO W Room: [address] IN ..#: [id number] Admission: 06/18/18 Attend Phys: Tony Livingston MD Discharge: Date of : 42 Report #: [id number] NECK: Supple. No palpable lymph nodes. No palpable thyroid. Trachea is central. CHEST: Diminished air movement at the bases. No crackles and no wheezes. Nontender chest palpation. HEART: S1 and S2. ABDOMEN: Benign, soft, lax, nontender, positive bowel sounds, no masses felt. EXTREMITIES: Lower extremity, no edema, no calf tenderness. SKIN: Normal for age and race. PSYCHIATRIC: Mood and affect is appropriate. Good insight and judgment. LYMPHATICS: No palpable lymph nodes. NEUROLOGIC: Moving 4 extremities spontaneously. No focal weakness. LABORATORY DATA: His chest x-ray showing cardiomegaly with no evidence of failure, some right lower lobe infiltrate and possible pleural effusion, although the CT scan of the chest showed cardiomegaly with patchy infiltrates on both lung bases and right-sided pleural effusion. His potassium is 3.9 with a chloride of 108, BUN of 33 and creatinine of 1.4. His INR is 1.1. Hemoglobin upon presentation 9.8, total white blood count 13.1 and platelets of 194. IMPRESSION: 1. Aspiration pneumonia. 2. Dyspnea. 3. Esophageal stricture. 4. Pulmonary infiltrate. 5. Pleural effusion. At this point, we will continue the patient on antibiotic. She is on room air and doing fairly well. Continue scheduled nebulization treatments. Encourage ambulation and getting out of bed. We already started him back on diet and evaluated by GI. Regarding the pleural effusion, he is completely asymptomatic and he is doing fairly well. He may benefit from some diuresis. We will hold off on thoracentesis at this point and if he develops any symptoms or the size of the pleural effusion worsens, we can consider thoracentesis. Thank you for the consult. <ELECTRONICALLY SIGNED> By: Daniela Garcia MD 06/23/18 0812 0819 [id number] Lopes MD /nt
[2018-06-23 08:51] VITALS: BP 138/57
[2018-06-23 12:00] VITALS: BP 124/73
[2018-06-23 16:00] VITALS: BP 145/59
[2018-06-23 20:50] VITALS: BP 101/64
[2018-06-24] VITALS: BP 146/75
[2018-06-24 04:00] VITALS: BP 131/59
[2018-06-24 04:32] LABS: ABSOLUTE BASOPHILS 0.1 thou/uL (0.0-0.2); ABSOLUTE EOSINOPHILS 0.1 thou/uL (0.0-0.7); ABSOLUTE LYMPHOCYTES 1.2 thou/uL (0.8-5.3); ABSOLUTE MONOCYTES 1.2 thou/uL (0.0-1.2); ABSOLUTE NEUTROPHILS 7.5 thou/uL (1.6-8.1); BASOPHILS 0.7 %; EOSINOPHILS 1.2 %; HEMATOCRIT 27.4 % (42.0-52.0); HEMOGLOBIN 9.1 gm/dL (14.0-18.0); LYMPHOCYTES 12.4 %; MCH 26.8 pg (26.0-34.0); MCHC 33.4 g/dL (28.0-37.0); MCV 80.3 fL (80.0-100.0); MONOCYTES 11.8 %; MPV 8.6 fl. (7.2-11.1); NUCLEATED RBCS 0 /100WBC; PLATELET COUNT* 191 thou/uL (150-400); POLYS 73.9 %; RBC 3.41 mil/uL (4.50-6.00); WBC 10.1 thou/uL (4.0-11.0)
[2018-06-24 04:47] LABS: CALCIUM 7.9 mg/dL (8.5-10.1); CREATININE 1.6 mg/dL (0.6-1.3); MAGNESIUM 1.5 mg/dL (1.8-2.4); POTASSIUM 3.2 mmol/L (3.5-5.1)
[2018-06-24 08:41] VITALS: BP 134/59
[2018-06-24 12:00] VITALS: BP 135/53
[2018-06-24 15:00] VITALS: BP 141/64
[2018-06-24 20:56] VITALS: BP 145/62
[2018-06-25] VITALS: BP 163/72
[2018-06-25 04:00] VITALS: BP 118/55
[2018-06-25 04:16] LABS: CALCIUM 8.2 mg/dL (8.5-10.1); CREATININE 1.4 mg/dL (0.6-1.3); MAGNESIUM 1.6 mg/dL (1.8-2.4); POTASSIUM 3.8 mmol/L (3.5-5.1)
[2018-06-25 08:15] VITALS: BP 133/77
[2018-06-25] MEDS ORDERED: MIDODRINE HCL 55 M1 PO (12:01)
[2018-06-25] MEDS ORDERED: NEXIUM40 MG PO (12:02)
[2018-06-25] MEDS ORDERED: KENWOOD THERAP240 ML PO (12:03)
[2018-06-25 13:11] VITALS: BP 133/77
[2018-06-25 14:15] VITALS: BP 139/64
[2018-06-25] MEDS ORDERED: AMOX TR-K CLV1 EAC3 PO (14:49)
--- NOTE | 2018-07-07 11:23 | CON ---
[address] [address] CONSULTATION Name: SHALINIYAO Ivan Room: [address] IN M.R.#: [id number] Admission: 06/18/18 Attend Phys: Tony Livingston MD Discharge: 06/25/18 Date of : 42 Report #: [id number] THIS REPORT FOR: //name// CC: Tony Simpson HISTORY OF PRESENT ILLNESS: This is a very pleasant 77-year-old gentleman with past medical history significant for esophageal stricture for which the patient presented with a food bolus impaction several times and had esophageal dilation performed four times in the past who is presenting with chest pain and pain and difficulty with swallowing. The patient underwent EGD with stent placement at [facility] two days back. To prevent stent migration, sutures were placed to the esophageal wall and since then the patient has had difficulty swallowing. The patient reports pain and inability to swallow solids or liquids. His pain is sometimes alleviated by GI cocktail, but otherwise is more or less constant and worse when he attempts to swallow. The patient denies any fevers or chills, nausea or vomiting. PAST MEDICAL HISTORY: The patient has a history of benign esophageal stricture and AFib with slow ventricular response. The patient also has a history of hypertension and diabetes mellitus. PAST SURGICAL HISTORY: The patient has a history of back surgery, prostate surgery, carpal tunnel syndrome, abdominal hernia repair and cataracts. SOCIAL HISTORY: The patient denies any smoking, alcohol or recreational drug use. FAMILY HISTORY: Reviewed and nonsignificant. REVIEW OF SYSTEMS: A comprehensive 10-point review of systems is negative except for what was mentioned here. PHYSICAL EXAMINATION: VITAL SIGNS: Temperature 37.1, pulse rate 62, respirations 18, blood pressure 145/77 and pulse ox 97% on room air. GENERAL: The patient is alert, awake and oriented x 3. HEENT: Mucous membranes are moist. There is no congestion. LUNGS: Clear to auscultation bilaterally. CARDIOVASCULAR: Rate and rhythm regular, S1, S2 present. NECK: Supple. There is no supraclavicular lymphadenopathy. ABDOMEN: Soft. There is no distention, no tenderness, no guarding or rigidity. EXTREMITIES: Warm and well perfused. There is no edema. SKIN: [place] [address] CONSULTATION Name: YAO LOYA Room: [address]#: [id number] Admission: 06/18/18 Attend Phys: Tony Lviingston MD Discharge: 06/25/18 Date of : 42 Report #: [id number] LABORATORY DATA: Hemoglobin 9.2, hematocrit 28.3, WBC count 12.5 and platelet count 167. Sodium 141, potassium 4.4, chloride 105, bicarbonate 30, BUN 37 and creatinine 1.4. Chest CT demonstrates patchy infiltrates in the left lung suspicious for aspiration pneumonia. Moderate right pleural effusion. Abdomen and pelvis CT, high density in the gallbladder most likely contradictory contrast excretion. No distention. Moderate stool in the colon suggesting fecal impaction. ASSESSMENT AND PLAN: This is a very pleasant 77-year-old male with past medical history of benign esophageal stricture requiring multiple dilations. The patient underwent EGD with stent placement and suturing two days back and now presents with worsening dysphagia and odynophagia. We will proceed with EGD and further recommendations will be based on EGD. Aspiration pneumonia, continue with IV Zosyn for aspiration pneumonia. <ELECTRONICALLY SIGNED> By: Ernesto Simpson MD 07/07/18 1123 1729 [id number] Simpson MD /nt
== END 2018-06-25 15:03 | disposition home or self-care (01) | DRG 177 ==
LOC: M.ERS 10:25 → M.3W 12:46 → M.TBA-ER 12:46 → M.3W 16:26
PROVIDERS: Family Medicine; Internal Medicine Gastroenterology; ADMIT Internal Medicine
PROC: 0DP58DZ Removal of Intraluminal Device from Esophagus, Via Natural or Artificial Opening Endoscopic (ICD-10-PCS; principal; 2018-06-19)
DX: J69.0 Pneumonitis due to inhalation of food and vomit (principal); R65.11 Systemic inflammatory response syndrome (SIRS) of non-infectious origin with acute organ dysfunction; N17.9 Acute kidney failure, unspecified; I48.92 Unspecified atrial flutter; J90 Pleural effusion, not elsewhere classified; E44.0 Moderate protein-calorie malnutrition; C85.90 Non-Hodgkin lymphoma, unspecified, unspecified site; I48.91 Unspecified atrial fibrillation; H26.9 Unspecified cataract; E86.0 Dehydration; G56.00 Carpal tunnel syndrome, unspecified upper limb; R13.12 Dysphagia, oropharyngeal phase; K22.2 Esophageal obstruction; I12.9 Hypertensive chronic kidney disease with stage 1 through stage 4 chronic kidney disease, or unspecified chronic kidney disease; E11.22 Type 2 diabetes mellitus with diabetic chronic kidney disease; E78.5 Hyperlipidemia, unspecified; N18.3 Chronic kidney disease, stage 3 (moderate); E87.6 Hypokalemia; D50.9 Iron deficiency anemia, unspecified; Z92.3 Personal history of irradiation; Z90.49 Acquired absence of other specified parts of digestive tract; Z79.899 Other long term (current) drug therapy; Z79.82 Long term (current) use of aspirin; Z79.4 Long term (current) use of insulin; Z88.8 Allergy status to other drugs, medicaments and biological substances; Z91.041 Radiographic dye allergy status; Z68.27 Body mass index [BMI] 27.0-27.9, adult; Z85.00 Personal history of malignant neoplasm of unspecified digestive organ

== ENCOUNTER 2018-08-03 19:29 | Inpatient (IN) | payer MEDICARE, BC ==
[~2018-08-03] VITALS: Ht 188 cm; Wt 96.6 kg
[~2018-08-03 19:29] MED LIST changes: +AMOX TR-K CLV1 EAC3 PO; +ASPIR 8181 MG PO; +KENWOOD THERAP240 ML PO; +MIDODRINE HCL 55 M1 PO
[2018-08-03 19:49] VITALS: BP 140/79
[2018-08-03 20:17] LABS: ABSOLUTE BASOPHILS 0.1 thou/uL (0.0-0.2); ABSOLUTE EOSINOPHILS 0.1 thou/uL (0.0-0.7); ABSOLUTE LYMPHOCYTES 1.5 thou/uL (0.8-5.3); ABSOLUTE NEUTROPHILS 6.7 thou/uL (1.6-8.1); BASOPHILS 0.6 %; EOSINOPHILS 0.8 %; HEMATOCRIT 32.6 % (42.0-52.0); HEMOGLOBIN 10.8 gm/dL (14.0-18.0); LYMPHOCYTES 15.8 %; MCH 27.6 pg (26.0-34.0); MCV 83.9 fL (80.0-100.0); MONOCYTES 10.4 %; MPV 7.9 fl. (7.2-11.1); NUCLEATED RBCS 0 /100WBC; PLATELET COUNT* 226 thou/uL (150-400); POLYS 72.4 %; RBC 3.89 mil/uL (4.50-6.00); RDW-CV 17.4 % (10.5-14.5); WBC 9.3 thou/uL (4.0-11.0)
[2018-08-03 20:26] LABS: INR 1.1; PROTIME 10.8 Seconds (9.20-11.50)
[2018-08-03 20:31] LABS: ANION GAP 4 mmol/L (7-16); BUN 32 mg/dL (7-18); CALCIUM 8.9 mg/dL (8.5-10.1); CHLORIDE 101 mmol/L (98-107); CO2 30 mmol/L (21-32); CREATININE 1.6 mg/dL (0.6-1.3); GLUCOSE 168 mg/dL (70-99); POTASSIUM 4.7 mmol/L (3.5-5.1); SODIUM 135 mmol/L (136-145)
[2018-08-03 20:37] LABS: ALBUMIN 3.1 g/dL (3.4-5.0); ALKALINE PHOSPHATASE 141 U/L (46-116); NT-PRO BRAIN NAT PEPTIDE 1531 pg/mL (<300); SGOT 19 U/L (15-37); SGPT 17 U/L (30-65); TOTAL BILIRUBIN 0.3 mg/dL (<0.1-1.0); TOTAL PROTEIN 7.9 g/dL (6.4-8.2); TROPONIN-I LEVEL <0.06 ng/mL (<0.06)
[2018-08-03 21:02] LABS: URINE BILIRUBIN NEGATIVE (Negative); URINE BLOOD NEGATIVE (Negative); URINE CLARITY CLEAR; URINE COLOR YELLOW; URINE GLUCOSE-RANDOM NEGATIVE (Negative); URINE KETONES NEGATIVE (Negative); URINE LEUKOCYTES-REFLEX NEGATIVE (Negative); URINE NITRITE-REFLEX NEGATIVE (Negative); URINE PROTEIN NEGATIVE (Negative); URINE UROBILINOGEN 0.2 E.U./dl (0.2-1.0)
[2018-08-03 23:39] VITALS: BP 166/67
[2018-08-04] VITALS (7 sets, daily range): BP systolic 127–166; BP diastolic 67–91
[2018-08-04 05:52] LABS: HEMATOCRIT 31.2 % (42.0-52.0); HEMOGLOBIN 10.3 gm/dL (14.0-18.0); MCH 27.7 pg (26.0-34.0); MCHC 32.9 g/dL (28.0-37.0); MCV 84.2 fL (80.0-100.0); MPV 8.8 fl. (7.2-11.1); RBC 3.71 mil/uL (4.50-6.00); RDW-CV 17.2 % (10.5-14.5); WBC 8.4 thou/uL (4.0-11.0)
[2018-08-04 06:08] LABS: ALBUMIN 2.9 g/dL (3.4-5.0); CALCIUM 8.6 mg/dL (8.5-10.1); CREATININE 1.3 mg/dL (0.6-1.3); POTASSIUM 4.4 mmol/L (3.5-5.1); TOTAL BILIRUBIN 0.4 mg/dL (<0.1-1.0); TOTAL PROTEIN 6.9 g/dL (6.4-8.2)
--- NOTE | 2018-08-04 17:07 | 2DMMODE ---
[place] [address] 2 D/M-MODE ECHOCARDIOGRAM Name: YAO LOYA Room: [address] IN [facility]#: [id number] Admission: 08/03/18 Attend Phys: Tony Livingston, Discharge: Date of : 42 Date of Service: 08/04/18 1707 Report #: [id number] THIS REPORT FOR: //name// APPROVED REPORT Study performed: 08/04/2018 15:52:55 EXAM: Comprehensive 2D, Doppler, and color-flow Echocardiogram Patient Location: In-Patient Room #: [facility] Status: routine BSA: 2.24 HR: 60 bpm BP: 156/84 mmHg Rhythm: NSR Other Information Study Quality: Good Indications Dizziness and Vertigo 2D Dimensions IVSd: 11.19 (7-11mm) LVOT Diam: 25.03 (18-24mm) LVDd: 47.53 mm PWd: 11.42 (7-11mm) Ascending Ao: 33.58 (22-36mm) LVDs: 31.32 (25-40mm) Aortic Root: 36.45 mm Volumes Left Atrial Volume (Systole) LA ESV Index: 35.20 mL/m2 Aortic Valve AoV Peak Sukhjinder.: 2.33 m/s AO Peak Gr.: 21.63 mmHg LVOT Max P.36 mmHg AO Mean Gr.: 12.94 mmHg LVOT Mean P.09 mmHg LVOT Max V: 0.77 m/s AO V2 VTI: 43.05 cm LVOT Mean V: 0.47 m/s JANEEN (VTI): 1.70 cm2 LVOT V1 VTI: 14.85 cm Mitral Valve E/A Ratio: 1.79 MV Decel. Time: 215.48 ms MV E Max Sukhjinder.: 1.16 m/[place] [address] 2 D/M-MODE ECHOCARDIOGRAM Name: YAO LOYA Room: [address] [facility]#: [id number] Admission: 08/03/18 Attend Phys: Tony Livingston, Discharge: Date of : 42 Date of Service: 08/04/18 1707 Report #: [id number] MV PHT: 62.49 ms MVA (PHT): 3.52 cm2 TDI E/Lateral E': 7.73 E/Medial E': 19.33 Medial E' Sukhjinder.: 0.06 m/s Lateral E' Sukhjinder.: 0.15 m/s Pulmonary Valve PV Peak Sukhjinder.: 1.12 m/s PV Peak Gr.: 5.06 mmHg Tricuspid Valve RAP Estimate: 5.00 mmHg TR Peak Gr.: 28.75 mmHg RVSP: 33.00 mmHg PA Pressure: 33.00 mmHg Left Ventricle The left ventricle is normal size. There is normal LV segmental wall motion. There is normal left ventricular wall thickness. Left ventricular systolic function is normal. The left ventricular ejection fraction is within the normal range. LVEF is 60%. The left ventricular diastolic function is normal. Right Ventricle The right ventricle is normal size. The right ventricular systolic function is normal. Atria Left atrium is mildly dilated. The right atrium size is normal. Aortic Valve Moderate aortic valve sclerosis. No aortic regurgitation is present. Mild aortic stenosis. Mitral Valve The mitral valve is normal in structure. Trace mitral regurgitation. No evidence of mitral valve stenosis. Tricuspid Valve The tricuspid valve is normal in structure. Mild tricuspid regurgitation. Mild pulmonary hypertension. Pulmonic Valve The pulmonary valve is normal in structure. Trace [place] [address] 2 D/M-MODE ECHOCARDIOGRAM Name: YAO LOYA Room: [address]#: [id number] Admission: 08/03/18 Attend Phys: Tony Livingston, Discharge: Date of : 42 Date of Service: 08/04/18 1707 Report #: [id number] Great Vessels The aortic root is normal in size. IVC is normal in size and collapses >50% with inspiration. Pericardium There is no pericardial effusion. <Conclusion> The left ventricle is normal size. There is normal left ventricular wall thickness. Left ventricular systolic function is normal. The left ventricular ejection fraction is within the normal range. LVEF is 60%. The left ventricular diastolic function is normal. The right ventricle is normal size. Left atrium is mildly dilated. Moderate aortic valve sclerosis. No aortic regurgitation is present. Mild aortic stenosis. The mitral valve is normal in structure. Trace mitral regurgitation. The tricuspid valve is normal in structure. IVC is normal in size and collapses >50% with inspiration. There is no pericardial effusion. There is normal LV segmental wall motion. <ELECTRONICALLY SIGNED> By: Ricardo Momin MD, FACC 08/04/181706 06 06 Ricardo Momin MD, FACC /INF
[2018-08-05] VITALS: BP 158/74
[2018-08-05 04:00] VITALS: BP 145/70
[2018-08-05 08:00] VITALS: BP 138/80
--- NOTE | 2018-08-05 11:11 | EKG ---
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 : 1940 Requested By: Jaqui Sebastian Order Number: [id number] MD: Agustin Allison Measurements Intervals [place] Rate: 80 P: 0 CA: 160 QRS: 47 QRSD: 107 T: 21 QT: 373 QTc: 431 Interpretive Statements Sinus rhythm Low voltage, precordial leads Probable right ventricular hypertrophy Borderline ST elevation, lateral leads Compared to ECG 06/19/2018 11:03:49 Low QRS voltage now present ST (T wave) deviation now present Atrial fibrillation no longer present Incomplete right bundle-branch block no longer present Electronically Signed On 08-05-2018 11:11:18 [employer] by Agustin Allison [email or web address] <ELECTRONICALLY SIGNED> By: Agustin Allison MD, FACC 08/05/18 1111 00 00 Agustin Allison MD, FACC /EPI
[2018-08-05 11:20] VITALS: BP 126/68
[2018-08-05 15:48] VITALS: BP 123/85
[2018-08-05 20:00] VITALS: BP 138/80
[2018-08-06] VITALS: BP 151/82
[2018-08-06 04:00] VITALS: BP 128/79
[2018-08-06 08:30] VITALS: BP 145/79
[2018-08-06] MEDS ORDERED: ANTIVERT25 MG PO ×2 (09:00→12:30)
[2018-08-06 12:00] VITALS: BP 126/69
[2018-08-06 12:03] VITALS: BP 145/79
--- NOTE | 2018-08-11 09:23 | CON ---
[address] [address] CONSULTATION Name: YAO LOYA Room: [address] IN .R.#: [id number] Admission: 08/03/18 Attend Phys: Tony Livingston MD Discharge: 08/06/18 Date of : 42 Report #: [id number] THIS REPORT FOR: //name// CC: Tony Rodriguez [place] DATE OF SERVICE: 08/04/2018 REFERRING PHYSICIAN: Dr. Livingston. REASON FOR CONSULTATION: Urinary retention. HISTORY OF PRESENT ILLNESS: This is a 78-year-old male known to me with a history of BPH and past problems with urinary retention. He is admitted with multiple medical problems. Urology was consulted regarding urinary retention. The patient reports urinary frequency, somewhat worse over the past couple of days, but states his voiding symptoms are otherwise at baseline as far as hesitancy and slow stream. He denies dysuria, hematuria, abdominal pain or flank pain. Postvoid residual was checked and the patient was advised to have a Parikh catheter based on that being over 300 mL. He declined Parikh catheter and stated he voided immediately after that. He has been on Flomax in the past, but has reportedly stopped that due to dizziness and unsteadiness. PAST MEDICAL HISTORY: As above. Also, has a history of hypertension, diabetes, atrial fibrillation, lymphoma, peptic ulcer disease and renal insufficiency. ALLERGIES: Include CONTRAST and METOPROLOL. MEDICATIONS: List is reviewed. FAMILY HISTORY: Noncontributory. SOCIAL HISTORY: He denies use of tobacco or alcohol. REVIEW OF SYSTEMS: As per the history of present illness. Denies fever. Denies chest pain, shortness of breath, cough or palpitations. He reports dizziness has improved somewhat. PHYSICAL EXAMINATION: GENERAL: This is a 78-year-old male in no acute distress. He is awake, alert and answers questions appropriately. VITAL SIGNS: Include temperature of 36.4, pulse of 79, respirations 15, blood pressure 152/71. HEENT: Normocephalic, atraumatic. Extraocular movements are intact. Oropharynx is clear. NECK: [place] [address] CONSULTATION Name: YAO LOYA Room: [address]#: [id number] Admission: 08/03/18 Attend Phys: Tony Livingston MD Discharge: 08/06/18 Date of : 42 Report #: [id number] RESPIRATORY: Effort and excursion are normal. CHEST WALL: Nontender. CARDIAC: Rhythm is regular. Radial pulses are palpable. EXTREMITIES: Warm. Moves all extremities well. No peripheral edema. ABDOMEN: Flanks are nontender. No suprapubic tenderness. LABORATORY DATA: Include negative urinalysis. White count 8.4, hemoglobin 10.3, platelet count 185,000. Sodium 144, potassium 4.4, chloride 104, CO2 of 29, BUN 29, creatinine 1.3, glucose 115. Noncontrast CT scan of the abdomen and pelvis was performed and reveals a right renal cyst. This also shows a rectal impaction. IMPRESSION AND PLAN: Benign prostatic hypertrophy with elevated postvoid residual, which to some degree is chronic, but likely worsened by his constipation. We will defer management of the constipation to the primary service. Recommend checking a repeat postvoid residual and placing a Parikh catheter if over 350 mL. We will avoid Flomax at this time due to his dizziness. <ELECTRONICALLY SIGNED> By: Ricardo Garcia MD 08/11/18 0923 0836 1934Jocindy Garcia MD /nt
--- NOTE | 2018-08-16 15:44 | CON ---
[address] [address] CONSULTATION Name: SHALINIYAO W Room: [address] IN .R.#: [id number] Admission: 08/03/18 Attend Phys: Tony Livingston MD Discharge: 08/06/18 Date of : 42 Report #: [id number] THIS REPORT FOR: //name// CC: Tony Rodriguez [place] DATE OF SERVICE: 08/04/2018 HISTORY OF PRESENT ILLNESS: This is a 78-year-old male patient who was evaluated by me for dizziness. He indicated that the dizziness started spontaneously yesterday. He in fact got up with it. Dizziness is better since yesterday. He does not know any aggravating or relieving factor for this dizziness. He indicated that he had another episode of dizziness a few years ago when he had some ankle surgery. History is not completely clear about that episode. REVIEW OF SYSTEMS: Indicate that he sees a manager msw. He knows he had more in his heart. Record indicates that he has a history of atrial fibrillation, diabetes, hypertension, non-Hodgkin lymphoma, back surgery, prostate problems, hernia repair, partial gastrectomy, cataract, history of pericardial effusion and something to do with his esophagus where he said he has to put a stent in. He indicates that he walks with a cane or with a walker. This is going on for some time. This was his relevant 14-point review of system. PAST MEDICAL HISTORY: Positive for diabetes. FAMILY HISTORY: Negative for early age stroke. SOCIAL HISTORY: He does not drink alcohol or smoke. PHYSICAL EXAMINATION: NEUROLOGICAL: Indicate that this patient is alert, responsive and oriented. He is able to follow simple commands. His speech, concentration, fund of knowledge and memory is at his baseline. His cranial nerve examination 2 through 12 looks unremarkable. He does not have any nystagmus. He moves all 4 extremities. He has generalized weakness. His position sense is intact. His reflexes are diminished. His tone is symmetrical. He does not have any cerebellar sign. I could not have a very good look at the patient's fundus. There is no meningeal sign. GENERAL: He is reasonably well-developed individual who does not have any dysmorphic features of eyes, ears and face. VITAL SIGNS: His blood pressure is 156/84, respiration is 18, pulse is 80 and temperature is 98.3. EXTREMITIES: His pulses are palpable. He has no edema, cyanosis or jaundice. NECK: There is no thyroid mass. HEENT: His hearing and [place] [address] CONSULTATION Name: AYO LOYA Room: [address]#: [id number] Admission: 08/03/18 Attend Phys: Tony Livingston MD Discharge: 08/06/18 Date of : 42 Report #: [id number] CARDIAC: Examination does indicate murmur. RESPIRATORY: Examination does not appear to be showing any significant respiratory difficulty or rhonchi. LABORATORY DATA: He is slightly anemic with a hemoglobin of 10.3. His GFR is normal. His last TSH and vitamin B12 was okay. His blood pressure is running reasonable range and his last one was 156/84 with a temperature of 98.3 and pulse of 80. RADIOLOGICAL DATA: I reviewed his MRI and his MRI really does not show any acute changes. It does show a lot of chronic changes. MRA of the head looks unremarkable. IMPRESSION: It is unlikely that the patient's dizziness was secondary to any neurological etiology. It is more likely secondary to systemic etiologies including ENT or cardiac in this case. Review of his record, it looks like he had a carotid Doppler done in 2012 but has not had one since then. That has shown some mild plaquing. RECOMMENDATIONS: 1. I will get an EEG done. 2. I will get a carotid Doppler done to complete the workup to make sure there is no vertebral artery abnormality there. 3. If that is negative, that will make it even less likely that the patient's symptoms are because of any neurological etiology and I will suggest continue to work him up for any systemic including ENT pathology. Thank you very much for this referral and if you have any question, please feel free to contact me. <ELECTRONICALLY SIGNED> By: Nicolás Sampson MD 08/16/18 1544 1215 2247Nicolás Sampson MD /nt
--- NOTE | 2018-08-16 15:44 | EEG ---
[address] [address] EEG STUDY REPORT Name: YAO LOYA Room: [address]#: [id number] Admission: 08/03/18 Attend Phys: Tony Livingston MD Discharge: 08/06/18 Date of : 42 Report #: [id number] THIS REPORT FOR: //name// CC: Tony Rodriguez [place] DATE OF SERVICE: 08/04/2018 This patient is being evaluated for vertigo. EEG was done by placing the electrode by standard 10-20 system of electrode placement. Both referential and sequential montages were used for recording. Background activity in this patient's EEG is about 10 Hz and 30 microvolt. This patient went to sleep and that is associated with bilaterally symmetrical sleep spindle and vertex sharp waves. Photic stimulation is unremarkable. Throughout the record, no active epileptiform activity was noticed. IMPRESSION: This patient's EEG is unremarkable. <ELECTRONICALLY SIGNED> By: Nicolás Sampson MD 08/16/18 1544 1700 1710Nicolás Sampson MD /nt
== END 2018-08-06 12:40 | disposition home or self-care (01) | DRG 682 ==
LOC: M.ERS 19:29 → M.TBA-ER 22:45 → M.2W 22:45 → M.3W 23:02 → M.2W 08-04 02:43
PROVIDERS: Emergency Medicine; ADMIT Internal Medicine
DX: N17.0 Acute kidney failure with tubular necrosis (principal); E43 Unspecified severe protein-calorie malnutrition; N40.1 Benign prostatic hyperplasia with lower urinary tract symptoms; K59.00 Constipation, unspecified; I12.9 Hypertensive chronic kidney disease with stage 1 through stage 4 chronic kidney disease, or unspecified chronic kidney disease; N18.3 Chronic kidney disease, stage 3 (moderate); D64.9 Anemia, unspecified; I10 Essential (primary) hypertension; R33.8 Other retention of urine; R27.0 Ataxia, unspecified; E11.9 Type 2 diabetes mellitus without complications; I48.91 Unspecified atrial fibrillation; Z98.49 Cataract extraction status, unspecified eye; Z87.440 Personal history of urinary (tract) infections; Z85.72 Personal history of non-Hodgkin lymphomas; Z79.82 Long term (current) use of aspirin; Z91.041 Radiographic dye allergy status; Z88.8 Allergy status to other drugs, medicaments and biological substances; Z87.11 Personal history of peptic ulcer disease; Z68.27 Body mass index [BMI] 27.0-27.9, adult

== ENCOUNTER → 2018-11-14 | Day surgery (SDC) | payer MEDICARE, BC ==
[~2018-11-14] MED LIST changes: +ANTIVERT25 MG PO
--- NOTE | ~2018-11-14 | PROC ---
[address] [place] [address] PROCEDURE REPORT Name: YAO LOYA Room: [facility]#: [id number] Admission: 11/14/18 Attend Phys: Rolando Schreiber DO Discharge: Date of : 42 Report #: [id number] THIS REPORT FOR: //name// For GI report, please see the Provation report in Perceptive 7. By: 0842Medical Records Staff CARRIE /NAZ
[2018-11-14 07:59] LABS: HEMATOCRIT 35.5 % (42.0-52.0); HEMOGLOBIN 11.6 gm/dL (14.0-18.0); MCH 27.8 pg (26.0-34.0); MCHC 32.7 g/dL (28.0-37.0); MCV 85.1 fL (80.0-100.0); MPV 8.4 fl. (7.2-11.1); RBC 4.17 mil/uL (4.50-6.00); RDW-CV 15.5 % (10.5-14.5)
[2018-11-14 08:07] LABS: CALCIUM 9.2 mg/dL (8.5-10.1); CREATININE 1.5 mg/dL (0.6-1.3); POTASSIUM 4.3 mmol/L (3.5-5.1)
[2018-11-14 08:12] LABS: ALBUMIN 3.3 g/dL (3.4-5.0); TOTAL BILIRUBIN 0.5 mg/dL (<0.1-1.0); TOTAL PROTEIN 8.1 g/dL (6.4-8.2)
== END | disposition home or self-care (01) ==
LOC: M.SUR 06:44
PROVIDERS: Internal Medicine Gastroenterology
DX: K22.2 Esophageal obstruction (principal); K44.9 Diaphragmatic hernia without obstruction or gangrene; E11.9 Type 2 diabetes mellitus without complications; K21.9 Gastro-esophageal reflux disease without esophagitis; Z91.041 Radiographic dye allergy status; Z88.8 Allergy status to other drugs, medicaments and biological substances; Z98.890 Other specified postprocedural states; Z85.72 Personal history of non-Hodgkin lymphomas; Z79.899 Other long term (current) drug therapy

== ENCOUNTER → 2019-04-03 | Outpatient (CLI) | payer MEDICARE, BC ==
[2019-04-03 11:40] LABS: ABSOLUTE BASOPHILS 0.1 thou/uL (0.0-0.2); ABSOLUTE LYMPHOCYTES 1.2 thou/uL (0.8-5.3); ABSOLUTE NEUTROPHILS 8.5 thou/uL (1.6-8.1); BASOPHILS 0.6 %; EOSINOPHILS 0.4 %; HEMATOCRIT 35.1 % (42.0-52.0); HEMOGLOBIN 11.7 gm/dL (14.0-18.0); LYMPHOCYTES 10.8 %; MCH 28.8 pg (26.0-34.0); MCHC 33.3 g/dL (28.0-37.0); MCV 86.4 fL (80.0-100.0); MONOCYTES 9.2 %; MPV 8.3 fl. (7.2-11.1); NUCLEATED RBCS 0 /100WBC; PLATELET COUNT* 222 thou/uL (150-400); RBC 4.07 mil/uL (4.50-6.00); RDW-CV 14.7 % (10.5-14.5); WBC 10.7 thou/uL (4.0-11.0)
[2019-04-03 11:48] LABS: CREATININE 1.5 mg/dL (0.6-1.3); MAGNESIUM 2.2 mg/dL (1.8-2.4); PHOSPHORUS* 3.3 mg/dL (2.5-4.9); POTASSIUM 4.5 mmol/L (3.5-5.1)
[2019-04-03 12:40] LABS: CALCIUM 8.6 mg/dL (8.5-10.1); CREATININE 1.5 mg/dL (0.6-1.3); PHOSPHORUS* 3.4 mg/dL (2.5-4.9)
[2019-04-03 21:10] LABS: IgA 273 mg/dL (61-437); IgG 1681 mg/dL (700-1600); IgM 123 mg/dL (15-143)
[2019-04-06 11:06] LABS: KAPPA FREE LIGHT CHAINS 69.7 mg/L (3.3-19.4); LAMBDA FREE LIGHT CHAINS 38.5 mg/L (5.7-26.3)
== END ==
LOC: M.ULTRA 03-31 10:30
PROVIDERS: Internal Medicine
DX: I12.9 Hypertensive chronic kidney disease with stage 1 through stage 4 chronic kidney disease, or unspecified chronic kidney disease (principal); E11.22 Type 2 diabetes mellitus with diabetic chronic kidney disease; N18.3 Chronic kidney disease, stage 3 (moderate); N28.1 Cyst of kidney, acquired

== ENCOUNTER → 2019-05-18 | Outpatient (CLI) | payer MEDICARE, BC ==
[2019-05-18 10:54] LABS: ABSOLUTE EOSINOPHILS 0.1 thou/uL (0.0-0.7); ABSOLUTE LYMPHOCYTES 0.8 thou/uL (0.8-5.3); ABSOLUTE MONOCYTES 0.9 thou/uL (0.0-1.2); ABSOLUTE NEUTROPHILS 8.9 thou/uL (1.6-8.1); BASOPHILS 0.3 %; EOSINOPHILS 0.5 %; HEMATOCRIT 34.3 % (42.0-52.0); HEMOGLOBIN 11.3 gm/dL (14.0-18.0); LYMPHOCYTES 7.5 %; MCV 87.7 fL (80.0-100.0); MONOCYTES 8.8 %; MPV 7.9 fl. (7.2-11.1); NUCLEATED RBCS 0 /100WBC; PLATELET COUNT* 241 thou/uL (150-400); POLYS 82.9 %; RBC 3.91 mil/uL (4.50-6.00); RDW-CV 14.4 % (10.5-14.5); WBC 10.7 thou/uL (4.0-11.0)
[2019-05-18 11:12] LABS: CALCIUM 8.7 mg/dL (8.5-10.1); CREATININE 1.5 mg/dL (0.6-1.3); MAGNESIUM 2.2 mg/dL (1.8-2.4); PHOSPHORUS* 3.7 mg/dL (2.5-4.9); POTASSIUM 5.3 mmol/L (3.5-5.1)
== END ==
LOC: M.LAB 10:25
PROVIDERS: Internal Medicine
DX: N18.3 Chronic kidney disease, stage 3 (moderate) (principal)

== ENCOUNTER 2019-06-23 22:36 | Inpatient (IN) | payer MEDICARE, BC ==
[~2019-06-23] VITALS: Ht 188 cm; Wt 97.8 kg
[~2019-06-23 22:36] MED LIST changes: -LEVEMIR SUBQ; +LEVEMIR100 UNIT/1 SUBQ
[2019-06-23 22:44] VITALS: BP 116/70
[2019-06-23] MEDS ORDERED: ELIQUIS2.5 MG PO (22:51)
[2019-06-23] MEDS ORDERED: VITAMIN D1000 UNI1 PO (22:51)
[2019-06-23] MEDS ORDERED: KLOR-CON M2020 MEQ PO (22:55)
[2019-06-23] MEDS ORDERED: LASIX 40 MG TAB40 M2 PO (22:55)
[2019-06-23 23:48] LABS: HEMATOCRIT 30.2 % (42.0-52.0); MCH 28.4 pg (26.0-34.0); MCHC 33.3 g/dL (28.0-37.0); MCV 85.2 fL (80.0-100.0); MPV 9.2 fl. (7.2-11.1); NUCLEATED RBCS 0 /100WBC; PLATELET COUNT* 204 thou/uL (150-400); RBC 3.54 mil/uL (4.50-6.00); RDW-CV 14.9 % (10.5-14.5); WBC 18.7 thou/uL (4.0-11.0)
[2019-06-23 23:50] LABS: ANION GAP 8 mmol/L (7-16); BUN 39 mg/dL (7-18); CALCIUM 8.4 mg/dL (8.5-10.1); CHLORIDE 106 mmol/L (98-107); CO2 27 mmol/L (21-32); CREATININE 1.5 mg/dL (0.6-1.3); GLUCOSE 155 mg/dL (70-99); POTASSIUM 4.6 mmol/L (3.5-5.1); SODIUM 141 mmol/L (136-145)
[2019-06-23 23:54] LABS: URINE BILIRUBIN NEGATIVE (Negative); URINE BLOOD 3+ (Negative); URINE CLARITY CLOUDY; URINE COLOR YELLOW; URINE GLUCOSE-RANDOM NEGATIVE (Negative); URINE KETONES NEGATIVE (Negative); URINE NITRITE-REFLEX NEGATIVE (Negative); URINE PROTEIN 2+ (Negative); URINE UROBILINOGEN 0.2 E.U./dl (0.2-1.0)
[2019-06-23 23:55] LABS: URINE LEUKOCYTES-REFLEX 2+ (Negative)
[2019-06-24 00:01] LABS: ALBUMIN 2.7 g/dL (3.4-5.0); ALKALINE PHOSPHATASE 153 U/L (46-116); NT-PRO BRAIN NAT PEPTIDE 1689 pg/mL (<300); SGOT 19 U/L (15-37); SGPT 20 U/L (30-65); TOTAL BILIRUBIN 0.5 mg/dL (<0.1-1.0); TOTAL PROTEIN 7.6 g/dL (6.4-8.2); TROPONIN-I LEVEL <0.06 ng/mL (<0.06)
[2019-06-24 00:02] LABS: INR 1.2
[2019-06-24 00:48] LABS: CASTS None Seen /LPF (None Seen); URINE WBC-REFLEX >25 Many /HPF (0-5)
[2019-06-24 00:50] LABS: CRYSTALS None Seen /LPF (None Seen); SQUAMOUS 4-10 Moderate /LPF (0-3); URINE RBC >20 Many /HPF (0-2)
[2019-06-24 01:13] LABS: ABSOLUTE LYMPHOCYTES 0.7 thou/uL (0.8-5.3); ABSOLUTE MONOCYTES 2.1 thou/uL (0.0-1.2); ABSOLUTE NEUTROPHILS 15.9 thou/uL (1.6-8.1); PLATELET ESTIMATE ADEQUATE
[2019-06-24 01:14] LABS: ANISOCYTOSIS 1+
[2019-06-24 02:55] VITALS: BP 135/72
--- NOTE | 2019-06-24 03:30 | NUR ---
PT ADMITTED TO FLOOR PER CART ACCOMPANIED BY ER STAFF WITH BELONGINGS. ASSISTED TO SLIDE FROM CART TO BED. ORIENTED TO ROOM AND CALL LITE. AOX4, CALM. DENIES PAIN AT THIS TIME. HISTORY OBTAINED AND ASSESSMENT PERFORMED, SEE ADMIT NOTES. LAC IVF PLACED ON PUMP FOR INFUSION. CLEAR LIQUID DIET. PT TO HAVE VQ SCAN LATER THIS MORNING. O2 2L SAT 94% BRIEF REMOVED, LLOYD CARE GIVEN. PT VERBALIZES UNDERSTANDING OF STRAIGHT CATH Q6 HOURS, STATES HE DOES IT AT HOME WITHOUT DIFFICULTY. CALL LITE IN EASY REACH, BED ALARM ON FOR SAFETY. WILL CONTINUE TO MONITOR AND PROVIDE CARES NEEDED.
[2019-06-24 03:33] VITALS: BP 131/71
--- NOTE | 2019-06-24 06:36 | NUR ---
PT SLEPT AFTER SETTLING IN AFTER ADMIT. O2 2L. LAC IVF INFUSING PER PUMP. PT VOIDED 200ML YELLOW URINE PER URINAL. STRAIGHT CATH THIS MORNING RETURNED 150ML YELLOW URINE. NO COMPLAINTS OF PAIN. CALL LITE IN EASY REACH, BED ALARM ON FOR SAFETY.
[2019-06-24 08:30] VITALS: BP 108/62
--- NOTE | 2019-06-24 10:34 | EKG ---
[place] [address] ELECTROCARDIOGRAM REPORT Name: YAO LOYA Room: [address] ADM IN .R.#: [id number] Admission: 06/24/19 Attend Phys: Rosales Barrientos MD Discharge: Date of : 42 Report #: [id number] THIS REPORT FOR: //name// [facility] ED Test Date: 2019-06-23 Test Time: 22:47:00 Pat Name: YAO LOYA Department: Room: [facility] Gender: M Marbleizer: : 1940 Requested By: Jaqui Sebastian Order Number: [id number] MD: Esteban Perrin Measurements Intervals [place] Rate: 89 P: 206 NM: 232 QRS: 82 QRSD: 112 T: 7 QT: 346 QTc: 421 Interpretive Statements atrial tachycardia Incomplete right bundle branch block Compared to ECG 08/03/2018 20:01:07 no change Electronically Signed On 06-24-2019 10:34:22 CDT by Esteban Perrin [email or web address] <ELECTRONICALLY SIGNED> By: Esteban Perrin MD, [facility] 06/24/19 1034 2247 2247 Esteban Perrin MD, FAC /EPI
--- NOTE | 2019-06-24 10:35 | EKG ---
[place] [address] ELECTROCARDIOGRAM REPORT Name: YAO LOYA Room: [address] ADM IN M.R.#: [id number] Admission: 06/24/19 Attend Phys: Rosales Barrientos MD Discharge: Date of : 42 Report #: [id number] THIS REPORT FOR: //name// [facility] ED Test Date: 2019-06-23 Test Time: 23:45:39 Pat Name: YAO LOYA Department: Room: [address] Gender: M Cash Person: : 1940 Requested By: Rosales Barrientos Order Number: [id number] Reading MD: Esteban Perrin Measurements Intervals [place] Rate: 87 P: -71 IA: 255 QRS: 81 QRSD: 116 T: 11 QT: 351 QTc: 423 Interpretive Statements atrial tachycardia Incomplete right bundle branch block Electronically Signed On 06-24-2019 10:35:43 CDT by Esteban Perrin [email or web address] <ELECTRONICALLY SIGNED> By: Esteban Perrin MD, [facility] 06/24/19 1035 2345 2345 Esteban Perrin MD, FACC /EPI
--- NOTE | 2019-06-24 11:16 | NUR ---
SW attempted to meet pt to complete initial assessment this morning; pt off of the unit for ultrasound. SW to continue to follow.
[2019-06-24 16:00] VITALS: BP 109/62
--- NOTE | 2019-06-24 17:54 | NUR ---
Patient awake in bed. No signs of distress observed. All safety measures maintained. Patient denies futher needs at this time. Clarified lasix orders with Dr. Girard earlier this shift.
[2019-06-24 20:00] VITALS: BP 132/62
[2019-06-25 04:33] LABS: HEMATOCRIT 29.1 % (42.0-52.0); HEMOGLOBIN 9.5 gm/dL (14.0-18.0); MCH 28.2 pg (26.0-34.0); MCHC 32.5 g/dL (28.0-37.0); MCV 86.7 fL (80.0-100.0); MPV 8.8 fl. (7.2-11.1); RBC 3.36 mil/uL (4.50-6.00); RDW-CV 15.4 % (10.5-14.5); WBC 11.5 thou/uL (4.0-11.0)
[2019-06-25 04:43] LABS: ALBUMIN 2.4 g/dL (3.4-5.0); CALCIUM 8.1 mg/dL (8.5-10.1); CREATININE 1.9 mg/dL (0.6-1.3); POTASSIUM 4.5 mmol/L (3.5-5.1); TOTAL BILIRUBIN 0.3 mg/dL (<0.1-1.0); TOTAL PROTEIN 7.1 g/dL (6.4-8.2)
--- NOTE | 2019-06-25 05:40 | NUR ---
PATIENT SLEPT PART OF THE NIGHT. IV ANTIBIOTICS WERE GIVEN ORDERED. PATIENT REMAINS ON OXYGEN AT 2L PER NASAL CANNULA. PATIENT COMPLAINING OF BEING SHORT OF BREATH AT TIMES BUT OXYGEN SATS WERE FINE. PATIENT STRAIGHT CATHED Q6. WILL CONTINUE TO MONITOR.
[2019-06-25 07:45] VITALS: BP 100/55
--- NOTE | 2019-06-25 17:01 | NUR ---
SW completed initial assessment, pt speaking with spring tacker. Pt lives at home with . Pt has hx of OP at [facility], has RW, cane, bath bench, hospital bed. Pt has hx of HH through [facility]. SW to continue to follow to assist with safe dc planning.
[2019-06-25 17:23] VITALS: BP 99/66
--- NOTE | 2019-06-25 19:02 | NUR ---
PATIENT AWAKE IN BED. ALL SAFETY MEASURES MAINTAINED. NEW ORDERS RECEIVED FROM DR. JORDAN FROM PULMONOLGY. VERIFIED WITH READ BACK. PATIENT UP WITH ASSIST TO COMMODE. PATIENT VOIDING IN URINAL BETWEEN Q6 HOUR STRAIGHT CATH.
[2019-06-25 21:10] VITALS: BP 126/61
--- NOTE | 2019-06-26 04:34 | NUR ---
VITALS STABLE. MEDS GIVEN ORDERED. PO MEDS GIVEN CRUSHED AND MIXED WITH APPLE SAUCE PER PT REQUEST. UP TO THE BEDSIDE COMMODE WITH STANDBY ASSIST. STRAIGHT CATH Q6H, HOURLY ROUNDING COMPLETED. WILL CONTINUE TO MONITOR.
[2019-06-26 06:19] LABS: CALCIUM 8.1 mg/dL (8.5-10.1); CREATININE 1.8 mg/dL (0.6-1.3)
[2019-06-26 07:48] VITALS: BP 124/68
--- NOTE | 2019-06-26 13:43 | 2DMMODE ---
[place] [address] 2 D/M-MODE ECHOCARDIOGRAM Name: YAO LOYA Room: [address] IN [facility]#: [id number] Admission: 06/24/19 Attend Phys: Rosales Barrientos, Discharge: Date of : 42 Date of Service: 06/26/19 1343 Report #: [id number] THIS REPORT FOR: //name// APPROVED REPORT Study performed: 06/26/2019 11:00:44 EXAM: Comprehensive 2D, Doppler, and color-flow Echocardiogram Patient Location: In-Patient Room #: [facility] Status: routine BSA: 2.29 HR: 89 bpm BP: 126/61 mmHg Rhythm: NSR Other Information Study Quality: Good Indications Fever CHF?, Pulmonary edema? 2D Dimensions IVSd: 12.55 (7-11mm) LVOT Diam: 21.66 (18-24mm) LVDd: 39.04 mm PWd: 10.39 (7-11mm) Ascending Ao: 36.16 (22-36mm) LVDs: 30.58 (25-40mm) Aortic Root: 34.61 mm Volumes Left Atrial Volume (Systole) LA ESV Index: 33.60 mL/m2 Aortic Valve AoV Peak Sukhjinder.: 2.35 m/s AO Peak Gr.: 22.03 mmHg LVOT Max P.89 mmHg AO Mean Gr.: 13.28 mmHg LVOT Mean P.98 mmHg LVOT Max V: 0.69 m/s AO V2 VTI: 42.02 cm LVOT Mean V: 0.46 m/s JANEEN (VTI): 1.12 cm2 LVOT V1 VTI: 12.82 cm TDI Lateral E' Sukhjinder.: 0.14 m/[place] [address] 2 D/M-MODE ECHOCARDIOGRAM Name: YAO LOYA Room: [address]#: [id number] Admission: 06/24/19 Attend Phys: Rosales Barrientos, Discharge: Date of : 42 Date of Service: 06/26/19 1343 Report #: [id number] Pulmonary Valve PV Peak Sukhjinder.: 0.87 m/s PV Peak Gr.: 3.04 mmHg Tricuspid Valve RAP Estimate: 10.00 mmHg TR Peak Gr.: 32.44 mmHg RVSP: 42.00 mmHg PA Pressure: 42.00 mmHg Left Ventricle The left ventricle is normal size. There is normal LV segmental wall motion. There is normal left ventricular wall thickness. Left ventricular systolic function is normal. The left ventricular ejection fraction is within the normal range. LVEF is 55-60%. This study is not technically sufficient to allow evaluation of the LV diastolic function. Right Ventricle The right ventricle is normal size. The right ventricular systolic function is normal. Atria Left atrium is mildly dilated. The right atrium size is normal. Aortic Valve Aortic valve leaflets are moderately thickened. No aortic regurgitation is present. Mild aortic stenosis. Mitral Valve There is mitral annular calcification. There is no mitral valve regurgitation noted. No evidence of mitral valve stenosis. Tricuspid Valve The tricuspid valve is normal in structure. Trace tricuspid regurgitation. estimated pa pressure 40 mm Hg Pulmonic Valve The pulmonary valve is normal in structure. Trace pulmonic regurgitation. Great Vessels The aortic root is normal in size. IVC is dilated. Pericardium There is no pericardial effusion. [place] [address] 2 D/M-MODE ECHOCARDIOGRAM Name: YAO LOYA Room: [address] [facility].#: [id number] Admission: 06/24/19 Attend Phys: Rosales Barrientos, Discharge: Date of : 42 Date of Service: 06/26/191342 Report #: [id number] <Conclusion> LVEF is 55-60%. Left atrium is mildly dilated. Mild aortic stenosis. Trace tricuspid regurgitation. estimated pa pressure 40 mm Hg <ELECTRONICALLY SIGNED> By: Esteban Perrin MD, [facility] 06/26/19 1343 42 42 Esteban Perrin MD, FACC /INF
--- NOTE | 2019-06-26 19:00 | NUR ---
PATIENT PLEASANT AND COOPERATIVE THRU SHIFT. UP TO CHAIR FOR MEALS, EATING INDEP. IV SITE NOTED WNL, DRSG CHANGED. FLUIDS INFUSING S/O DIFF. O2 2L/NC. STR CATH DONE AT 12 AND 18 USING ASEPTIC TECHNIQUE, PATIENT APRIL WELL. URINE NOTED YELLOW W/ SED. PATIENT STATES IS DOING HIS OWN STR CATH AT HOME. REVIEW OF POC DONE W/ PATIENT AND SON. MEDS CRUSHED IN APPLESAUCE. USING FWW AND GAIT BELT W/ TRANSFERS AND AMB, NOTED WEAK. RESTING IN BED AT THIS TIME. CALL LIGHT AND PHONE IN REACH. DENIES OTHER NURSING NEEDS.~TJRN
[2019-06-26 19:54] VITALS: BP 136/67
--- NOTE | 2019-06-27 04:36 | NUR ---
PATIENT SLEPT WELL DURING THIS SHIFT. PT DENIES PAIN/NAUSEA. PT WITH FLUIDS/ANTIBIOTICS INFUSING PER DR ORDER. PT VOIDED 450ML OF YELLOW URINE PER URINAL. PT ENCOURAGED TO STRAIGHT CATH HIMSELF SINCE HE IS CAPABLE OF DOING THIS AT HOME. PT SAID HE WOULD BUT SINCE HE JUST VOIDED HE WOULD NOT NEED TO TILL AM. PT ABLE TO MOVE HIMSELF IN BED. PT CURRENTLY SITTING IN RECLINER WITH FEET UP. FREQUENTLY USED ITEMS AND CALL LIGHT WITHIN REACH. WILL CONTINUE TO MONITOR.
[2019-06-27 04:53] LABS: HEMOGLOBIN 8.9 gm/dL (14.0-18.0); MCH 28.4 pg (26.0-34.0); MCV 86.2 fL (80.0-100.0); RBC 3.13 mil/uL (4.50-6.00); RDW-CV 15.2 % (10.5-14.5); WBC 8.3 thou/uL (4.0-11.0)
[2019-06-27 05:22] LABS: CALCIUM 8.3 mg/dL (8.5-10.1); CREATININE 1.7 mg/dL (0.6-1.3); POTASSIUM 4.2 mmol/L (3.5-5.1)
[2019-06-27 07:20] VITALS: BP 108/61
[2019-06-27 16:00] VITALS: BP 115/62
--- NOTE | 2019-06-27 17:18 | NUR ---
ASSUMED CARE AT 1630 FROM AGATHA KEANE. PT IS ALERT AND ORIENTED X4. PT IS RESTING IN BED. VSS. PT IS UP ONE ASSIST, USES CALL LIGHT APPROPRIATELY. PT IS FALL RISK, BED ALARM ON AND CALL LIGHT WITHIN REACH. WILL CONTINUE PLAN OF CARE
[2019-06-27 19:57] VITALS: BP 115/60
--- NOTE | 2019-06-28 05:48 | NUR ---
PATIENT DID NOT REPORT AND PAIN OR NAUSEA. STRAIGHT CATH AT 0000 135ML URINE OUT. HE HAD A SMALL BOWEL MOVEMENT USING BEDSIDE COMMODE. NO REPORT OF WORSENING OF SYMPTOMS. WILL CONTINUE TO MONITOR.
[2019-06-28 07:40] VITALS: BP 133/61
--- NOTE | 2019-06-28 09:30 | NUR ---
PATIENT HAD COMPLAINTS OF CHEST PAIN/PRESSURE THIS AM. STAT EKG ORDERED AND RESULTS MESSAGED TO DR CRAIG. PATIENT ON OXYGEN. NO RESPONSE FROM PHYSICIAN. EKG SHOWN TO NURSING AWS SOLUTION ARCHITECT WHO THEN SHOWED DR MCCARTNEY. ORDERS RECIEVED FOR STAT CPK AND TROPONIN AND CARDIOLOGY CONSULT. PATIENT IS STABLE AT THIS TIME, UP IN CHAIR.
[2019-06-28 12:10] LABS: TROPONIN-I LEVEL <0.06 ng/mL (<0.06)
[2019-06-28 15:46] VITALS: BP 124/61
--- NOTE | 2019-06-28 18:58 | NUR ---
PATIENT RESTING UP IN RECLINER. PATIENT HAD COMPLAINTS OF CHEST PAIN THIS AM PREVIOUSLY DOCUMENTED. PATIENT DENIES ANY PAIN THIS EVENING. PATIENT IS UP STANDBY ASSIST. PATIENT HAD BOWEL MOVEMENT X 1. PATIENT HAS BEEN STRAIGHT CATHED X 2. PATIENT DENIES ANY NEEDS AT THIS TIME. CALL LIGHT WITHIN REACH.
[2019-06-28 21:20] VITALS: BP 129/61
[2019-06-29 04:26] LABS: HEMATOCRIT 28.2 % (42.0-52.0); HEMOGLOBIN 9.1 gm/dL (14.0-18.0); MCHC 32.3 g/dL (28.0-37.0); MCV 86.8 fL (80.0-100.0); MPV 9.3 fl. (7.2-11.1); RBC 3.25 mil/uL (4.50-6.00); RDW-CV 15.2 % (10.5-14.5); WBC 12.9 thou/uL (4.0-11.0)
[2019-06-29 04:43] LABS: ALBUMIN 2.5 g/dL (3.4-5.0); ALKALINE PHOSPHATASE 136 U/L (46-116); ANION GAP 6 mmol/L (7-16); BUN 33 mg/dL (7-18); CALCIUM 8.5 mg/dL (8.5-10.1); CHLORIDE 104 mmol/L (98-107); CO2 29 mmol/L (21-32); CREATININE 1.5 mg/dL (0.6-1.3); GLUCOSE 189 mg/dL (70-99); MAGNESIUM 2.3 mg/dL (1.8-2.4); POTASSIUM 4.7 mmol/L (3.5-5.1); SGOT 21 U/L (15-37); SGPT 29 U/L (30-65); SODIUM 139 mmol/L (136-145); TOTAL BILIRUBIN 0.3 mg/dL (<0.1-1.0); TOTAL PROTEIN 7.2 g/dL (6.4-8.2); TROPONIN-I LEVEL <0.06 ng/mL (<0.06)
--- NOTE | 2019-06-29 05:36 | NUR ---
PATIENT WAS UP IN CHAIR TILL 2300. STRAIGHT CATH 225 ML URINE BEFORE BED AND HE HAD A BOWEL MOVEMENT. REPORTED A HEADACHE BEFORE BED AND I GAVE 650 MG TYLENOL. HE WAS ABLE TO SLEEP THROUGH THE NIGHT AND DID NOT REPORT ANY WORSENING CONDITION OR PAIN. HOURLY ROUNDS MADE, WILL CONTINUE TO MONITOR.
[2019-06-29 08:45] VITALS: BP 124/66
[2019-06-29 15:43] VITALS: BP 130/63
--- NOTE | 2019-06-29 17:25 | NUR ---
PATIENT UP IN CHAIR MOST OF SHIFT, REPOSITIONED. UP TO BSC X 2, BM NOTED. PATIENT CXR SHOWED WORSENING CHF, CARDIOLOGY/NEPHROLOGY/PULMONARY AND DR. CRAIG NOTIFIED. PATIENT PUT ON BID LASIX PUSH, BRAVO PLACED PER NEPHROLOGY. TOTAL OF 950 OUTPUT AFTER LASIX PUSH X 1. PATIENT URINE CLEAR YELLOW AFTER BRAVO PLACEMENT AND BACK TO LIGHT BYRON THIS EVENING. PATIENT PLACED BACK ON CARDIZEM, VITALS HAVE REMAINED STABLE. PATIENT LABORED BREATHING AT TIMES. STATED HE FELT "WHOOZY" LIKE HE WAS "TIRED." STATED HE DID NOT GET MUCH SLEEP LAST NIGHT. IV IRON INFUSED ORDERED. DAILY IV ABX CHANGED TO ROCEPHIN FOR DRUG SENSITIVITY PER DR. CRAIG. PATIENT POOR APPETITE AND PO INTAKE THIS SHIFT, PATIENT PROVIDED WITH ICE WATER AND GLUCERNA AND ENCOURAGED TO DRINK. PATIENT DID TAKE SIPS WHILE NURSE PRESENT.
[2019-06-29 19:50] VITALS: BP 147/66
[2019-06-29 20:55] LABS: BE -3.6 mmol/L (-2 to +3); PO2 90.5 mmHg (75.0-100.0)
[2019-06-29 21:00] LABS: PCO2 82.6 mmHg (35.0-45.0)
[2019-06-29 23:00] VITALS: BP 135/61
[2019-06-29 23:44] LABS: BE 2.6 mmol/L (-2 to +3); PO2 117.1 mmHg (75.0-100.0)
[2019-06-29 23:51] LABS: PCO2 72.4 mmHg (35.0-45.0); pH 7.251 (7.340-7.450)
--- NOTE | 2019-06-30 00:05 | NUR ---
PT SOA AFTER AMBULATING TO BED FROM RECLINER. ON 2L NC. PT ALSO RECIEVED BREATHING TRT PRIOR TO AMBULATING BACK TO BED. PT'S BREATHING WAS LABORED. I I RAISED HOB UP. INCREASED O2 TO 3L PT WAS DESATTING ON 2L. SAT ON 2L WAS 88%. SAT ON 3L WAS 93%. I NOTIFIED RT.NOTIFIED DR PARKER, PUT IN STAT ORDER FOR ABG. PH AND PCO2 WERE CRTICIAL. I NOTIFED DR PARKER OF THE RESULTS. HE PUT IN NEW ORDER FOR BIPAP. ASKED TO NOTIFY PULMONOGY OF UPDATE. I CALLED AND SPOKE WITH DR SIMMONS WHO IS PULMONOLGIST ONCALL WITH THE UPDATES. HE SAID TO WATCH HIM ON BIPAP OVERNIGHT TO SEE HOW HE DOES. HE ALSO WANTED HIM TO BE ON TELEMETRY. I NOTIFIED DR PARKER OF THE UPDATE. SHE PUT IN TELE TRANSFER ORDERS. ROSIN BARREL FILLER UPDATED. REPORT CALLED AND GIVEN TO PANCHO (RN). PT'S UPDATED. PT TRANSFERED TO ROOM 233.
[2019-06-30 00:09] VITALS: BP 127/76
--- NOTE | 2019-06-30 02:17 | NUR ---
PT ARRIVED TO 233 ON BIPAP. LETHARGIC AROUSABLE. O2 SAT 100% TELEMETRY SHOWS SR. ABGS DRAWN AT 2330. STILL CRITICAL BUT IMPROVING. DR SIMMONS PULMONARY NOTIFIED OF RESULTS. NEXT ABG ORDERED FOR 0800.
[2019-06-30 04:44] VITALS: BP 124/73
[2019-06-30 05:19] LABS: ALBUMIN 2.5 g/dL (3.4-5.0); CALCIUM 8.7 mg/dL (8.5-10.1); CREATININE 1.5 mg/dL (0.6-1.3); POTASSIUM 4.9 mmol/L (3.5-5.1); TOTAL BILIRUBIN 0.3 mg/dL (<0.1-1.0)
--- NOTE | 2019-06-30 08:30 | NUR ---
ASSUMED PT CARE AROUND 0700, PT NOTED TO BE RESTING IN BED WEARING BIPAP. VSS, PT SCHEDULE FOR ABG D/T CRITICAL C02, PT WAS PUT ON HIGH VOL NC, PT TOLERATED IT LONG ENOUGH TO EAT BREAKFAST ET TO SOA PT BACK ON BIPAP. WILL CONT HOURLY ROUNDS, ECHO SCHEDULED THIS SHIFT.
[2019-06-30 09:51] LABS: BE 3.9 mmol/L (-2 to +3); PO2 86.3 mmHg (75.0-100.0); pH 7.385 (7.340-7.450)
[2019-06-30 09:54] LABS: PCO2 50.7 mmHg (35.0-45.0)
--- NOTE | 2019-06-30 11:05 | EKG ---
[place] [address] ELECTROCARDIOGRAM REPORT Name: SHALINIYAO W Room: [place] [address] ADM IN M.R.#: [id number] Admission: 06/24/19 Attend Phys: Rosales Barrientos MD Discharge: Date of : 42 Report #: [id number] THIS REPORT FOR: //name// [facility] Test Date: 2019-06-28 Test Time: 07:49:53 Pat Name: YAO LOYA Department: Room: [facility] Gender: M Police Clerk: : 1940 Requested By: Rosales Barrientos Order Number: [id number] Natasha MD: Gordon Tobar Measurements Intervals [place] Rate: 104 P: [place]: QRS: 74 QRSD: 113 T: 3 QT: 326 QTc: 429 Interpretive Statements Atrial fibrillation Incomplete right bundle branch block Low voltage, precordial leads Baseline wander in lead(s) V5 Compared to ECG 06/23/2019 23:45:39 Low QRS voltage now present Ectopic atrial tachycardia, unifocal no longer present Electronically Signed On 06-30-2019 11:05:19 CDT by Gordon Tobar [email or web address] <ELECTRONICALLY SIGNED> By: Gordon Tobar MD, FACC 06/30/19 1105 0749 0749 Gordon Tobar MD, FAC /EPI
[2019-06-30 12:00] VITALS: BP 112/60
--- NOTE | 2019-06-30 14:29 | NUR ---
MET WITH PT AND SPOKE WITH AND SON/BELLA WHO IS DPOA OVER THE PHONE. PT WEAK, TRANSFERRED TO TELEMETRY LAST CAROLINE AND ON BIPAP, ORDERED NOTED TO ARRANGE TRILOGY. SPOKE WITH PT AND , IN AGREEMENT WITH TRILOGY. CALLED AND FAXED REFERRAL TO [facility] TO CHECK COVERAGE. PT LIVES WITH BUT WEAK AT THIS TIME AND REQUIRING INCREASED CARE. STATED SHE CANNOT HAVE PT RETURN HOME IF NOT ABLE TO TRANSFER IN AND OUT OF BED AND CHAIR AND AMBULATE ON HIS OWN. DISCUSSED SNF, SON WOULD LIKE PT CLOSE TO HIM IN [place], WANTED TO HAVE [facility] CHECKED AND IF NOT THERE, THEN [facility]. CALLED AND FAXED INITIAL REFERRAL TO [facility]. WILL FOLLOW [facility] [phone] [place] [phone] FAX [phone]
--- NOTE | 2019-06-30 16:01 | 2DMMODE ---
[place] [address] 2 D/M-MODE ECHOCARDIOGRAM Name: YAO LOYA Ivan Room: [place] [address] [facility]#: [id number] Admission: 06/24/19 Attend Phys: Rosales Barrientos, Discharge: Date of : 42 Date of Service: 06/30/19 1600 Report #: [id number] THIS REPORT FOR: //name// APPROVED REPORT Study performed: 06/30/2019 14:21:51 EXAM: Limited 2D Echocardiogram Patient Location: In-Patient Room #: [facility] Status: routine BSA: 2.29 HR: 92 bpm BP: 124/73 mmHg Rhythm: NSR Other Information Study Quality: Good Indications Dyspnea Echo Enhancing Agent Indication: Rule out Shunt Agent(s) / Amount(s) Used: Agitated Saline 10 cc Comments: Patient has ASD closure device Left Ventricle The left ventricle is normal size. There is normal LV segmental wall motion. There is normal left ventricular wall thickness. The left ventricular systolic function is normal. LVEF is 60-65%. Right Ventricle The right ventricle is normal size. The right ventricular systolic function is normal. Atria Left atrium is mildly dilated. Injection of contrast documented no obvious interatrial shunt. The right atrium size is normal. Aortic Valve Aortic valve leaflets are moderately thickened. Mitral Valve There [place] [address] 2 D/M-MODE ECHOCARDIOGRAM Name: YAO LOYA Room: [address] IN .R.#: [id number] Admission: 06/24/19 Attend Phys: Rosales Barrientos, Discharge: Date of : 42 Date of Service: 06/30/191599 Report #: [id number] Tricuspid Valve The tricuspid valve is normal in structure. Pulmonic Valve The pulmonary valve is normal in structure. Great Vessels The aortic root is normal in size. Pericardium There is no pericardial effusion. Left pleural effusion. <Conclusion> The left ventricle is normal size. There is normal left ventricular wall thickness. The left ventricular systolic function is normal. LVEF is 60-65%. Left atrium is mildly dilated. Aortic valve leaflets are moderately thickened. Left pleural effusion. Injection of contrast documented no obvious interatrial shunt. <ELECTRONICALLY SIGNED> By: Gordon Tobar MD, FACC 06/30/191599 99 99 Gordon Tobar MD, FACC /INF
--- NOTE | 2019-06-30 19:33 | NUR ---
PT HAD A DROP IN BS AROUND 4PM, BS 55, SHE WAS GIVEN OJ AND CRACKERS. RECHECKED 15 MINS AND NOTED TO BE 77. PT ATE MOST HER DINNER. PT HAD A LARGE BM. PT HAD STABLE TEMP UNTIL AROUND 4 PM ET IT WAS NOTED TO BE 101.2. GAVE 650 MG, TEMP RETURNED TO 98.4. PT REMAINS COMPLIANT TO NURSING CARE.
--- NOTE | 2019-06-30 19:55 | NUR ---
PT REMAINED ON BIPAP THIS SHIFT WITH THE EXCEPTION OF MEALS. ECHOGRAM HAD NO SIGNIFICATE FINDINGS. PT LETHARGIC THIS SHIFT. REMAINED SR ON THE MUTUEL DEPARTMENT MANAGER. PT DENIES PAIN. PT PLEASANT. CATH MAINTAINED PATENCY. MEDS GIVEN PER DR SANCHEZ
[2019-06-30 20:00] VITALS: BP 139/55
[2019-06-30 23:53] VITALS: BP 119/68
[2019-07-01] VITALS (12 sets, daily range): BP systolic 88–128; BP diastolic 58–84
[2019-07-01 05:02] LABS: HEMOGLOBIN 8.4 gm/dL (14.0-18.0); MCH 27.8 pg (26.0-34.0); MCHC 32.5 g/dL (28.0-37.0); MCV 85.5 fL (80.0-100.0); RBC 3.03 mil/uL (4.50-6.00); RDW-CV 15.1 % (10.5-14.5); WBC 16.1 thou/uL (4.0-11.0)
[2019-07-01 05:27] LABS: CALCIUM 8.4 mg/dL (8.5-10.1); CREATININE 1.9 mg/dL (0.6-1.3); MAGNESIUM 2.3 mg/dL (1.8-2.4); POTASSIUM 4.6 mmol/L (3.5-5.1)
--- NOTE | 2019-07-01 05:29 | NUR ---
PT ALERT AND ORIENTED. VSS ON BIPAP. ASSESSMENT DOCUMENTED. PO MEDS GIVEN IN APPLESAUCE CRUSHED. IV GIVEN PER EMAR. Q2 TURN. PT SLEPT MOST OF SHIFT. FALL PRECAUTION IN PLACE. CALL LIGHT WITHIN REACH. HOURLY ROUNDINGS MADE. WILL CONTINUE TO MONITOR.
--- NOTE | 2019-07-01 08:30 | NUR ---
ASSUMED PT CARE AROUND 0700. PT WAS NOTED TO BE RESTING IN BED WITH HIS BIPAP ON. PT VVS, SR ON THE MONITOR. PLACED PT ON NC TO TAKE MEDS ET PREPARE FOR BREAKFAST. PT ATE 90% OF BRKFAST. PT ASSISTED BACK ON BIPAP. WILL CONT HOURLY ROUNDS THIS SHIFT.
--- NOTE | 2019-07-01 08:41 | CON ---
[address] [address] CONSULTATION Name: YAO LOYA Room: [address] IN .R.#: [id number] Admission: 06/24/19 Attend Phys: Rosales Barrientos MD Discharge: Date of : 42 Report #: [id number] THIS REPORT FOR: //name// CC: Rosales Almaraz DATE OF SERVICE: 06/25/2019 PULMONARY CONSULT NOTE REASON FOR CONSULTATION: Pneumonia versus pulmonary embolism. PHYSICIAN REQUESTING CONSULTATION: Dr. Caren Girard HISTORY OF PRESENT ILLNESS: The patient is a 79-year-old gentleman with past medical history that is significant for history of chronic kidney disease, atrial fibrillation on anticoagulation, diabetes mellitus, hypertension and history of prostate hyperplasia. The patient presented to the Emergency Department with a history of progressive dyspnea and fatigue. The patient also reported history of abdominal bloating that has been going on for the last 1 week. Per history, the patient reported that he had a fever of 101 at home. The patient denies chills. He was also feeling unwell generally. The patient reported fatigue associated with it. He has a history of dyspnea on exertion that has been going on for the last 2 weeks. He has cough for the same period of time. This is mostly dry and nonproductive. The patient has a history of COPD or asthma. He is not maintained on any bronchodilators. The patient has a chronic prostatic hyperplasia and he has been using the straight cathing at home 3 times per day. He denies dysuria or urinary frequency. However, in the Emergency Department, the patient was found to be in acute on chronic renal failure and was found to have pulmonary infiltrate and edema and evidence of urinary tract infection. The patient was admitted and was started on empiric antibiotics and he was started on 2 liters of oxygen. He is also maintained on diuretics and we were consulted to further evaluate his pulmonary status. REVIEW OF SYSTEMS: Positive as described above for cough, dyspnea, [place] [address] CONSULTATION Name: YAO LOYA Ivan Room: [place] [address] ADM IN [facility].#: [id number] Admission: 06/24/19 Attend Phys: Rosales Barrientos MD Discharge: Date of : 42 Report #: [id number] generalized abdominal bloating and decreased appetite. Remaining 10-point review of system was obtained, otherwise negative except for mentioned above in the history of present illness. PAST MEDICAL AND SURGICAL HISTORY: As follows: Hypertension, type 2 diabetes mellitus, atrial fibrillation, history of non-Hodgkin lymphoma, on anticoagulation, back surgery, prostate surgery, umbilical hernia repair, partial gastrectomy, cataract surgery and history of hemodialysis due to acute tubular necrosis in the past and history of esophageal stents. FAMILY HISTORY: Positive for coronary artery disease in his parents. No history of lung disease otherwise. 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 He denies any alcohol or illicit drug use. The patient is a lifetime nonsmoker. PHYSICAL EXAMINATION: VITAL SIGNS: Temperature 37.1, heart rate 92, respiratory rate 17, blood pressure 100/55 and oxygen saturation was 97% with 2 liters nasal cannula oxygen. GENERAL: Showed an elderly gentleman who is not in apparent distress who is conscious, oriented x 3. HEENT: Showed atraumatic. NECK: Supple. Pupils are round, reactive to light and accommodation. No JVD, thyromegaly or cervical lymphadenopathy. CARDIOVASCULAR: Regular rhythm. No murmur. CHEST: Chest examination showed decreased air entry bilaterally with bronchial breathing and bibasilar crackles. ABDOMEN: Soft, lax, nontender. Lower limb examination showed 2+ edema of the lower limbs bilaterally with no clubbing or cyanosis. LABORATORY DATA: His investigations were as follows: WBC count of 15.7, hemoglobin of 10.0 and platelets of 204. Urinalysis was positive for more than 25 wbc's as well as blood, leukocyte esterase and bacteria as well as blood cultures are negative so far. His urine culture is pending. His admission chest x-ray showed evidence of cardiomegaly with pleural effusion and areas of atelectasis and infiltrate. ASSESSMENT: 1. Community-acquired pneumonia. 2. Pulmonary edema. 3. Pleural effusion. 4. Atelectasis. 5. Urinary tract infection. 6. [place] [address] CONSULTATION Name: YAO LOYA Room: [address] IN [facility]#: [id number] Admission: 06/24/19 Attend Phys: Rosales Barrientos MD Discharge: Date of : 42 Report #: [id number] 7. Acute on chronic kidney injury. 8. History of atrial fibrillation. PLAN: The patient's presentation is suggestive of community-acquired pneumonia with a superimposed picture of pulmonary edema/pleural effusion and pulmonary congestion. My previous probability for pulmonary embolism is low, especially that he has given the fact that he is already on anticoagulation at home with apixaban. This makes pulmonary embolism, even less likely. I will send for sputum culture and I agree with empiric antibiotic coverage with Levaquin and Zosyn at this time. There is no evidence of hypoxia and vital signs that is documented. I asked the RN service and his nurse to titrate oxygen as needed to keep saturation above 90%. I agree with diuresis per primary team. I will consult Nephrology given his acute on chronic kidney injury. I will also get 2D echo to evaluate his cardiac function. His BNP is elevated, but he again have acute on chronic renal failure. Close monitoring of his vital signs and kidney function. We will start the patient on incentive spirometer and I recommended mobilization as tolerated. The patient will need followup chest x-ray in order to ensure resolution down the line. Thank you for giving us the opportunity to participate in the management of this patient. <ELECTRONICALLY SIGNED> By: Erica Holguin MD 07/01/19 0841 1719 1929Ammar Keith Holguin MD /nt
--- NOTE | 2019-07-01 11:02 | NUR ---
CONTINUE TO FOLLOW, SPOKE WITH SON, HE ASKED THAT CM CHECK [facility] IN [place] AFTER HE TALKED WITH HIS MOM. CALL TO [facility], THEY DO NOT ACCEPT PTS ON TRILOGY AND IF ON BIPAP, THEY HAVE TO BRING THEIR OWN. WILL NOT BE OPTION FOR PT. SPOKE WITH [facility], SHE ASKED FOR ADD'L DOCUMENTATION TO QUALIFY FOR TRILOGY. DISCUSSED WITH AND HE ASKED THAT ALTERNATE DME BE CHECKED RE: QUALIFIERS. CALL AND FAX TO [facility]. PT DOES QUALIFY FOR TRILOGY AND UPDATED DR WITH INFO. WILL ARRANGE CLOSER TO DC. PT TO HAVE PROCEDURE AND TRSF TO ICU TODAY. UPDATED SON BY PHONE
--- NOTE | 2019-07-01 16:51 | NUR ---
PT WAS SR WITH SOME A-FLUTTER WAVES THIS SHIFT. VSS, ALL MEDS WERE GIVEN PER DR ORDER. D/T PT CONDITION THE PT WAS TRANSFERRED TO ICU FOR CLOSER MONITORING. PT HAD ALL HIS BELONGS WITH HIM. PT WAS A/OX4 ET UNDERSTANDS THAT HE IS MOVING TO ICU. PT'S SPOUSE ACCOMPANIED HIM.
--- NOTE | 2019-07-01 18:47 | NUR ---
PATIENT TRNSFERED FROM TELE ALERT TAKING PO ON BIPAP. GIVEN TYLENOL.CO HEADACHE.
[2019-07-02] VITALS (75 sets, daily range): BP systolic 85–136; BP diastolic 45–82
[2019-07-02 03:41] LABS: HEMATOCRIT 27.1 % (42.0-52.0); HEMOGLOBIN 8.8 gm/dL (14.0-18.0); MCH 27.8 pg (26.0-34.0); MCHC 32.4 g/dL (28.0-37.0); MCV 85.8 fL (80.0-100.0); MPV 8.6 fl. (7.2-11.1); RBC 3.16 mil/uL (4.50-6.00); RDW-CV 15.1 % (10.5-14.5); WBC 19.8 thou/uL (4.0-11.0)
[2019-07-02 03:50] LABS: CALCIUM 9.4 mg/dL (8.5-10.1); CREATININE 2.1 mg/dL (0.6-1.3); MAGNESIUM 2.5 mg/dL (1.8-2.4); POTASSIUM 4.1 mmol/L (3.5-5.1)
[2019-07-02 06:09] LABS: BE 6.3 mmol/L (-2 to +3); PO2 101.8 mmHg (75.0-100.0); pH 7.419 (7.340-7.450)
[2019-07-02 06:10] LABS: PCO2 50.4 mmHg (35.0-45.0)
--- NOTE | 2019-07-02 06:43 | NUR ---
ASSESSMENTS CHARTED. PATIENT ON BIPAP FOR THE DURATION OF THE SHIFT. FAMILY AT BEDSIDE AT START OF SHIFT, STATES INTENT TO RETURN IN MORNING. TURNS Q2H. STARTED 2 IV'S PER ICU PROTOCOL, REMOVED LAC IV THAT CLOTTED OFF. PATIENT HAD 2 LARGE BM'S DURING SHIFT. STILL DIURESING, 775 OUT FROM BRAVO. PATIENT SCHEDULED TO HAVE 2 VIEW CHEST XRAY AND THORACENTESIS IN AM. [facility].
--- NOTE | 2019-07-02 10:55 | NUR ---
ICU rounds: BP down. Tolerating NC, Pt needing to be switched back and forth between bipap and 3L. Parikh in place. Thoracentesis today. Lasix gtt. Following.
--- NOTE | 2019-07-02 12:15 | NUR ---
Nutrition: Pt admitted with UTI, weakness. To have thoracentesis. Soft/fiber restricted diet ordered, eating 75%. +BM. Wt: 246#. On <1800mL fluid restriction. Labs, meds, Hx noted. Assessed for LOS. Pt appears nutritionally stable at this time. Consider low nutrition risk.
[2019-07-02 13:49] LABS: BF RBC 551720 /mm3; TOTAL CELL COUNT 1330 /mm3
[2019-07-02 14:16] LABS: CLARITY TURBID; SOURCE PLEURAL FLUID; TOTAL VOLUME 1010 ml
[2019-07-02 14:19] LABS: BF LYMPHOCYTES 58 %; BF MONOCYTES 2 %; BF POLYS 40 %; BF TISSUE 30 /100 WBC
--- NOTE | 2019-07-02 18:37 | NUR ---
PATIENT PROGRESSING WELL TOWARDS GOALS. ABLE TO BE OFF BIPAP THROUGHOUT MOST OF THIS SHIFT AND ON 3 LITERS. STARTED LASIX GTT AND PATIENT DIUREISED 1500 IN LAST 11 HOURS. THOROCENTESIS COMPLETED ON RIGHT SIDE TODAY, TOOK OFF 1010ML. ORDERS IN TO PERFROM LEFT SIDE THOROCENTESIS TOMORROW PER PULMONARY. PATIENT HAS SLIGHT HEADACHE, TYLEONL GIVEN WITH RELIEF BUT HEADACHE STARTING AGAIN, WILL GIVE NEXT DOSE OF TYLENOL WHEN DUE. Q2H TURNS FOR SKIN INTEGRITY, ALL QUESTIONS ANSWERED. NO NAUSEA OR SHORTNESS OF AIR. BED IN LOWEST POSITON, CALL LIGHT IN REACH, DATA COLLECTION TECHNICIAN IN PLACE.
[2019-07-03] VITALS (32 sets, daily range): BP systolic 94–116; BP diastolic 51–74
[2019-07-03 03:41] LABS: HEMATOCRIT 28.4 % (42.0-52.0); HEMOGLOBIN 9.2 gm/dL (14.0-18.0); MCH 27.9 pg (26.0-34.0); MCHC 32.4 g/dL (28.0-37.0); MPV 8.7 fl. (7.2-11.1); NUCLEATED RBCS 0 /100WBC; PLATELET COUNT* 249 thou/uL (150-400); RDW-CV 15.6 % (10.5-14.5); WBC 18.3 thou/uL (4.0-11.0)
[2019-07-03 03:54] LABS: ALBUMIN 2.6 g/dL (3.4-5.0); CREATININE 2.4 mg/dL (0.6-1.3); POTASSIUM 3.3 mmol/L (3.5-5.1); TOTAL BILIRUBIN 0.5 mg/dL (<0.1-1.0); TOTAL PROTEIN 6.9 g/dL (6.4-8.2)
[2019-07-03 03:56] LABS: ABSOLUTE LYMPHOCYTES 0.4 thou/uL (0.8-5.3); ABSOLUTE MONOCYTES 0.4 thou/uL (0.0-1.2); ABSOLUTE NEUTROPHILS 17.6 thou/uL (1.6-8.1); PLATELET ESTIMATE ADEQUATE
[2019-07-03 03:57] LABS: ANISOCYTOSIS 1+; OVALOCYTES Occasional; POLYCHROMASIA Occasional
[2019-07-03 05:45] LABS: BE 7.2 mmol/L (-2 to +3); PCO2 44.3 mmHg (35.0-45.0); PO2 90.6 mmHg (75.0-100.0); pH 7.471 (7.340-7.450)
--- NOTE | 2019-07-03 06:45 | NUR ---
ASSESSMENTS CHARTED. PATIENT ON BIPAP/AVAPS THROUGH THE NIGHT AFTER 2300. PATIENT REPORTS BEING ABLE TO BREATHE EASIER AFTER THORACENTESIS PROCEDURE. DRESSING OVER SITE INTACT, NO SIGNS OF BLEEDING AND PATIENT SHOWS NO SIGNS OF RESPIRATORY DISTRESS FROM PROCEDURE. LEFT SIDED THORACENTESIS SCHEDULED FOR DAY SHIFT. LASIX GTT STILL INFUSING AT 10ML/HR. POTASSIUM FROM AM LABS CAME BACK LOW, STARTED POTASSIUM INFUSION. PATIENT UNABLE TO TOLERATE BURNING FROM INFUSION AT 10, DROPPED RATE TO 5/HR. PATIENT EXPERIENCED NEW ONSET OF CHEST PAIN COUPLED WITH MODERATE RESPIRATORY DISTRESS IN AM. STAT EKG PERFORMED AND RETURNED UNREMARKABLE. VSS. WCTM.
[2019-07-03 10:14] LABS: MYCOPLASMA PNEUMONIA IgG 595 U/mL (0-99); MYCOPLASMA PNEUMONIA IgM <770 U/mL (0-769)
--- NOTE | 2019-07-03 10:15 | NUR ---
ICU rounds: Pt breathing better today. Had thora on the right side yesterday, plans to have thora on the left side today. CXR better. After left thora complete, plans to have 2 view xray. Sepsis positive on Zosyn. Continue on lasix gtt at 5. Per nurse, Pt mentioned wanting to do skilled at a facility in [place], [place]. Following.
[2019-07-03 16:06] LABS: BODY FLUID LDH 340 IU/L (()); BODY FLUID PROTEIN 3.6 g/dL (())
--- NOTE | 2019-07-03 18:56 | NUR ---
this narrative writer assumed care of pt at 0700 after receiving shift report. pt progressed toward goals had L thoracentesis at 1330 removing 1.2L pt stated he could instantly breath better. x-ray completed after procedure no fluid shown. bed side swallow study done no isses speech consulted soft fiber restricted diet no longer NPO. son in room mom and son updated through the day
[2019-07-04] VITALS (24 sets, daily range): BP systolic 77–106; BP diastolic 47–72
[2019-07-04 04:14] LABS: HEMATOCRIT 30.3 % (42.0-52.0); HEMOGLOBIN 9.9 gm/dL (14.0-18.0); MCH 28.1 pg (26.0-34.0); MCHC 32.6 g/dL (28.0-37.0); MCV 86.1 fL (80.0-100.0); MPV 8.8 fl. (7.2-11.1); RBC 3.52 mil/uL (4.50-6.00); RDW-CV 15.8 % (10.5-14.5); WBC 17.1 thou/uL (4.0-11.0)
[2019-07-04 04:31] LABS: ALBUMIN 2.5 g/dL (3.4-5.0); CALCIUM 8.9 mg/dL (8.5-10.1); CREATININE 2.7 mg/dL (0.6-1.3); POTASSIUM 3.4 mmol/L (3.5-5.1); TOTAL BILIRUBIN 0.6 mg/dL (<0.1-1.0)
[2019-07-04 05:17] LABS: PCO2 46.1 mmHg (35.0-45.0); PO2 92.6 mmHg (75.0-100.0); pH 7.469 (7.340-7.450)
--- NOTE | 2019-07-04 06:57 | NUR ---
ASSESSMENTS CHARTED. VSS. PATIENT PROGRESSING TOWARD GOALS. PATIENT HAS BEEN OFF BIPAP ALL SHIFT, SHOWING NO SIGNS OF RESPIRATORY DISTRESS. LAB WORK, O2 SAT, AND RR STABLE. FAMILY CALLED FOR STATUS UPDATE. PATIENT REPORTS FEELING "LIKE BREATHING IS SO MUCH EASIER" AFTER THORACENTESIS PROCEDURES. LASIX GTT RUNNING AT 5 MG/HR, BRAVO DRAINING APPROPRIATELY. WCTM.
--- NOTE | 2019-07-04 14:20 | EKG ---
[place] [address] ELECTROCARDIOGRAM REPORT Name: YAO LOYA Room: [address] ADM IN M.R.#: [id number] Admission: 06/24/19 Attend Phys: Rosales Barrientos MD Discharge: Date of : 42 Report #: [id number] THIS REPORT FOR: //name// [facility] Test Date: 2019-07-03 Test Time: 05:14:39 Pat Name: YAO LOYA Department: Room: [address] Gender: M Forging Roll Operator: NOHEMY : 1940 Requested By: Dereje Mcdonough Order Number: [id number] Reading MD: Shon Montaño Measurements Intervals [place] Rate: 80 P: [place]: QRS: 53 QRSD: 119 T: 5 QT: 370 QTc: 427 Interpretive Statements Atrial fibrillation Incomplete right bundle branch block ST elevation, consider anterolateral injury Compared to ECG 06/28/2019 07:49:53 ST (T wave) deviation now present Myocardial infarct finding now present Electronically Signed On 07-04-2019 14:20:32 CDT by Shon Montaño [email or web address] <ELECTRONICALLY SIGNED> By: Harvey Montaño MD, [facility] 07/04/19 1420 0514 Harvey Montaño MD, [facility] /EPI
[2019-07-04 17:02] LABS: SOURCE THORACENTESIS
--- NOTE | 2019-07-04 18:18 | NUR ---
PT A&O X4. LASIX DRIP DC'd PER NEPHROLOGY. POTASSIUM SUPPLEMENT 40 MEQ PO ONCE PER NEPHRO. PT SAT IN A RECLINER FOR 3 HOURS, UP WITH MODERATE ASSIST. PARTIAL BATH PROVIDED. TOLERATING SOFT DIET. SMALL BM THIS SHIFT. URINE OUTPUT SATISFACTORY. VSS. O2 SUPPORT WITH NC 2L/MIN, BiPAP NOT REQUIRED. HELPED WITH Q2 TURNS.
[2019-07-05] VITALS (11 sets, daily range): BP systolic 87–115; BP diastolic 52–64
[2019-07-05 04:06] LABS: ABSOLUTE BASOPHILS 0.1 thou/uL (0.0-0.2); ABSOLUTE LYMPHOCYTES 0.2 thou/uL (0.8-5.3); ABSOLUTE MONOCYTES 0.9 thou/uL (0.0-1.2); ABSOLUTE NEUTROPHILS 18.5 thou/uL (1.6-8.1); BASOPHILS 0.4 %; HEMATOCRIT 29.8 % (42.0-52.0); HEMOGLOBIN 9.6 gm/dL (14.0-18.0); LYMPHOCYTES 0.9 %; MCHC 32.1 g/dL (28.0-37.0); MONOCYTES 4.5 %; MPV 8.6 fl. (7.2-11.1); NUCLEATED RBCS 0 /100WBC; PLATELET COUNT* 236 thou/uL (150-400); POLYS 94.2 %; RBC 3.42 mil/uL (4.50-6.00); RDW-CV 15.9 % (10.5-14.5); WBC 19.6 thou/uL (4.0-11.0)
[2019-07-05 04:43] LABS: PREALBUMIN 21.7 mg/dL (18.0-35.7)
[2019-07-05 04:55] LABS: CALCIUM 8.7 mg/dL (8.5-10.1); CREATININE 2.9 mg/dL (0.6-1.3); MAGNESIUM 2.7 mg/dL (1.8-2.4); POTASSIUM 3.9 mmol/L (3.5-5.1)
--- NOTE | 2019-07-05 06:59 | NUR ---
VSS. PT C/O BACK PAIN 03/02 THIS AM, PRN TYLENOL GIVEN ORDERED. PT HAS DENIES SOA THIS SHIFT. BIPAP NOT REQUIRED DURING THE NIGHT. SSI ADVANCED TO VERY HIGH DOSE PER PROTOCOL. DOWNGRADED TO TELE THIS AM, REPORT CALLED TO LAKHWINDER PRESCOTT, ON 2EAST. TO TRANSFER TO ROOM 230 AFTER SHIFT CHANGE. PT HAS BEEN TURNED Q2HR THROUGHOUT THE SHIFT. CALL LIGHT WITHIN REACH.
--- NOTE | 2019-07-05 12:03 | NUR ---
PT TRANSFERRED TO ROOM 230 VIA BED FROM ICU AT APPROXIMATELY 0800. REPORT RECEIVED FROM LAKHWINDER PRESCOTT. PT A&0X4, DENIES ANY PAIN OR SHORTNESS OF BREATH AT THIS TIME. PT STATES HE WAS GIVEN TYLENOL THIS AM FOR HIS BACK AND IT HELPED. TRACING AFIB ON THE HIGH MAN. RATE IN THE 90'S. ON 2L NC SAT 95%. +1 EDEMA NOTED TO BILATERAL LE'S. BRAVO TO DEPENDENT DRAINAGE WITH YELLOW URINE. PT UP WITH 1-2 ASSIST TO BSC. PT SCREENED POSITIVE FOR SEPSIS THIS AM. DR MAHONEY NOTIFIED. NO NEW ORDERS RECEIVED AT THIS TIME. PT BLOOD PRESSURE 90'S/50'S. PULMONARY HERE TO SEE PT AND REQUESTING PLEURAL FLUID GLUCOSE RESULTS. LAB NOTIFIED AND NOTIFIED [facility]- RESULTS SHOULD BE IN TODAY OR TOMORROW PER LUIS ARMANDO FROM THE LAB. AM ASSESSMENT CHARTED. MEDICATIONS CRUSHED IN APPLESAUCE PER EMAR. PT REPOSITIONED EVERY 2 HOURS FOR COMFORT. HOURLY ROUNDING OBSERVED. BED IN LOW POSITION. BED ALARM IN PLACE. FALL PRECAUTIONS IN PLACE. CALL LIGHT WITHIN REACH. WILL CONTINUE PLAN OF CARE.
--- NOTE | 2019-07-05 17:21 | CON ---
[address] [address] CONSULTATION Name: YAO LOYA Room: [address] IN ..#: [id number] Admission: 06/24/19 Attend Phys: Rosales Barrientos MD Discharge: Date of : 42 Report #: [id number] THIS REPORT FOR: //name// CC: Rosales Almaraz DATE OF SERVICE: 07/04/2019 CONSULTATION: Infectious diseases. HISTORY OF PRESENT ILLNESS: Adriano Loya is a 79-year-old white male who comes to [facility] on 07/02/2019 complaining of bloating and increased edema. He is noted to have low-grade fever with leukocytosis. Urinalysis suggests infection with multidrug resistant Proteus. The patient had chronic infiltrates and developed significant effusions requiring thoracentesis. The patient continues to be ill in the hospital 10 days after admission. Infectious disease consultation was requested. The patient has a complex history. 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 He had radiation therapy to the chest and back. He has developed gastric ulcers and esophageal strictures, probably from the radiation and possibly the surgery. He has chronic esophageal stricture. He has had attempt at stenting, which failed. He has intermittent dilatations and does apparently have a history of aspiration. Other diagnoses include diabetes, hypertension, and chronic renal insufficiency. He has heart disease including atrial flutter, bradycardias, and heart failure. He has had an ablation as well as a Watchman procedure on the atria. He is felt to be high risk for anticoagulation because of falls. The patient has chronic prostatic hypertrophy and has had a prostatectomy, but has had regrowth and now requires intermittent catheterization or Parikh catheter for micturition. FAMILY HISTORY: Noncontributory. SOCIAL HISTORY: The patient is . 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 Does not use tobacco, alcohol, or drugs. REVIEW OF SYSTEMS: The patient says he is feeling pretty good now. He notes weakness from being in the hospital for 10 days. He is not complaining of fevers, chills, or sweats. He has a little bit of a headache. No sinus congestion or drainage. No cognitive dysfunction. The patient has a minimal dry cough, seldom productive of sputum. He denies shortness of breath, but is on oxygen currently, which is not typical. He is unaware of angina, syncope, or palpitations. The patient denies nausea, vomiting, diarrhea, constipation, or abdominal pain. He has a Parikh catheter. No urinary complaints. No [place] [address] CONSULTATION Name: YAO LOYA Room: [address] IN [facility].#: [id number] Admission: 06/24/19 Attend Phys: Rosales Barrientos MD Discharge: Date of : 41 Report #: [id number] PHYSICAL EXAMINATION: GENERAL: The patient appears his stated age, alert, oriented, comfortable, not in any distress. VITAL SIGNS: Normal. The patient has been afebrile now for several days. Blood pressure 101/62. SKIN: Shows no rash or lesion. ENT: Negative. NEUROLOGIC: The patient is awake, oriented, and cogent. CARDIOVASCULAR: Heart sounds are regular S1, S2. LUNGS: Clear to anterior and posterior auscultation. ABDOMEN: Belly is soft, nontender without mass or organomegaly. EXTREMITIES: Unremarkable with trace edema. LABORATORY DATA: White count is still elevated at 17.1, hemoglobin 9.9, hematocrit 30%, and platelets 256,000. Electrolytes are normal. BUN 108. Creatinine has gone from 1.5 to 2.7 with intensive diuresis. A thoracentesis done on 07/02 had 550,000 red cells. I did not see a white cell count. Cultures are pending. Thoracentesis on the other side was done today and all those results are pending. The microbiology laboratory reports urine grew Proteus, which was resistant to all the oral antibiotics as well as gentamicin, but was susceptible to second and third-generation cephalosporins, Zosyn, and meropenem. A sputum was obtained a few days ago and Gram stain shows yeast and Gram-positive cocci. The cultures are currently pending. The blood cultures from admission are negative. ASSESSMENT AND PLAN: In summary, the patient with chronic esophageal stricture had a history of aspiration. He has infiltrates and effusions which appear to be bloody. He was developing increasing dyspnea, which has improved with the thoracentesis. He has developed renal insufficiency, probably associated with intensive diuretic therapy for the pleural effusions. From Infectious Disease perspective, I suspect the most likely issue here is aspiration pneumonia with parapneumonic effusions. Zosyn should be excellent coverage for community-acquired pneumonia with coverage for anaerobes of aspiration. This also covers the resistant bacteria in the urine. This is unlikely to be an atypical pneumonia-like legionella, mycoplasma, chlamydia, etc. I suggest that we discontinue the azithromycin. The patient was started on oral cefuroxime in spite of being on Zosyn. We can discontinue the cefuroxime and continue just with Zosyn. I would like to check urinary antigens for legionella and pneumococcus as well as inflammatory markers such as elevated CRP or lactate. We will await results of the sputum and thoracentesis cultures, which may help direct further antibiotic therapy. Continue supportive therapy. The patient may need some hydration because of the rising creatinine. He has become rather debilitated during this hospitalization [place] [address] CONSULTATION Name: YAO LOYA Room: [address] IN [facility].#: [id number] Admission: 06/24/19 Attend Phys: Rosales Barrientos MD Discharge: Date of : 41 Report #: [id number] rehabilitation. I appreciate the opportunity to participate in the care of the patient. I will be happy to follow him through the weekend until Dr. Foote returns on Saturday. Thank you for this consultation. <ELECTRONICALLY SIGNED> By: Ricardo Trinidad MD 07/05/19 1721 1210 [id number] Trinidad MD /nt
--- NOTE | 2019-07-05 17:30 | NUR ---
NO ACUTE CHANGES THROUGHOUT SHIFT. REFER TO CHARTING. PT TO HAVE REPEAT CXR IN AM. DENIES ANY PAIN OR SHORTNESS OF BREATH THROUGHOUT AFTERNOON. PT CALLED THROUGHOUT SHIFT AND UPDATED ON CURRENT PLAN OF CARE. BRAVO TO DEPENDENT DRAINAGE. CONTINUES TO TRACE AFIB ON THE TALENT ACQUISITION ADMINISTRATOR. ON 2L NC SAT UPPER 90'S. MEDICATIONS PER NOV. PT REPOSITIONED EVERY 2 HOURS FOR COMFORT. HOURLY ROUNDING OBSERVED. BED IN LOW POSITION. BED ALARM IN PLACE. FALL PRECAUTIONS IN PLACE. CALL LIGHT WITHIN REACH. WILL CONTINUE PLAN OF CARE.
[2019-07-06] VITALS: BP 111/63
[2019-07-06 04:00] VITALS: BP 99/51
--- NOTE | 2019-07-06 06:52 | NUR ---
PT IS ABLE TO COMMUNICATE HIS NEEDS TO STAFF EFFECTIVELY. HE HAS DENIED THE NEED FOR PAIN MEDICATION UP TO THIS TIME. LAWRENCE IS PATENT. PT TAKES MEDICATIONS CRUSHED AND PLACED IN APPLESAUCE. POSSIBLE VIDEO SWALLOW STUDY TODAY WITH
[2019-07-06 09:00] VITALS: BP 96/52
--- NOTE | 2019-07-06 09:21 | NUR ---
HEARD FROM SON/BELLA. AFTER DISCUSSIONS WITH HIS PARENTS, THEY ARE NOW INTERESTED IN [facility] OR A SNF IN [place]. CALLED AND FAXED REFERRAL TO [facility]. SHE WILL CHECK ABOUT WHETHER THEY CAN SUPPORT A TRILOGY AND IF NOT; COULD THEY RENT A BIPAP FOR STAY. AWAIT CALL BACK
[2019-07-06 11:30] VITALS: BP 115/64
[2019-07-06 12:44] LABS: CALCIUM 8.4 mg/dL (8.5-10.1); CREATININE 2.8 mg/dL (0.6-1.3); POTASSIUM 3.7 mmol/L (3.5-5.1)
--- NOTE | 2019-07-06 13:22 | NUR ---
ASSUMED CARE OF PATIENT THIS AM AT 0730. PATIENT IS ALERT AND ORIENTED X 4. HE DENIES PAIN THIS AM. TELE SHOWS CONTINUED AFIB. PATIENT ASSISTED UP TO THE CHAIR WITH THERAPY. HE HAS ALSO BEEN REPOSITIONED Q 2 HR. LAWRENCE IS TO DD. HE IS TAKING HIS DIET WELL. LAB RESULTS CALLED TO DR FERRO. PATIENT IS PROGRESSING TOWARDS GOALS. WILL CONTINUE TO MONITOR.
[2019-07-06 16:00] VITALS: BP 108/55
[2019-07-06 20:32] VITALS: BP 113/63
[2019-07-07 00:48] VITALS: BP 110/70
[2019-07-07 04:17] VITALS: BP 118/58
[2019-07-07 05:05] LABS: HEMATOCRIT 28.8 % (42.0-52.0); HEMOGLOBIN 9.3 gm/dL (14.0-18.0); MCH 28.3 pg (26.0-34.0); MCHC 32.3 g/dL (28.0-37.0); MCV 87.7 fL (80.0-100.0); MPV 8.6 fl. (7.2-11.1); RBC 3.28 mil/uL (4.50-6.00); RDW-CV 16.4 % (10.5-14.5); WBC 20.7 thou/uL (4.0-11.0)
[2019-07-07 05:10] LABS: CALCIUM 8.5 mg/dL (8.5-10.1); CREATININE 2.6 mg/dL (0.6-1.3); POTASSIUM 3.9 mmol/L (3.5-5.1)
--- NOTE | 2019-07-07 05:14 | NUR ---
PT IS ABLE TO COMMUNICATE HIS NEEDS TO STAFF EFFECTIVELY AT THIS TIME. HE HAS DENIED THE NEED FOR PAIN MEDICATION UP TO THIS TIME. BRAVO IS PATENT. POSSIBLE DISCHARGE TO A SKILLED FACILITY LATER TODAY.
[2019-07-07 05:24] LABS: ALBUMIN 2.3 g/dL (3.4-5.0); CALCIUM 8.1 mg/dL (8.5-10.1); CREATININE 2.5 mg/dL (0.6-1.3); MAGNESIUM 2.8 mg/dL (1.8-2.4); POTASSIUM 4.2 mmol/L (3.5-5.1)
[2019-07-07 08:00] VITALS: BP 113/63
--- NOTE | 2019-07-07 10:07 | PATH ---
[address] [address] PATHOLOGY RPT PROCEDURE Name: YAO LOYA Room: [address] IN [facility]#: [id number] Admission: 06/24/19 Date of : 41 Discharge: Report #: [id number] Path Case #: [id number] Note [facility] Accession Number: [id number] TESTS RESULT FLAG UNITS REF RANGE LAB Clinician Provided Cytology Information No. of containers..01 Other (Miscellaneous) Source: RT PLEURAL FLUID Clinician ICD10: 01 J15.6 DIAGNOSIS: 02 RT PLEURAL FLUID NEGATIVE FOR MALIGNANT CELLS. MESOTHELIAL CELLS, ACUTE AND CHRONIC INFLAMMATORY CELLS AND RED BLOOD CELLS. Signed out by: 02 Miky Barboza MD, Pathologist NPI- [id number] Performed by: Mj Cabrera, Huller Operator ([facility]) Gross description: 01 20ML, RED, /LCS 09/22/1840 0000 Local FLAG LEGEND: L-Low Normal,H-High Normal,LL-Alert Low,HH-Alert High <-Panic Low,>-Panic High,A-Abnormal,AA-Critical Abnormal Performed at: [address] [place] [address] Michael Parnell MD, [address] [place] [address] [address] [facility], [place] [address] Miky Barboza MD, Specimen Comment: A courtesy copy of this report has been sent to Specimen Comment: [phone], . Specimen Comment: Report sent to / DR BURR Specimen Comment: A duplicate report has been generated due to demographic updates. Performed at: [address], [place], [place] [id number] MD Michael Parnell MD Phone: [phone]
[2019-07-07 12:22] VITALS: BP 110/59
--- NOTE | 2019-07-07 13:49 | NUR ---
CONTINUE TO FOLLOW, SON AND HERE TODAY. DISCUSSED SNF AGAIN AND THEY ARE INTERESTED IN [facility]. RECEIVED CALL RE: POSSIBLE REHAB FROM [facility]. DISCUSSED POSSIBLE INPT REHAB ADMIT WITH PT AND FAMILY, THEY ARE INTERESTED IF PT QUALIFIES. ORDER TO CONSULT RECEIVED, WILL FOLLOW
[2019-07-07 16:55] VITALS: BP 127/71
[2019-07-07 20:00] VITALS: BP 91/52
[2019-07-08 00:39] VITALS: BP 105/50
[2019-07-08 04:00] VITALS: BP 106/58
[2019-07-08 05:26] LABS: HEMATOCRIT 28.6 % (42.0-52.0); HEMOGLOBIN 9.4 gm/dL (14.0-18.0); MCH 28.8 pg (26.0-34.0); MCHC 32.9 g/dL (28.0-37.0); MCV 87.5 fL (80.0-100.0); MPV 8.4 fl. (7.2-11.1); RBC 3.27 mil/uL (4.50-6.00); RDW-CV 16.3 % (10.5-14.5); WBC 21.1 thou/uL (4.0-11.0)
[2019-07-08 05:54] LABS: ALBUMIN 2.2 g/dL (3.4-5.0); CALCIUM 8.1 mg/dL (8.5-10.1); CREATININE 2.3 mg/dL (0.6-1.3); POTASSIUM 3.5 mmol/L (3.5-5.1); TOTAL BILIRUBIN 0.5 mg/dL (<0.1-1.0); TOTAL PROTEIN 5.8 g/dL (6.4-8.2)
--- NOTE | 2019-07-08 07:06 | NUR ---
A+OX4. PT WAS GIVEN TYLENOL @ BEDTIME FOR [facility]. TRACING AFIB ON MONITOR. PT HAD LARGE LOOSE BM. SLEPT THROUGH THE NIGHT. CALL LIGHT IN REACH. HOURLY ROUNDING FOR SAFETY.
[2019-07-08 08:00] VITALS: BP 108/62
[2019-07-08 09:04] LABS: BF RBC 591452 /mm3
[2019-07-08 09:07] LABS: CLARITY TURBID
[2019-07-08 09:08] LABS: TOTAL CELL COUNT 1404 /mm3
[2019-07-08 09:52] LABS: BF EOSINOPHILS 56 %; BF LYMPHOCYTES 22 %; BF MONOCYTES 16 %; BF POLYS 6 %; BF TISSUE 6 /100 WBC
[2019-07-08 11:57] VITALS: BP 110/68
--- NOTE | 2019-07-08 14:53 | NUR ---
PT HAS BEEN ACCEPTED TO IN REHAB PENDING MED CLEARANCE, UPDATED DR PARKER. CALL TO SON/BELLA TO UPDATE ALSO. CALL TO [facility] TO NOTIFY
--- NOTE | 2019-07-08 15:45 | NUR ---
ASSUMED PT CARE AT 0730. ASSESSMENT COMPLETED CHARTED. ABLE TO MAKE NEEDS KNOWN. NO C/O PAIN OR DISCOMFORT. PT BEING TRANSFERRED UP TO M/S AFTER GETTING ORDERS TO CHANGE TO M/S STATUS. MRSA AND CDIFF CAME BACK NEGATIVE. PT PASSED XRAY SWALLOW EXCEPT PILLS, WHICH WE WILL NEED TO CRUSH. UP WITH 1-2 ASSIST. RESTING IN RECLINER AT THIS TIME. WILL CONTINUE TO MONITOR.
[2019-07-08 16:10] VITALS: BP 117/60
--- NOTE | 2019-07-08 18:29 | NUR ---
ASSUMED CARE OF PATIENT AT 1610. REPORT RECEIVED FROM TASHA. PATIENT SETTLED TO ROOM. PATIENT DENIES ANY PAIN AT THIS TIME. PATIENT IS UP WITH ASSIST OF 1-2 WITH GAIT BELT. PATIENT HAS GOOD APPETITE. PATIENT DENIES ANY NEEDS AT THIS TIME. CALL LIGHT WITHIN REACH.
[2019-07-08 20:51] VITALS: BP 117/61
--- NOTE | 2019-07-09 05:09 | CON ---
[address] [address] CONSULTATION Name: SHALINIYAO Ivan Room: [address] IN .R.#: [id number] Admission: 06/24/19 Attend Phys: Rosales Barrientos MD Discharge: Date of : 41 Report #: [id number] THIS REPORT FOR: //name// CC: Rosales Almaraz DATE OF SERVICE: 06/26/2019 NEPHROLOGY CONSULTATION CONSULTING PHYSICIAN: Rosales Barrientos MD REASON FOR NEPHROLOGY CONSULTATION: Acute kidney injury on chronic kidney disease stage 3. REASON FOR ADMISSION: Feeling of shortness of breath. HISTORY OF PRESENT ILLNESS: The patient is a 79-year-old male who has past medical history of chronic kidney disease stage 3, baseline creatinine 1.5-1.6, history of diabetes type 2, benign prostatic hypertrophy, recently he had a cystoscopy done, and has been asked to intermittently straight catheterize himself which he has been doing every 6 hours, atrial fibrillation, paroxysmal supraventricular tachycardia, essential hypertension, esophageal stricture, diabetic neuropathy, came in because he was having some shortness of breath. He was diagnosed with pneumonia. He also had some evidence of pleural effusions, so he was diuresed with IV Lasix and he was started on antibiotics for pneumonia. He does take Lasix at home 40 mg 3 times a week. His creatinine was 1.5 when he came in, then went up to 1.9 yesterday, and it is 1.8 today. I started him on IV fluids yesterday. He currently does not have any edema. He has been straight self-catheterizing himself with success and Urology has evaluated him and for now, because of his medical problems, they have recommended maximum medical therapy for his BPH including tamsulosin and finasteride. His cystoscopy, which was done in May, confirmed prostatic regrowth and trabeculated bladder. He has had prior TURP with Dr. Kent in 2007. He has chronic kidney disease because of NSAID use in the past, diabetes, and hypertension. Currently, the patient states that he has not been eating great. There is no history of kidney stones. He is not using NSAIDs now. He had abdominal imaging done, which did not reveal any hydronephrosis. ALLERGIES: CONTRAST DYE, METOPROLOL, AND SOTALOL. HOME MEDICATIONS: Include ____; cholecalciferol; furosemide 40 mg, which he takes 3 times a week; potassium; aspirin 81 mg a day; meclizine; insulin detemir; esomeprazole; and multivitamins. FAMILY HISTORY: [place] [address] CONSULTATION Name: YAO LOYA Room: [address] IN M.R.#: [id number] Admission: 06/24/19 Attend Phys: Rosales Barrientos MD Discharge: Date of : 41 Report #: [id number] REVIEW OF SYSTEMS: As mentioned in history of present illness; otherwise, 10-point review of systems are negative. PAST MEDICAL HISTORY: Includes hypertension; renal disease; baseline creatinine 1.5-1.6, chronic kidney disease stage 3 due to diabetes, hypertension and NSAID use in the past; atrial fibrillation; benign prostatic hypertrophy; urinary retention; and non-Hodgkin lymphoma. PAST SURGICAL HISTORY: Includes hernia repair, tonsillectomy, partial gastrectomy, back surgery, Watchman implanted in 04/2019, carpal tunnel repair, TURP, and recent cystoscopy. SOCIAL HISTORY: Does not smoke, drink alcohol, or use illicit drugs. He lives at home with his spouse. PHYSICAL EXAMINATION: VITAL SIGNS: Blood pressure is 126/61, temperature 36.8, pulse rate is 87, respiratory rate is 18, and his pulse ox on room air is 97%. GENERAL: He is awake and alert, trying to eat his breakfast. HEAD AND EYES: Atraumatic, normocephalic, and normal conjunctivae. EARS, NOSE, AND THROAT: Mucous membranes are moist. NECK: There is no JVD. CHEST: Bilaterally clear to auscultation posteriorly. No crackles or wheezing. CARDIOVASCULAR: S1, S2 normal. No murmurs. ABDOMEN: Soft, nondistended, nontender. Bowel sounds are present. EXTREMITIES: There is no lower extremity edema currently. NEUROLOGICAL: Gross neurological function is intact: PSYCHIATRIC: Mood and affect seem to be normal. LABORATORY DATA: Sodium 144, potassium was 4.0, CO2 was 27, BUN was 38, creatinine was 1.8, and other labs were reviewed. IMAGING: Abdominal ultrasound and chest x-ray were reviewed. ASSESSMENT: 1. Acute kidney injury on top of chronic kidney disease stage 3, baseline creatinine 1.5-1.6. Creatinine was 1.5 on admission and went up to 1.9. UA was noted. It is from a catheterized specimen. He had no protein or blood in his urine when I checked his urine in my office back in April. He does have microscopic hematuria at this time, but then again not reliable because it is a catheterized specimen. Abdominal ultrasound, which was done 2 days ago, did not reveal any hydronephrosis. Acute kidney injury is in the setting of diuretic use. 2. Community-acquired pneumonia. Pulmonology is following and he is on antibiotic treatment for that. [address] [address] CONSULTATION Name: YAO LOYA Ivan Room: [address] IN M.R.#: [id number] Admission: 06/24/19 Attend Phys: Rosales Barrientos MD Discharge: Date of : 41 Report #: [id number] 3. UTI, defer to primary team for management of that. He is on antibiotics for that too. 4. Diabetes type 2. 5. Hypertension. Blood pressure is controlled. 6. History of non-Hodgkin lymphoma. PLAN: 1. I would hold his Lasix for now and hydrate him gently. He is on IV fluids. 2. If creatinine continues to get better tomorrow, he can be discharged from renal standpoint and follow up with us as an outpatient and try to avoid nephrotoxic agents and IV contrast. 3. We will continue to follow with you and discussed with the patient and nurse. <ELECTRONICALLY SIGNED> By: Florence Mahmood MD 07/09/19 0509 1056 [id number] Mahmood MD /nt
--- NOTE | 2019-07-09 05:44 | NUR ---
PATIENT SLEPT MOST OF THE NIGHT. IV REMAINS SALINE LOCKED. BRAVO REMAINS IN PLACE TO DEPENDENT DRAIN. PATIENT HAD NO COMPLAINTS OF PAIN. PATIENT COULD DISCHARGE TO REHAB TODAY OR TOMORROW. WILL CONTINUE TO MONITOR.
[2019-07-09 08:05] VITALS: BP 125/74
[2019-07-09 09:08] LABS: HEMATOCRIT 28.2 % (42.0-52.0); HEMOGLOBIN 9.3 gm/dL (14.0-18.0); MCH 28.8 pg (26.0-34.0); MCV 87.2 fL (80.0-100.0); MPV 8.6 fl. (7.2-11.1); NUCLEATED RBCS 0 /100WBC; PLATELET COUNT* 222 thou/uL (150-400); RBC 3.23 mil/uL (4.50-6.00); RDW-CV 16.5 % (10.5-14.5); WBC 17.4 thou/uL (4.0-11.0)
[2019-07-09] MEDS ORDERED: LASIX 40 MG TAB40 M1 PO (09:31)
[2019-07-09] MEDS ORDERED: IPRAT-ALBUT 0.5-3 ML INH (09:31)
[2019-07-09] MEDS ORDERED: PULMICORT0.5 MG/2 M INH (09:31)
[2019-07-09] MEDS ORDERED: PREDNISONE 10 M10 MG PO (09:31)
[2019-07-09] MEDS ORDERED: FLUCONAZOLE 10100 MG PO (09:31)
[2019-07-09] MEDS ORDERED: AMOX TR-K CLV1 EAC3 PO (09:31)
[2019-07-09 09:38] LABS: ALBUMIN 2.3 g/dL (3.4-5.0); CALCIUM 8.5 mg/dL (8.5-10.1); MAGNESIUM 2.6 mg/dL (1.8-2.4); POTASSIUM 3.4 mmol/L (3.5-5.1); TOTAL BILIRUBIN 0.6 mg/dL (<0.1-1.0); TOTAL PROTEIN 6.1 g/dL (6.4-8.2)
[2019-07-09 09:43] LABS: ABSOLUTE LYMPHOCYTES 0.5 thou/uL (0.8-5.3); ABSOLUTE MONOCYTES 1.2 thou/uL (0.0-1.2); ABSOLUTE NEUTROPHILS 15.7 thou/uL (1.6-8.1); ANISOCYTOSIS 1+; HYPOCHROMASIA Occasional; POIKILOCYTOSIS 1+
[2019-07-09 10:07] LABS: SOURCE PLEURAL FLUID
[2019-07-09 11:33] VITALS: BP 125/74
[2019-07-09] MEDS ORDERED: HUMALOG100 UNIT/1 SUBQ (11:45)
--- NOTE | 2019-07-09 12:50 | NUR ---
ORDER NOTED FOR PT TO DC TO REHAB. PT AWARE AND CALLED TO UPDATE AND SON.
--- NOTE | 2019-07-09 13:07 | PATH ---
[address] [address] PATHOLOGY RPT PROCEDURE Name: YAO LOYA Room: [address] IN [facility]#: [id number] Admission: 06/24/19 Date of : 42 Discharge: Report #: [id number] Path Case #: [id number] Note [facility] Accession Number: [id number] TESTS RESULT FLAG UNITS REF RANGE LAB Clinician Provided Cytology Information No. of containers..01 Other (Miscellaneous) Source: LT PLEURAL FLUID DIAGNOSIS: LT PLEURAL FLUID INCONCLUSIVE. FEW ATYPICAL CELLS IN BACKGROUND OF REACTIVE MESOTHELIAL CELLS AND ACUTE AND CHRONIC INFLAMMATION AND RED BLOOD CELLS. SEE COMMENT. COMMENT A FEW GENERALLY SINGLE ATYPICAL CELLS ARE PRESENT WHICH ARE WITHIN THE SPECTRUM OF REACTIVE/INFLAMMATORY ATYPIA, HOWEVER, NEOPLASIA CANNOT BE ENTIRELY EXCLUDED. REVIEWED WITH DR. YESSENIA MONTGOMERY, CYTOPATHOLOGIST, WHO AGREES WITH THE DIAGNOSIS. (ADONAY/db; 07/07/2019) Signed out by: 02 Miky Barboza MD, Pathologist NPI- [id number] Performed by: 01 Anh Milan, Mathematics Instructor ([facility]) Gross description: 01 60 ML, RED, BLOODY /LCS 09/22/1840 0000 Local FLAG LEGEND: L-Low Normal,H-High Normal,LL-Alert Low,HH-Alert High <-Panic Low,>-Panic High,A-Abnormal,AA-Critical Abnormal Performed at: [address] [place] [address] Michael Parnell MD, [address] [place] [id number] Miky Barboza MD, Specimen Comment: A courtesy copy of this report has been sent to Specimen Comment: [phone], . Specimen Comment: Report sent to / DR BURR Specimen Comment: A duplicate report has been generated due to demographic updates. Performed at: [address], [place], [place] [id number] [place] [address] PATHOLOGY RPT PROCEDURE Name: YAO LOYA [address]: [address] [id number] Admission: 06/24/19 Date of : 42 Discharge: Report #: [id number] Path Case #: [id number] [facility] Phone: [phone]
--- NOTE | 2019-07-09 13:50 | NUR ---
PATIENT DISCHARGED TO INPATIENT REHAB. REPORT GIVEN TO MJ KEANE. COPY OF ORDERS AND MEDICATIONS GIVEN TO REHAB STAFF. PATIENT BELONGINGS PACKED AND MOVED TO ROOM 323. PATIENT DENIES ANY FURTHER NEEDS. PATIENT TAKEN TO ROOM 323 AT THIS TIME.
== END 2019-07-09 13:48 | DRG 871 ==
LOC: M.ERS 22:36 → M.TBA-ER 06-24 02:09 → M.2W 06-24 02:09 → M.3W 06-24 02:09 → M.2W 06-29 22:40 → M.ICU 07-01 13:49 → M.2W 07-05 08:12 → M.3W 07-08 16:01
PROVIDERS: Emergency Medicine; Family Medicine; Internal Medicine; Internal Medicine Critical Care Medicine; Internal Medicine Nephrology; ADMIT Internal Medicine
PROC: 5A09357 Assistance with Respiratory Ventilation, Less than 24 Consecutive Hours, Continuous Positive Airway Pressure (ICD-10-PCS; principal; 2019-06-29)
PROC: 5A09357 Assistance with Respiratory Ventilation, Less than 24 Consecutive Hours, Continuous Positive Airway Pressure (ICD-10-PCS; 2019-06-30)
PROC: 5A09357 Assistance with Respiratory Ventilation, Less than 24 Consecutive Hours, Continuous Positive Airway Pressure (ICD-10-PCS; 2019-07-01)
PROC: 0W993ZZ Drainage of Right Pleural Cavity, Percutaneous Approach (ICD-10-PCS; 2019-07-02)
PROC: 5A09357 Assistance with Respiratory Ventilation, Less than 24 Consecutive Hours, Continuous Positive Airway Pressure (ICD-10-PCS; 2019-07-02)
PROC: 5A09357 Assistance with Respiratory Ventilation, Less than 24 Consecutive Hours, Continuous Positive Airway Pressure (ICD-10-PCS; 2019-07-03)
PROC: 0W9B3ZZ Drainage of Left Pleural Cavity, Percutaneous Approach (ICD-10-PCS; 2019-07-03)
PROC: 5A09357 Assistance with Respiratory Ventilation, Less than 24 Consecutive Hours, Continuous Positive Airway Pressure (ICD-10-PCS; 2019-07-05)
DX: A41.9 Sepsis, unspecified organism (principal); J15.6 Pneumonia due to other Gram-negative bacteria; J96.21 Acute and chronic respiratory failure with hypoxia; I50.33 Acute on chronic diastolic (congestive) heart failure; J96.22 Acute and chronic respiratory failure with hypercapnia; N17.0 Acute kidney failure with tubular necrosis; N30.01 Acute cystitis with hematuria; J91.8 Pleural effusion in other conditions classified elsewhere; J98.11 Atelectasis; N18.4 Chronic kidney disease, stage 4 (severe); I13.0 Hypertensive heart and chronic kidney disease with heart failure and stage 1 through stage 4 chronic kidney disease, or unspecified chronic kidney disease; I48.91 Unspecified atrial fibrillation; E86.0 Dehydration; E11.22 Type 2 diabetes mellitus with diabetic chronic kidney disease; D72.829 Elevated white blood cell count, unspecified; N40.1 Benign prostatic hyperplasia with lower urinary tract symptoms; R33.8 Other retention of urine; R13.10 Dysphagia, unspecified; D50.9 Iron deficiency anemia, unspecified; B96.4 Proteus (mirabilis) (morganii) as the cause of diseases classified elsewhere; I95.2 Hypotension due to drugs; J44.9 Chronic obstructive pulmonary disease, unspecified; B96.0 Mycoplasma pneumoniae [M. pneumoniae] as the cause of diseases classified elsewhere; Z90.3 Acquired absence of stomach [part of]; Z88.8 Allergy status to other drugs, medicaments and biological substances; Z91.041 Radiographic dye allergy status; Z82.49 Family history of ischemic heart disease and other diseases of the circulatory system; Z85.71 Personal history of Hodgkin lymphoma; Z79.82 Long term (current) use of aspirin; Z79.899 Other long term (current) drug therapy; Z79.01 Long term (current) use of anticoagulants; Z28.21 Immunization not carried out because of patient refusal

== ENCOUNTER 2019-07-09 11:24 | Inpatient (IN) | payer MEDICARE, BC ==
[~2019-07-09] VITALS: Ht 188 cm; Wt 96.6 kg
[~2019-07-09 11:24] MED LIST changes: +ELIQUIS2.5 MG PO; +FLUCONAZOLE 10100 MG PO; +IPRAT-ALBUT 0.5-3 ML INH; +KLOR-CON M2020 MEQ PO; +LASIX 40 MG TAB40 M1 PO; +LASIX 40 MG TAB40 M2 PO; +PREDNISONE 10 M10 MG PO; +PULMICORT0.5 MG/2 M INH; +VITAMIN D1000 UNI1 PO
[2019-07-09] MEDS ORDERED: HUMALOG100 UNIT/1 SUBQ (11:45)
[2019-07-09 14:15] VITALS: BP 115/56
[2019-07-09 20:15] VITALS: BP 105/49
[2019-07-10 05:22] LABS: HEMATOCRIT 27.6 % (42.0-52.0); HEMOGLOBIN 8.9 gm/dL (14.0-18.0); MCH 28.3 pg (26.0-34.0); MCHC 32.4 g/dL (28.0-37.0); MCV 87.4 fL (80.0-100.0); MPV 8.6 fl. (7.2-11.1); RBC 3.15 mil/uL (4.50-6.00); WBC 16.2 thou/uL (4.0-11.0)
[2019-07-10 05:46] LABS: CALCIUM 8.6 mg/dL (8.5-10.1); CREATININE 1.9 mg/dL (0.6-1.3); POTASSIUM 3.6 mmol/L (3.5-5.1)
[2019-07-10 07:28] VITALS: BP 114/65
[2019-07-10 19:48] VITALS: BP 123/64
[2019-07-11 09:30] VITALS: BP 107/64
[2019-07-11 19:25] VITALS: BP 119/60
[2019-07-12 07:45] VITALS: BP 116/59
[2019-07-12 12:19] LABS: URINE BILIRUBIN NEGATIVE (Negative); URINE BLOOD TRACE (Negative); URINE CLARITY CLEAR; URINE COLOR YELLOW; URINE GLUCOSE-RANDOM 1+ (Negative); URINE KETONES NEGATIVE (Negative); URINE LEUKOCYTES-REFLEX 1+ (Negative); URINE NITRITE-REFLEX NEGATIVE (Negative); URINE PROTEIN NEGATIVE (Negative); URINE UROBILINOGEN 0.2 E.U./dl (0.2-1.0)
[2019-07-12 12:27] LABS: SQUAMOUS 0-3 Few /LPF (0-3)
[2019-07-12 12:29] LABS: CRYSTALS None Seen /LPF (None Seen); HYALINE CASTS >10 Many /LPF (None Seen); MUCUS 4-6 Moderate strn/LPF (None Seen); URINE RBC 0-2 Rare /HPF (0-2); YEAST-REFLEX Present (None Seen)
[2019-07-12 19:00] VITALS: BP 118/70
[2019-07-12 21:00] VITALS: BP 119/64
[2019-07-13 00:40] VITALS: BP 123/67
[2019-07-13 05:51] LABS: HEMATOCRIT 26.5 % (42.0-52.0); HEMOGLOBIN 8.5 gm/dL (14.0-18.0); MCH 28.2 pg (26.0-34.0); MCHC 32.2 g/dL (28.0-37.0); MCV 87.8 fL (80.0-100.0); MPV 8.5 fl. (7.2-11.1); RBC 3.02 mil/uL (4.50-6.00); RDW-CV 17.7 % (10.5-14.5); WBC 18.3 thou/uL (4.0-11.0)
[2019-07-13 06:00] VITALS: BP 107/59
[2019-07-13 06:05] LABS: ALBUMIN 2.2 g/dL (3.4-5.0); CALCIUM 8.4 mg/dL (8.5-10.1); CREATININE 1.5 mg/dL (0.6-1.3); MAGNESIUM 2.1 mg/dL (1.8-2.4); POTASSIUM 3.8 mmol/L (3.5-5.1); TOTAL BILIRUBIN 0.7 mg/dL (<0.1-1.0); TOTAL PROTEIN 5.8 g/dL (6.4-8.2)
[2019-07-13 08:00] VITALS: BP 122/65
[2019-07-13 19:30] VITALS: BP 114/64
[2019-07-14 05:01] LABS: HEMATOCRIT 26.1 % (42.0-52.0); HEMOGLOBIN 8.4 gm/dL (14.0-18.0); MCH 28.5 pg (26.0-34.0); MCHC 32.1 g/dL (28.0-37.0); MCV 88.7 fL (80.0-100.0); MPV 9.2 fl. (7.2-11.1); RBC 2.94 mil/uL (4.50-6.00); WBC 16.2 thou/uL (4.0-11.0)
[2019-07-14 05:12] LABS: CALCIUM 7.9 mg/dL (8.5-10.1); CREATININE 1.7 mg/dL (0.6-1.3); MAGNESIUM 2.2 mg/dL (1.8-2.4); POTASSIUM 3.8 mmol/L (3.5-5.1)
[2019-07-14 08:06] VITALS: BP 99/56
[2019-07-14 19:00] VITALS: BP 110/68
[2019-07-15 07:30] VITALS: BP 94/51
[2019-07-15 14:02] VITALS: BP 112/59
[2019-07-15 20:25] VITALS: BP 111/67
[2019-07-16 04:30] LABS: HEMATOCRIT 26.8 % (42.0-52.0); HEMOGLOBIN 8.4 gm/dL (14.0-18.0); MCH 28.1 pg (26.0-34.0); MCHC 31.4 g/dL (28.0-37.0); MCV 89.4 fL (80.0-100.0); RDW-CV 18.7 % (10.5-14.5)
[2019-07-16 04:44] LABS: CALCIUM 7.9 mg/dL (8.5-10.1); CREATININE 1.4 mg/dL (0.6-1.3); POTASSIUM 3.7 mmol/L (3.5-5.1)
[2019-07-16 09:43] VITALS: BP 91/51
[2019-07-16 14:00] VITALS: BP 108/60
[2019-07-16 19:21] VITALS: BP 115/67
[2019-07-17 08:00] VITALS: BP 98/57
[2019-07-17 19:40] VITALS: BP 101/59
[2019-07-18 07:30] VITALS: BP 125/89
[2019-07-18 20:10] VITALS: BP 116/60
[2019-07-19 08:00] VITALS: BP 133/64
[2019-07-19 12:01] LABS: CALCIUM 8.6 mg/dL (8.5-10.1); CREATININE 1.8 mg/dL (0.6-1.3); MAGNESIUM 1.8 mg/dL (1.8-2.4); PHOSPHORUS* 2.9 mg/dL (2.5-4.9); POTASSIUM 4.2 mmol/L (3.5-5.1)
[2019-07-19 19:40] VITALS: BP 113/60
[2019-07-20 08:00] VITALS: BP 128/54
[2019-07-20 19:25] VITALS: BP 121/63
[2019-07-21 08:00] VITALS: BP 133/71
[2019-07-22 05:03] LABS: MCH 29.9 pg (26.0-34.0); MCHC 33.3 g/dL (28.0-37.0); MCV 89.7 fL (80.0-100.0); MPV 8.3 fl. (7.2-11.1); RBC 2.68 mil/uL (4.50-6.00); RDW-CV 19.4 % (10.5-14.5); WBC 8.5 thou/uL (4.0-11.0)
[2019-07-22 05:20] LABS: CALCIUM 8.3 mg/dL (8.5-10.1); CREATININE 1.6 mg/dL (0.6-1.3); MAGNESIUM 1.9 mg/dL (1.8-2.4)
[2019-07-22 08:11] VITALS: BP 123/68
[2019-07-22 20:00] VITALS: BP 123/63
[2019-07-23 07:45] VITALS: BP 123/64
[2019-07-23 20:00] VITALS: BP 100/55
[2019-07-24 08:00] VITALS: BP 110/54
[2019-07-24 20:14] VITALS: BP 125/61
[2019-07-25 05:05] LABS: HEMATOCRIT 23.1 % (42.0-52.0); HEMOGLOBIN 7.6 gm/dL (14.0-18.0); MCH 29.3 pg (26.0-34.0); MCHC 32.7 g/dL (28.0-37.0); MCV 89.3 fL (80.0-100.0); MPV 8.6 fl. (7.2-11.1); RBC 2.59 mil/uL (4.50-6.00); RDW-CV 19.4 % (10.5-14.5); WBC 7.6 thou/uL (4.0-11.0)
[2019-07-25 05:18] LABS: ALBUMIN 2.3 g/dL (3.4-5.0); CALCIUM 8.3 mg/dL (8.5-10.1); CREATININE 1.7 mg/dL (0.6-1.3); MAGNESIUM 1.9 mg/dL (1.8-2.4); POTASSIUM 4.3 mmol/L (3.5-5.1); TOTAL BILIRUBIN 0.5 mg/dL (<0.1-1.0); TOTAL PROTEIN 6.2 g/dL (6.4-8.2)
[2019-07-25 07:56] VITALS: BP 114/60
[2019-07-25] MEDS ORDERED: DULCOLAX10 MG RECTAL (10:28)
[2019-07-25] MEDS ORDERED: CARDIZEM SR 60M60 MG PO (10:30)
[2019-07-25] MEDS ORDERED: COLACE100 MG PO (10:31)
[2019-07-25] MEDS ORDERED: DUONEB INH (10:34)
[2019-07-25] MEDS ORDERED: FLOMAX0.4 MG PO (10:35)
[2019-07-25] MEDS ORDERED: LANTUS100 UNIT/M SUBQ (10:39)
[2019-07-25] MEDS ORDERED: LANTUS SUBLING (10:40)
[2019-07-25] MEDS ORDERED: MIRALAX119 GM PO (10:41)
[2019-07-25] MEDS ORDERED: MILK OF MA400 MG/5 M PO (10:42)
[2019-07-25] MEDS ORDERED: RAYOS5 MG PO (10:45)
[2019-07-25] MEDS ORDERED: SUPER THERAVIT1 EACH PO (10:47)
[2019-07-25] MEDS ORDERED: TESSALON PERLE100 M1 PO (10:48)
[2019-07-25 11:15] VITALS: BP 119/60
[2019-07-25 13:34] VITALS: BP 119/60
== END 2019-07-25 13:30 | DRG 193 ==
LOC: M.REH 11:24
PROVIDERS: Family Medicine; Internal Medicine; ADMIT Physical Medicine & Rehabilitation
DX: J18.9 Pneumonia, unspecified organism (principal); A41.9 Sepsis, unspecified organism; N17.0 Acute kidney failure with tubular necrosis; I50.33 Acute on chronic diastolic (congestive) heart failure; N30.01 Acute cystitis with hematuria; J96.11 Chronic respiratory failure with hypoxia; J96.12 Chronic respiratory failure with hypercapnia; I13.0 Hypertensive heart and chronic kidney disease with heart failure and stage 1 through stage 4 chronic kidney disease, or unspecified chronic kidney disease; Z16.35 Resistance to multiple antimicrobial drugs; J91.8 Pleural effusion in other conditions classified elsewhere; R53.81 Other malaise; N40.1 Benign prostatic hyperplasia with lower urinary tract symptoms; R33.8 Other retention of urine; N18.3 Chronic kidney disease, stage 3 (moderate); E11.22 Type 2 diabetes mellitus with diabetic chronic kidney disease; I48.91 Unspecified atrial fibrillation; D50.9 Iron deficiency anemia, unspecified; I95.2 Hypotension due to drugs; Z91.041 Radiographic dye allergy status; Z88.8 Allergy status to other drugs, medicaments and biological substances; Z90.49 Acquired absence of other specified parts of digestive tract; Z23 Encounter for immunization

== ENCOUNTER 2019-08-03 15:44 | Inpatient (IN) | payer MEDICARE, BC ==
[~2019-08-03] VITALS: Ht 188 cm; Wt 104.3 kg
[2019-08-03 15:44] VITALS: BP 141/69
[~2019-08-03 15:44] MED LIST changes: +CARDIZEM SR 60M60 MG PO; +COLACE100 MG PO; +DULCOLAX10 MG RECTAL; +DUONEB INH; +FLOMAX0.4 MG PO; +HUMALOG100 UNIT/1 SUBQ; +LANTUS SUBLING; +LANTUS100 UNIT/M SUBQ; +MILK OF MA400 MG/5 M PO; +MIRALAX119 GM PO; +RAYOS5 MG PO; +SUPER THERAVIT1 EACH PO; +TESSALON PERLE100 M1 PO; -VITAMIN D1000 UNI1 PO; +Vitamin D 1000 UNIT
[2019-08-03 16:20] LABS: HEMATOCRIT 24.6 % (42.0-52.0); HEMOGLOBIN 7.9 gm/dL (14.0-18.0); MCH 28.8 pg (26.0-34.0); MCHC 32.3 g/dL (28.0-37.0); MCV 89.2 fL (80.0-100.0); NUCLEATED RBCS 0 /100WBC; PLATELET COUNT* 318 thou/uL (150-400); RBC 2.76 mil/uL (4.50-6.00); RDW-CV 18.2 % (10.5-14.5); WBC 8.8 thou/uL (4.0-11.0)
[2019-08-03 16:28] LABS: BE 0.5 mmol/L (-2 to +3); PCO2 42.8 mmHg (35.0-45.0); PO2 87.7 mmHg (75.0-100.0); pH 7.393 (7.340-7.450)
[2019-08-03 16:30] LABS: APTT 29.3 Seconds (25.0-31.3); INR 1.1; PROTIME 11.3 Seconds (9.20-11.50)
[2019-08-03 16:31] LABS: CALCIUM 8.2 mg/dL (8.5-10.1); CREATININE 1.8 mg/dL (0.6-1.3); POTASSIUM 4.5 mmol/L (3.5-5.1)
[2019-08-03 16:42] LABS: ALBUMIN 2.4 g/dL (3.4-5.0); TOTAL BILIRUBIN 0.3 mg/dL (<0.1-1.0); TOTAL PROTEIN 6.7 g/dL (6.4-8.2)
[2019-08-03 17:04] LABS: ABSOLUTE EOSINOPHILS 0.1 thou/uL (0.0-0.7); ABSOLUTE LYMPHOCYTES 0.8 thou/uL (0.8-5.3); ABSOLUTE MONOCYTES 0.5 thou/uL (0.0-1.2); ABSOLUTE NEUTROPHILS 7.4 thou/uL (1.6-8.1); ATYPICAL LYMPHS 2 %
[2019-08-03 17:05] LABS: HYPOCHROMASIA 2+; PLATELET ESTIMATE ADEQUATE; POLYCHROMASIA Occasional
[2019-08-03 17:06] LABS: URINE BILIRUBIN NEGATIVE (Negative); URINE BLOOD NEGATIVE (Negative); URINE CLARITY CLEAR; URINE COLOR YELLOW; URINE GLUCOSE-RANDOM NEGATIVE (Negative); URINE KETONES NEGATIVE (Negative); URINE LEUKOCYTES-REFLEX NEGATIVE (Negative); URINE NITRITE-REFLEX NEGATIVE (Negative); URINE PROTEIN NEGATIVE (Negative); URINE SPECIFIC GRAVITY 1.015 (1.005-1.030); URINE UROBILINOGEN 0.2 E.U./dl (0.2-1.0)
[2019-08-03 17:06] LABS: ANISOCYTOSIS 1+; MICROCYTES Occasional
[2019-08-03 17:07] LABS: POIKILOCYTOSIS 1+
[2019-08-03 18:11] VITALS: BP 141/69
[2019-08-03 18:20] VITALS: BP 111/61; BP 139/74
--- NOTE | 2019-08-03 18:30 | NUR ---
PATIENT TO UNIT VIA [facility] APPROX 1815. OX4, C/O SHORTNESS OF AIR WITH TRANSFER TO BED FROM [facility] WITH ASSIST OF 3 STAFF. ASSESSMENT COMPLETE, VS OBTAINED AND DOCUMENTED. INITIAL ADMISSION DOCUMENTATION STARTED, ADMISSION EDUCATION, ADMISSION HISTORY, VERIFICATION OF ALLERGIES AND PATIENT MEDS WITH PATIENT'S SPOUSE. SPOUSE STATES SHE CANNOT BE CERTAIN OF PARTICULAR MEDS PATIENT HAS BEEN IN [place] IN [place] BUT SHE BELIEVES THAT MEDS ARE CORRECT AND STATES THAT LEVIMIR WAS GIVEN ONLY AT NIGHT PRIOR TO GOING TO HOSPITAL LAST ADMISSION. AM DOSE OF LEVIMIR NEEDS VERIFICATION. REPORT GIVEN TO NOC RN WITH THIS INFORMATION.
[2019-08-03] MEDS ORDERED: PLAVIX 75 MG TA75 MG PO (19:10)
[2019-08-03 19:45] VITALS: BP 117/70
[2019-08-04] VITALS (8 sets, daily range): BP systolic 95–115; BP diastolic 45–65
[2019-08-04 04:34] LABS: ABSOLUTE LYMPHOCYTES 0.5 thou/uL (0.8-5.3); ABSOLUTE MONOCYTES 0.8 thou/uL (0.0-1.2); ABSOLUTE NEUTROPHILS 6.2 thou/uL (1.6-8.1); BASOPHILS 0.6 %; EOSINOPHILS 0.2 %; HEMATOCRIT 24.4 % (42.0-52.0); HEMOGLOBIN 7.9 gm/dL (14.0-18.0); MCH 28.8 pg (26.0-34.0); MCHC 32.3 g/dL (28.0-37.0); MCV 89.3 fL (80.0-100.0); MONOCYTES 10.3 %; NUCLEATED RBCS 0 /100WBC; PLATELET COUNT* 312 thou/uL (150-400); POLYS 81.9 %; RBC 2.73 mil/uL (4.50-6.00); WBC 7.6 thou/uL (4.0-11.0)
--- NOTE | 2019-08-04 05:03 | NUR ---
ASSUMED CARE OF PT AT 1900. PT IS ALERT AND ORIENTED. VSS. BOO. PT IS A Q2 TURN. PT HAS A BRAVO CATHETER. PT IS IN A FIB ON THE TELEMETRY. PT IS RESTING COMFORTABLY IN BED. RESPIRATIONS ARE EVEN AND NONLABORED. WILL CONTINUE TO MONITOR PT.
[2019-08-04 05:20] LABS: ALBUMIN 2.3 g/dL (3.4-5.0); CALCIUM 7.8 mg/dL (8.5-10.1); CREATININE 1.7 mg/dL (0.6-1.3); POTASSIUM 4.2 mmol/L (3.5-5.1); TOTAL BILIRUBIN 0.3 mg/dL (<0.1-1.0); TOTAL PROTEIN 6.3 g/dL (6.4-8.2)
--- NOTE | 2019-08-04 11:02 | EKG ---
[place] [address] ELECTROCARDIOGRAM REPORT Name: YAO LOYA Room: [address] ADM IN M.R.#: [id number] Admission: 08/03/19 Attend Phys: Dereje Alegria Discharge: Date of : 42 Report #: [id number] THIS REPORT FOR: //name// [facility] ED Test Date: 2019-08-03 Test Time: 15:51:43 Pat Name: YAO LOYA Department: Room: [facility] Gender: M Security Services Specialist: : 1940 Requested By: Aly Sandhu Order Number: [id number] MD: Gordon Tobar Measurements Intervals [place] Rate: 86 P: [place]: QRS: 109 QRSD: 111 T: 9 QT: 349 QTc: 418 Interpretive Statements Atrial fibrillation Incomplete right bundle-branch block Possible right ventricular hypertrophy Baseline wander in lead(s) V3 Compared to ECG 07/03/2019 05:14:39 Right ventricular hypertrophy now present ST (T wave) deviation no longer present Myocardial infarct finding no longer present Electronically Signed On 08-04-2019 11:02:06 FILLING HAULER WEAVING by Gordon Tobar [email or web address] <ELECTRONICALLY SIGNED> By: Gordon Tobar MD, FACC 08/04/19 1102 1551 1551 Gordon Tobar MD, FACC /EPI
--- NOTE | 2019-08-04 12:19 | NUR ---
Nutrition: Consult received for difficulty eating. Pt admitted with dyspnea. Recent PNA, LUCY. Pressure ulcer on coccyx - RD ordered Glucerna shake for added nutrition. BG 180s, alb 2.3, prealb 17.1. 2gm Na diet. Wt stable at 230#. Mild risk. Will follow up po intake, supplement, wt, labs 08/07/19.
--- NOTE | 2019-08-04 14:27 | NUR ---
WOUND CARE NOTE: CONSULT RECEIVED FOR WOUND ON COCCYX. PATIENT PRESENTS WITH A STAGE 2 PRESSURE ULCER TO THE SACRUM, ON THE RIGHT SIDE. WOUND MEASURES 1.1X1X0.2. PINK, MOIST WOUND BED. LLOYD-WOUND IS MACERATED. CLEANSED WITH WOUND CLEANSER, PATTED DRY. APPLIED OPTIFOAM AG AND SECURED WITH A TRANSPARENT DRESSING. PATIENT TOLERATED WELL. EDUCATED PATIENT ON OFFLOADING AND KEEPING OFF SITE TO ASSIST WITH HEALING. COMMUNICATED UNDERSTANDING AND ALLOWED USE OF WEDGES TO TURN TO HIS LEFT SIDE. RECOMMEND TURN Q2 HOURS-KEEP OFF WOUND HOB <30 DEGREES IF PATIENT CAN TOLERATE LIMIT LAYERS OF LINEN UNDER PATIENT
[2019-08-04 14:45] LABS: BF RBC 35206 /mm3; TOTAL CELL COUNT 332 /mm3
[2019-08-04 14:50] LABS: CLARITY CLOUDY; TOTAL VOLUME 1160 ml
[2019-08-04 15:17] LABS: SOURCE THORACENTESIS
--- NOTE | 2019-08-04 15:25 | NUR ---
MET WITH PT AND SPOKE WITH [facility]. PT HAS BEEN THERE SINCE 07/24, PLAN IS FOR HIM TO RETURN AT [place]. [facility] ASKED THAT REF BE FAXED TO HER WITH CURRENT INFO. PT STATES HE HAD BEEN DOING FAIRLY WELL THERE BUT GOTTEN SOA AND CAME BACK TO HOSPITAL. NO FAMILY IN ROOM. WILL FOLLOW AND FAX UPDATE TO [facility]
[2019-08-04 15:42] LABS: BF LYMPHOCYTES 62 %; BF MONOCYTES 7 %; BF POLYS 31 %; BF TISSUE 5 /100 WBC
--- NOTE | 2019-08-04 18:30 | NUR ---
PT AFIB ON THE MONITOR, HAS SOA, 2-4+EDEMA IN BLE WITH NEEDED DOPPLER USE FOR PEDAL PULSES. PT HAS STAGE 2 ON COCCYX (PIX IN THE CHART) WITH OPTIFOAM AG AND TRANSPARENT COVERING THE WOUND AFTER WOUND CLEANSER USED. PT IS ACHS NOT REQUIRING ANY INSULIN THIS SHIFT. PT IS TO HAVE ALL STOOLS HEMACULT SMEAR RAN, NO STOOLS THIS SHIFT. PT HAS WATCHMAN INSTEAD OF ANTICOAGULATION AND DAILY WEIGHTS ORDERED. PT WENT DOWN FOR THORACENTISIS AND HAD GREATER THAN 1100 REMOVED. HOURLY ROUNDING MAINTAINED THIS SHIFT, WILL CONTINUE TO MONITOR AND ASSESS
--- NOTE | 2019-08-04 18:38 | NUR ---
PT CALLED DURGA LOYA AND REQUESTED TO BE NOTIFIED REGARDING ANY CHANGE WITH THE PLAN OF CARE. HER NUMBER IS [phone]
[2019-08-05] VITALS (7 sets, daily range): BP systolic 99–115; BP diastolic 46–62
--- NOTE | 2019-08-05 03:46 | NUR ---
ASSUMED CARE OF PT AT 1900. PT IS ALERT AND ORIENTED. VSS. PERFATEMEH. PT IS A Q2 TURN. PT HAS +4 EDEMA IN LOWER EXTREMITIES. PT HAS A BRAVO. PT IS ON 2 LITERS O2. PT IS IN A FIB ON THE TELEMETRY. PT IS RESTING COMFORTABLY IN BED. RESPIRATIONS ARE EVEN AND NONLABORED. WILL CONTINUE TO MONITOR PT.
[2019-08-05 04:44] LABS: ABSOLUTE LYMPHOCYTES 0.5 thou/uL (0.8-5.3); ABSOLUTE NEUTROPHILS 6.3 thou/uL (1.6-8.1); BASOPHILS 0.4 %; EOSINOPHILS 0.2 %; HEMATOCRIT 24.4 % (42.0-52.0); HEMOGLOBIN 7.8 gm/dL (14.0-18.0); LYMPHOCYTES 6.6 %; MCH 28.5 pg (26.0-34.0); MCHC 31.9 g/dL (28.0-37.0); MCV 89.5 fL (80.0-100.0); MONOCYTES 12.2 %; MPV 7.8 fl. (7.2-11.1); NUCLEATED RBCS 0 /100WBC; PLATELET COUNT* 304 thou/uL (150-400); POLYS 80.6 %; RBC 2.72 mil/uL (4.50-6.00); RDW-CV 17.7 % (10.5-14.5); WBC 7.9 thou/uL (4.0-11.0)
[2019-08-05 04:57] LABS: CALCIUM 8.4 mg/dL (8.5-10.1); CREATININE 1.9 mg/dL (0.6-1.3); POTASSIUM 4.4 mmol/L (3.5-5.1)
[2019-08-05 05:12] LABS: PREALBUMIN 16.3 mg/dL (18.0-35.7)
[2019-08-05 07:34] LABS: DIRECT BILIRUBIN 0.1 mg/dL (<0.1-0.3)
[2019-08-05 11:07] LABS: BODY FLUID AMYLASE 22 U/L (()); BODY FLUID LDH 185 IU/L (()); BODY FLUID PROTEIN 2.3 g/dL (())
[2019-08-05 16:36] LABS: BF RBC 12003 /mm3; TOTAL CELL COUNT 242 /mm3
[2019-08-05 16:46] LABS: TOTAL VOLUME 1200 ml
[2019-08-05 16:47] LABS: CLARITY HAZY
[2019-08-05 17:21] LABS: BF LYMPHOCYTES 65 %; BF MONOCYTES 13 %; BF POLYS 22 %; BF TISSUE 1 /100 WBC
[2019-08-05 17:22] LABS: SOURCE PLEURAL FLUID
[2019-08-06] VITALS: BP 112/56
--- NOTE | 2019-08-06 03:36 | NUR ---
ASSUMED CARE OF PT AT 1900. PT IS ALERT AND ORIENTED. VSS. PERRLA. PT IS ON 4 LITERS O2. PT AMBULATED TO HIS CHAIR. PT IS ON 5MG/HR LASIX DRIP. FEET REMAIN EDEMTUOUS. PT IS IN AFIB ON THE TELEMETRY. PT IS RESTING COMFORTABLY IN BED. RESPIRATIONS ARE EVEN AND NONLABORED. WILL CONTINUE TO MONITOR PT.
[2019-08-06 04:00] VITALS: BP 118/62
[2019-08-06 04:56] LABS: ABSOLUTE LYMPHOCYTES 0.4 thou/uL (0.8-5.3); ABSOLUTE MONOCYTES 1.6 thou/uL (0.0-1.2); ABSOLUTE NEUTROPHILS 8.3 thou/uL (1.6-8.1); BASOPHILS 0.2 %; EOSINOPHILS 0.1 %; HEMATOCRIT 24.9 % (42.0-52.0); HEMOGLOBIN 7.8 gm/dL (14.0-18.0); LYMPHOCYTES 4.2 %; MCH 27.9 pg (26.0-34.0); MCHC 31.5 g/dL (28.0-37.0); MCV 88.8 fL (80.0-100.0); MONOCYTES 15.2 %; MPV 8.4 fl. (7.2-11.1); NUCLEATED RBCS 0 /100WBC; PLATELET COUNT* 318 thou/uL (150-400); POLYS 80.3 %; RDW-CV 17.7 % (10.5-14.5); WBC 10.3 thou/uL (4.0-11.0)
[2019-08-06 05:24] LABS: CALCIUM 8.3 mg/dL (8.5-10.1); CREATININE 1.9 mg/dL (0.6-1.3); MAGNESIUM 1.9 mg/dL (1.8-2.4); PHOSPHORUS* 3.8 mg/dL (2.5-4.9); POTASSIUM 4.3 mmol/L (3.5-5.1)
[2019-08-06 07:33] VITALS: BP 106/59
[2019-08-06 11:39] VITALS: BP 95/48
--- NOTE | 2019-08-06 12:00 | NUR ---
GAVE DR MCCARTNEY 'S NUMBER TO CONTACT RE: POC
[2019-08-06 14:08] LABS: BODY FLUID AMYLASE 20 U/L (()); BODY FLUID LDH 160 IU/L (()); BODY FLUID PROTEIN 2.2 g/dL (())
[2019-08-06 16:07] VITALS: BP 92/58
[2019-08-06 17:06] LABS: BODY FLUID PH 7.4 (Not Estab.)
[2019-08-06 17:06] LABS: BODY FLUID PH 7.5 (Not Estab.)
[2019-08-06 18:19] LABS: SOURCE THORACENTESIS
[2019-08-06 18:20] LABS: SOURCE THORACENTESIS
[2019-08-06 20:00] VITALS: BP 86/52
[2019-08-07] VITALS (8 sets, daily range): BP systolic 85–112; BP diastolic 44–60
--- NOTE | 2019-08-07 05:54 | NUR ---
ASSUMED PATIENT CARE AT 1900. ASSESSMENT COMPLETED CHARTED. VSS. PATIENT IS AFIB ON THE MONITOR. HOURLY ROUNDING IN PLACE FOR PATIENT SAFETY. CLWR.
--- NOTE | 2019-08-07 07:25 | NUR ---
CHANGE OF SHIFT, BEDSIDE REPORT GIVEN PATIENT SEEN AT BEDSIDE, IN BED ASLEEP ASSUMED PATIENT CARE
[2019-08-07 09:03] LABS: CALCIUM 8.5 mg/dL (8.5-10.1); CREATININE 2.1 mg/dL (0.6-1.3); POTASSIUM 3.9 mmol/L (3.5-5.1)
--- NOTE | 2019-08-07 09:05 | CON ---
[address] [address] CONSULTATION Name: SHALINIYAO W Room: [address] IN M.R.#: [id number] Admission: 08/03/19 Attend Phys: Dereje Alegria Discharge: Date of : 42 Report #: [id number] THIS REPORT FOR: //name// CC: Dereje Lares DATE OF SERVICE: 08/05/2019 NEPHROLOGY CONSULTING CONSULTING PHYSICIAN: Dr. Kimble. REASON FOR NEPHROLOGY CONSULTATION: Acute kidney injury on chronic kidney disease. REASON FOR ADMISSION: Shortness of breath. HISTORY OF PRESENT ILLNESS: This is a 79-year-old male, he does have a past medical history of chronic kidney disease stage 3, creatinine used to run 1.5-1.6, but lately creatinine has been running 1.7-2, chronic diastolic congestive heart failure, ejection fraction 60-65% in June of this year, persistent pleural effusions. He was recently discharged from [facility] after a prolonged hospitalization because of pleural effusions, pneumonia, he needed bilateral thoracentesis, sepsis and UTI, has a chronic Parikh now, was sent over from his outside facility because of shortness of breath. His chest x-ray looks congested. He had bilateral pleural effusions, he underwent left-sided thoracentesis yesterday with 1 liter of fluid removal and he is going for right-sided thoracentesis today. He also has evidence of right-sided pneumonia and he is being treated for that. He was given Lasix ____ mg twice a day that started on admission. He diuresed well, but his creatinine went up from 1.8 on admission to 1.9 today and hence his Lasix has been changed to once a day and Nephrology has been consulted to help with his kidney function and help with diuresis. His blood pressure has been running a little low today, 99/50 this morning. He is currently tachypneic, resting. He feels better from when he came in. ALLERGIES: CONTRAST DYE, METOPROLOL AND SOTALOL. REVIEW OF SYSTEMS: As mentioned in history of present illness, otherwise 10-point review of systems are negative. HOME MEDICATIONS: Include cholecalciferol, aspirin 81 mg a day, Plavix, meclizine, potassium chloride 20 mEq as directed, Dulcolax, diltiazem, docusate, tamsulosin, Lantus, MiraLax, milk of magnesia, Sienajuliane Donnell, he was on Lasix 40 mg once a day, budesonide, insulin lispro, esomeprazole [place] [address] CONSULTATION Name: YAO LOYA Room: [address] IN [facility].#: [id number] Admission: 08/03/19 Attend Phys: Dereje Alegria Discharge: Date of : 42 Report #: [id number] PAST MEDICAL AND SURGICAL HISTORY: Includes benign prostatic hypertrophy, chronic urinary retention, has a Parkih catheter now. Follow up with Urology in the last admission, sepsis, chronic diastolic congestive heart failure, chronic kidney disease stage 3, baseline creatinine 1.7-2 now, diabetes type 2 and atrial fibrillation, anemia, chronic diastolic congestive heart failure, bilateral pleural effusions. FAMILY HISTORY: Reviewed and noncontributory. SOCIAL HISTORY: He does not smoke or drink alcohol or use illicit drugs. He was living in a facility before coming here. PHYSICAL EXAMINATION: VITAL SIGNS: Blood pressure is 99/50, pulse ox was on 2 liters of nasal cannula 96%, pulse rate was 93, temperature 36.3, respiratory rate is 18. GENERAL: He is awake, alert, oriented x 3. HEAD AND EYES: Atraumatic, normocephalic and normal conjunctivae. EARS, NOSE, AND THROAT: Mucous membranes are moist. NECK: There is JVD till the angle of his mandible. CHEST: Bilaterally diminished breath sounds anteriorly. CARDIOVASCULAR: S1, S2 normal. No murmurs. ABDOMEN: Soft, nondistended. Bowel sounds are present. LOWER EXTREMITIES: There is 3+ lower extremity edema. NEUROLOGICAL FUNCTION: Gross neurological function is intact. PSYCHIATRIC: Mood and affect seem to be normal. LABORATORY DATA: Hemoglobin 7.8. Sodium 145, creatinine 1.9. Potassium 4.4. Other labs are reviewed. IMAGING: Chest CT, chest x-ray, thoracentesis, ultrasound reports were reviewed. ASSESSMENT: 1. Chronic kidney disease stage 3. His baseline creatinine is probably around 1.7-2 now and chronic kidney disease ____ diabetes and frequent episodes of acute kidney injury during his congestive heart failure exacerbation and his creatinine is at baseline 1.9, 1.8 on admission. His urinalysis on admission was normal. There is no need for renal imaging right now. 2. Chronic diastolic congestive heart failure with exacerbation, the patient does look fluid overloaded on examination. 3. Bilateral pleural effusions and evidence of right-sided pneumonia, defer to primary team for management, status post left thoracentesis. 4. History of diabetes type 2. 5. History of hypertension. Blood pressure is running low today. 6. History of chronic atrial fibrillation. 7. Chronic anemia. [address] [place] [address] CONSULTATION Name: YAO LOYA Room: [address] IN M.R.#: [id number] Admission: 08/03/19 Attend Phys: Dereje diallo los Frontenac Discharge: Date of : 42 Report #: [id number] 8. History of esophageal stricture with stent. 9. History of urinary retention, has a Parikh catheter. PLAN: 1. Clinically, he does look fluid overloaded, try not to drop his blood pressure too much. Try to keep his mean arterial pressure on 65 to 70, strict I's and O's, 2 g sodium diet. 2. We will change his Lasix to Lasix drip at 5 mg an hour. 3. We will continue to follow closely with you. Thank you for this consultation. Discussed with the patient and the patient's nurse. <ELECTRONICALLY SIGNED> By: Florence Mahmood MD 08/07/19 0905 [id number] Mahmood MD /nt
--- NOTE | 2019-08-07 09:07 | NUR ---
Nutrition: reassessment. Pt on lasix. Wt stable, 225#. Alb 2.3, prealb 16.3. Glucerna shake is ordered BID. Continue oral supplement. Mild risk.
--- NOTE | 2019-08-07 11:43 | NUR ---
CONTINUE TO FOLLOW, DISCUSSED WITH DR MCCARTNEY, ANTICIPATE CONTINUED DIURESIS AND POSSIBLE DC BACK TO FACILITY ON SATURDAY. UPDATED PT AND , IN AGREEMENT CALLED AND FAXED UPDATE TO [facility]. THEY WILL ACCEPT PT BACK, THEY DO NOT TAKE ADMITS ON THE WEEKEND. WILL F/U ON SATURDAY
[2019-08-08] VITALS (9 sets, daily range): BP systolic 82–103; BP diastolic 42–56
[2019-08-08 05:05] LABS: ABSOLUTE LYMPHOCYTES 0.3 thou/uL (0.8-5.3); ABSOLUTE MONOCYTES 1.6 thou/uL (0.0-1.2); ABSOLUTE NEUTROPHILS 11.6 thou/uL (1.6-8.1); BASOPHILS 0.1 %; EOSINOPHILS 0.1 %; HEMATOCRIT 22.9 % (42.0-52.0); HEMOGLOBIN 7.3 gm/dL (14.0-18.0); LYMPHOCYTES 2.5 %; MCHC 31.9 g/dL (28.0-37.0); MCV 87.6 fL (80.0-100.0); MONOCYTES 11.6 %; MPV 8.3 fl. (7.2-11.1); NUCLEATED RBCS 0 /100WBC; PLATELET COUNT* 288 thou/uL (150-400); POLYS 85.7 %; RBC 2.62 mil/uL (4.50-6.00); RDW-CV 17.5 % (10.5-14.5); WBC 13.6 thou/uL (4.0-11.0)
[2019-08-08 05:07] LABS: CALCIUM 8.2 mg/dL (8.5-10.1); CREATININE 1.9 mg/dL (0.6-1.3); POTASSIUM 3.8 mmol/L (3.5-5.1)
--- NOTE | 2019-08-08 06:50 | NUR ---
ASSUMED PATIENT CARE AT 1900. ASSESSMENT COMPLETED CHARTED. VSS. PATIENT IS AFIB ON THE MONITOR. HOURLY ROUNDING IN PLACE FOR PATIENT SAFETY. CLWR.
--- NOTE | 2019-08-08 09:15 | NUR ---
ASSUMED CARE AFTER REPORT APPROX 0730. OX4, ABLE TO EXPRESS NEEDS TO STAFF. ASSESSMENT COMPLETE, DOCUMENTED. VS OBTAINED, O2 SATS 96%. 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 CALL LIGHT IN REACH.
--- NOTE | 2019-08-08 16:05 | NUR ---
PAGED NEPHROLOGY TO REPORT ABNORMALLY LOW BP VIA DYNAMAP DOCUMENTED. PHYSICIAN ASKED FOR MANUAL BP AND GAVE PERIMETERS FOR CONTINUATION OF LASIX GTTS. CONTINUE LASIX GTTS IF SYSTOLIC IS >90 AND MAP IS GREATER THAN 65.
[2019-08-09] VITALS (7 sets, daily range): BP systolic 103–115; BP diastolic 51–81
[2019-08-09 05:01] LABS: HEMATOCRIT 20.7 % (42.0-52.0); MCH 28.2 pg (26.0-34.0); MCV 88.1 fL (80.0-100.0); MPV 8.5 fl. (7.2-11.1); NUCLEATED RBCS 0 /100WBC; PLATELET COUNT* 243 thou/uL (150-400); RBC 2.34 mil/uL (4.50-6.00); RDW-CV 17.8 % (10.5-14.5); WBC 12.2 thou/uL (4.0-11.0)
[2019-08-09 05:05] LABS: CALCIUM 8.5 mg/dL (8.5-10.1); CREATININE 2.2 mg/dL (0.6-1.3); POTASSIUM 3.6 mmol/L (3.5-5.1)
[2019-08-09 06:17] LABS: HEMOGLOBIN 6.6 gm/dL (14.0-18.0)
[2019-08-09 06:45] LABS: ABSOLUTE LYMPHOCYTES 0.2 thou/uL (0.8-5.3); ABSOLUTE MONOCYTES 0.9 thou/uL (0.0-1.2); ABSOLUTE NEUTROPHILS 11.1 thou/uL (1.6-8.1); MYELOCYTES 1 %
[2019-08-09 06:50] LABS: HYPOCHROMASIA 3+; MICROCYTES 1+; PLATELET ESTIMATE ADEQUATE
[2019-08-09 06:51] LABS: TOXIC GRANULATION 1+
--- NOTE | 2019-08-09 08:14 | NUR ---
ASSUMED PATIENT CARE 1900. ASSESSMENT COMPLETED CHARTED. VSS. PATIENT IS AFIB ON THE MONITOR. PATIENT VOICED THAT HE DID NOT FEEL WELL, BS CHECKED AT 0310, WAS 50. SNACK PROVIDED. BS RECHECKED AT 0345, WAS 100. PRN PAIN MEDICATION ADMINISTERED, SEE EMAR FOR DOCUMENTATION. RECEIVED CRITICAL HGB LAB AT 0615, DOCTOR BIB NOTIFIED. CALL BACK RECEIVED AT 0635, NEW ORDERS RECEIVED. PATIENT CONTINUES ON LASIX DRIP. HOURLY ROUNDING IN PLACE FOR PATIENT SAFETY. CLWR.
--- NOTE | 2019-08-09 10:00 | NUR ---
ASSUMED CARE AFTER REPORT APPROX 0730. OX4, ABLE TO EXPRESS NEEDS TO STAFF. PATIENT WITH FLAT AFFECT. ASSESSMENT COMPLETED, VS OBTAINED. CONTINUOUS OXYGEN MONITOR IN PLACE BY RT FOR BLOOD TRANSFUSION. UNIT OF PRBC INFUSING NOW ORDERED. PATIENT TOLERATING WELL. CALL LIGHT IN REACH WHILE SITTING IN RECLINER WITH LEGS ELEVATED. CALL LIGHT IN REACH. HOURLY ROUNDING FOR SAFETY AND PATIENT NEEDS.
[2019-08-09 13:54] LABS: HEMATOCRIT 23.9 % (42.0-52.0); HEMOGLOBIN 7.8 gm/dL (14.0-18.0)
[2019-08-10] VITALS: BP 96/45
[2019-08-10 04:00] VITALS: BP 114/59
--- NOTE | 2019-08-10 05:13 | NUR ---
ASSUMED PATIENT CARE AT 1900. ASSESSMENT COMPLETED CHARTED. VSS. PATIENT IS AFIB ON THE MONITOR. RT REPORTED O2 INCREASED FROM 2.5L TO 4L. BILATERAL CRACKLES IN LUNG BASES AUSCULTATED. NO RESPIRATORY DISTRESS OBSERVED. HOURLY ROUNDING IN PLACE FOR PATIENT SAFETY. CLWR.
[2019-08-10 05:22] LABS: ABSOLUTE LYMPHOCYTES 0.4 thou/uL (0.8-5.3); ABSOLUTE MONOCYTES 1.5 thou/uL (0.0-1.2); ABSOLUTE NEUTROPHILS 10.7 thou/uL (1.6-8.1); BASOPHILS 0.2 %; CALCIUM 8.4 mg/dL (8.5-10.1); CREATININE 2.4 mg/dL (0.6-1.3); EOSINOPHILS 0.1 %; HEMATOCRIT 23.7 % (42.0-52.0); HEMOGLOBIN 7.7 gm/dL (14.0-18.0); LYMPHOCYTES 3.2 %; MCH 28.5 pg (26.0-34.0); MCHC 32.3 g/dL (28.0-37.0); MCV 88.2 fL (80.0-100.0); MONOCYTES 11.7 %; MPV 8.6 fl. (7.2-11.1); NUCLEATED RBCS 0 /100WBC; PLATELET COUNT* 249 thou/uL (150-400); POLYS 84.8 %; POTASSIUM 3.8 mmol/L (3.5-5.1); RBC 2.69 mil/uL (4.50-6.00); RDW-CV 17.4 % (10.5-14.5); WBC 12.6 thou/uL (4.0-11.0)
[2019-08-10 08:00] VITALS: BP 105/63
--- NOTE | 2019-08-10 10:06 | PATH ---
[address] [address] PATHOLOGY RPT PROCEDURE Name: YAO LOYA Room: [address] IN [facility]#: [id number] Admission: 08/03/19 Date of : 42 Discharge: Report #: [id number] Path Case #: [id number] Note [facility] Accession Number: [id number] TESTS RESULT FLAG UNITS REF RANGE LAB Clinician Provided Cytology Information No. of containers..01 Other (Miscellaneous) Source: RT PLEURAL FLUID DIAGNOSIS: RT PLEURAL FLUID NEGATIVE FOR MALIGNANT CELLS. MESOTHELIAL CELLS ARE PRESENT. THIS INTERPRETATION INCLUDES EVALUATION OF A CELL BLOCK. Signed out by: 02 Colt Retana MD, Pathologist NPI- [id number] Performed by: 01 Anh Milan, Hotel Valet Attendant ([facility]) Gross description: 01 35 ML, ORANGE, CLOUDY /LCS 09/22/1840 0000 Local FLAG LEGEND: L-Low Normal,H-High Normal,LL-Alert Low,HH-Alert High <-Panic Low,>-Panic High,A-Abnormal,AA-Critical Abnormal Performed at: [address] [place] [address] Michael Parnell MD, [address] [place] [address] [address] [place] [address] Miky Barboza MD, Specimen Comment: A courtesy copy of this report has been sent to [phone], [phone] Specimen Comment: [id number] Specimen Comment: [id number] Specimen Comment: Report sent to DR MAHONEY Performed at: [address], [place], [place] [id number] MD Michael Parnell MD Phone: [phone]
--- NOTE | 2019-08-10 11:35 | NUR ---
assumed pt care report received from nurse pt is aox3 forgetful . on 4 l nc. o2 saturation is 92%. pt out of bed to chair will nurses help. no complaint. accucheck. occult blood positive lab result. gi consulted. awaiting for gi input. plavix has been stopped.. strict i&O. bp soft. will continiue to monitor
[2019-08-10 12:02] VITALS: BP 102/52
--- NOTE | 2019-08-10 13:32 | NUR ---
CONTINUE TO FOLLOW, HAS GI CONSULT TODAY. UPDATED [facility]. THEY ARE STILL ABLE TO ACCE[place]
[2019-08-10 16:03] VITALS: BP 115/65
--- NOTE | 2019-08-10 18:45 | NUR ---
gi doctor has not seen pt yet. no bowel movement reported for this shift. pt out of chair to bed with assist x3 . pt is very weak. swollen legs. onetine dose of lasix given this shift in the pm as ordered. 725 cc of urine recorded through felton. wound care performed. pt now in bed. scds on. call light at reach
[2019-08-10 20:30] VITALS: BP 133/64
[2019-08-11] VITALS (7 sets, daily range): BP systolic 76–144; BP diastolic 55–75
[2019-08-11 04:53] LABS: ABSOLUTE LYMPHOCYTES 0.4 thou/uL (0.8-5.3); ABSOLUTE MONOCYTES 1.5 thou/uL (0.0-1.2); ABSOLUTE NEUTROPHILS 10.2 thou/uL (1.6-8.1); BASOPHILS 0.1 %; EOSINOPHILS 0.1 %; HEMATOCRIT 24.4 % (42.0-52.0); HEMOGLOBIN 7.8 gm/dL (14.0-18.0); LYMPHOCYTES 3.2 %; MCH 28.5 pg (26.0-34.0); MONOCYTES 12.7 %; MPV 8.6 fl. (7.2-11.1); NUCLEATED RBCS 0 /100WBC; PLATELET COUNT* 225 thou/uL (150-400); POLYS 83.9 %; RBC 2.74 mil/uL (4.50-6.00); RDW-CV 17.5 % (10.5-14.5); WBC 12.2 thou/uL (4.0-11.0)
[2019-08-11 05:10] LABS: ALBUMIN 2.5 g/dL (3.4-5.0); CALCIUM 8.5 mg/dL (8.5-10.1); CREATININE 2.3 mg/dL (0.6-1.3); POTASSIUM 3.7 mmol/L (3.5-5.1); TOTAL BILIRUBIN 0.5 mg/dL (<0.1-1.0); TOTAL PROTEIN 6.2 g/dL (6.4-8.2)
--- NOTE | 2019-08-11 06:57 | NUR ---
PT SLEPT MOST OF SHIFT. ASSESSMENT DOCUMENTED. MEDS GIVEN PER E-NOV. NO REPORTS OF PAIN. BRAVO DRAINING DEPENDANTLY. WILL CONTINUE WITH PLAN OF CARE.
--- NOTE | 2019-08-11 11:42 | NUR ---
CONTINUE TO FOLLOW, MET WITH PT AND AFTER SEEN BY DR PITTS, VOICED CONCERN THAT PT MAY NEED DIALYSIS IN FUTURE. AWAITING RENAL TO SEE. PT AND TO DISCUSS FURTHER, ALSO DISCUSSED PALLIATIVE VS HOSPICE WTIH THEM. SON IS DPOA AND STARTED NEW JOB TODAY AND NOT AVAILABLE. ASKING ABOUT FACIILTY IN [place] TO WHERE THEY LIVE/KITTY AND WHO THEIR DR IS. WILL INQUIRE. AT THIS TIME PLAN IS TO RETURN TO [facility]. WILL FOLLOW
--- NOTE | 2019-08-11 12:46 | NUR ---
assumed pt care report received from nurse. pt is aox4 , on 4 l nc. up to chair wiith 2 assist. afib on child monitor. poor appetite. felton patent. strict i&o in place. fall precaution in place. call light at reach. will continue to monitior
--- NOTE | 2019-08-11 14:02 | NUR ---
pt bp dropped in the 70s. this nurse rechecked bp at 1402, bp 114/62
--- NOTE | 2019-08-11 15:15 | CON ---
[address] [address] CONSULTATION Name: YAO LOYA Ivan Room: [address] IN .R.#: [id number] Admission: 08/03/19 Attend Phys: Dereje Alegria Discharge: Date of : 41 Report #: [id number] THIS REPORT FOR: //name// CC: Dereje Lares DATE OF SERVICE: 08/10/2019 HISTORY OF PRESENT ILLNESS: This is a pleasant 79-year-old gentleman with past medical history significant for chronic kidney disease, CHF, coronary artery disease, diabetes mellitus, esophageal stricture, who presented to the hospital for evaluation of shortness of breath. The GI service has been consulted for evaluation of anemia and positive FOBT. The patient denies any overt symptoms of GI bleeding such as hematemesis, coffee-ground emesis, melena or hematochezia. His weight has remained all stable. The patient was treated for radiation-induced esophageal stricture by our practice and has had several esophageal dilations performed. He denies any dysphagia to solids or liquids at this time. PAST MEDICAL HISTORY: Hypertension, hyperlipidemia, coronary artery disease, CHF, atrial fibrillation, diabetes and CKD. PAST SURGICAL HISTORY: The patient recently had a Watchman procedure performed. SOCIAL HISTORY: The patient quit smoking in the past. Denies alcohol or recreational drug use. FAMILY HISTORY: Negative for colon cancer or Alvarado related neoplasia. PHYSICAL EXAMINATION: GENERAL: The patient is alert, awake, oriented x 3. VITAL SIGNS: Temperature 36.8, pulse rate 104, respirations 16, blood pressure 105/64. The patient is alert, awake, oriented x 3. HEENT: Pupils are equal, round, reactive to light and accommodation. Mucous membranes are moist. There is no congestion. LUNGS: Clear to auscultation bilaterally. CARDIOVASCULAR: Rate and rhythm regular, S1, S2 present. ABDOMEN: Soft. There is no distention, guarding or rigidity. EXTREMITIES: Warm, well perfused. There is no edema. SKIN: Warm and dry. LABORATORY DATA: Hemoglobin 7.7, hematocrit 23.7, platelet count 249, WBC count 12.6, MCV 88.2. Sodium 141, potassium 3.8, chloride 101, bicarbonate 30, BUN 61, creatinine 2.4. Serum iron 31, percent saturation 14, TIBC 222, [place]ritin 177[place] [address] CONSULTATION Name: YAO LOYA Room: [address]#: [id number] Admission: 08/03/19 Attend Phys: Dereje Alegria Discharge: Date of : 41 Report #: [id number] ASSESSMENT AND PLAN: Pleasant 79-year-old gentleman with history as outlined above, presenting with shortness of breath and anemia. GI service was consulted for positive FOBT and anemia. The patient's last colonoscopy was performed 4 years back and this was unremarkable without any history of polyps. The patient currently does not have any signs of overt gastrointestinal bleeding. His iron indices indicate presence of anemia of chronic disease rather than iron deficiency due to his extensive comorbidities. I would recommend holding off of any colonoscopy or endoscopic evaluation at this time. Continue treatment for anemia of chronic disease. Thank you for this consultation. <ELECTRONICALLY SIGNED> By: Ernesto Simpson MD 08/11/19 1515 [id number] Simpson MD /nt
[2019-08-12] VITALS: BP 100/57
[2019-08-12 04:31] LABS: HEMATOCRIT 24.4 % (42.0-52.0); MCH 29.4 pg (26.0-34.0); MCHC 32.8 g/dL (28.0-37.0); MCV 89.6 fL (80.0-100.0); MPV 8.4 fl. (7.2-11.1); NUCLEATED RBCS 0 /100WBC; PLATELET COUNT* 223 thou/uL (150-400); RBC 2.72 mil/uL (4.50-6.00); RDW-CV 17.6 % (10.5-14.5); WBC 10.9 thou/uL (4.0-11.0)
[2019-08-12 04:59] LABS: PREALBUMIN 12.3 mg/dL (18.0-35.7)
[2019-08-12 05:02] LABS: ALBUMIN 2.3 g/dL (3.4-5.0); CALCIUM 8.3 mg/dL (8.5-10.1); CREATININE 2.1 mg/dL (0.6-1.3); POTASSIUM 3.6 mmol/L (3.5-5.1); TOTAL BILIRUBIN 0.4 mg/dL (<0.1-1.0); TOTAL PROTEIN 6.3 g/dL (6.4-8.2)
[2019-08-12 05:53] VITALS: BP 115/57
[2019-08-12 05:53] LABS: ABSOLUTE LYMPHOCYTES 0.5 thou/uL (0.8-5.3); ABSOLUTE MONOCYTES 1.6 thou/uL (0.0-1.2); ABSOLUTE NEUTROPHILS 8.7 thou/uL (1.6-8.1); ANISOCYTOSIS 1+; PLATELET ESTIMATE ADEQUATE; POIKILOCYTOSIS 1+
--- NOTE | 2019-08-12 06:14 | NUR ---
PT SLEPT MOST OF SHIFT. ASSESSMENT DOCUMENTED. MEDS GIVEN PER E-NOV. IV PATENT. TYLENOL GIVEN FOR BACK PAIN THIS SHIFT. PT REPOSITIONED THROUGH NIGHT. BRAVO IN PLACE. WILL CONTINUE WITH PLAN OF CARE.
[2019-08-12 08:00] VITALS: BP 84/54
--- NOTE | 2019-08-12 09:58 | NUR ---
RECEIVED CALL FROM [facility] ASKING FOR UPDATE, FAXED TO HER
--- NOTE | 2019-08-12 11:40 | NUR ---
Cardiac Rehab. Attempted to educate regarding heart failure but no family at bedside.
[2019-08-12 12:01] VITALS: BP 104/56
[2019-08-12 16:10] VITALS: BP 115/62
--- NOTE | 2019-08-12 19:01 | NUR ---
ASSUMED PT CARE AT 0730. ASSESSMENT COMPLETED CHARTED. ABLE TO MAKE NEEDS KNOWN. RESTING IN RECLINER MOST OF THE DAY. UP WITH MAX ASSIST TO BSC AND RECLINER AND BED. C/O BACK PAIN AND GAVE PRN PAIN MEDICATION PER EMAR. CALL LIGHT WITHIN REACH. GOOD URINE OUTPUT. WILL CONTINUE TO MONITOR.
[2019-08-12 20:00] VITALS: BP 98/53
[2019-08-13] VITALS: BP 109/49
[2019-08-13 03:59] LABS: ABSOLUTE LYMPHOCYTES 0.5 thou/uL (0.8-5.3); ABSOLUTE MONOCYTES 1.5 thou/uL (0.0-1.2); ABSOLUTE NEUTROPHILS 8.5 thou/uL (1.6-8.1); BASOPHILS 0.1 %; EOSINOPHILS 0.2 %; HEMATOCRIT 24.2 % (42.0-52.0); HEMOGLOBIN 7.9 gm/dL (14.0-18.0); LYMPHOCYTES 4.9 %; MCH 29.1 pg (26.0-34.0); MCHC 32.7 g/dL (28.0-37.0); MONOCYTES 14.2 %; NUCLEATED RBCS 0 /100WBC; PLATELET COUNT* 206 thou/uL (150-400); POLYS 80.6 %; RBC 2.72 mil/uL (4.50-6.00); RDW-CV 18.5 % (10.5-14.5); WBC 10.5 thou/uL (4.0-11.0)
[2019-08-13 04:00] VITALS: BP 112/59
[2019-08-13 04:15] LABS: CALCIUM 8.4 mg/dL (8.5-10.1); CREATININE 1.9 mg/dL (0.6-1.3); POTASSIUM 3.3 mmol/L (3.5-5.1)
--- NOTE | 2019-08-13 05:47 | NUR ---
ASSUMED PATIENT CARE AT 1900. ASSESSMENT COMPLETED CHARTED. VSS. PATIENT IS AFIB ON THE MONITOR. HOURLY ROUNDING IN PLACE FOR PATIENT SAFETY. CLWR.
--- NOTE | 2019-08-13 07:04 | NUR ---
I HAVE REVIEWED THE CHARTING OF PATRICK KEANE. I CONCUR WITH HIS DOCUMENTATION.
[2019-08-13 08:00] VITALS: BP 104/49
--- NOTE | 2019-08-13 09:36 | NUR ---
ASSUMED PT CARE REPORT RECEIVED FROM NURSE. PT IS AOX4, ON 3 L NC. O2 SATURATION 96%. VSS. LASIX GIVEN. PT IN CHAIR POSITION WITH LEGS ELEVATED. BRAVO PATENT. K REPLACEMENT GIVEN PER PROTOCOL SEE EMAR. TRACING AFIB ON SHIPPING PROCESSOR. ACCUCHECK 104. NO INSULIN GIVEN PER NURSE JUDGEMENT. PT IS NOW EATING HIS BREAKFAST. NO COMPLAINT. WILL CONTINUE TO MONITOR
[2019-08-13] MEDS ORDERED: ASPIR 8181 M1 PO (10:09)
[2019-08-13] MEDS ORDERED: KLOR-CON M2020 MEQ PO (10:23)
[2019-08-13] MEDS ORDERED: LASIX 80 MG TAB80 MG PO (10:25)
[2019-08-13] MEDS ORDERED: ULTRAM 50MG TAB50 MG PO (10:41)
[2019-08-13] MEDS ORDERED: KIDS VITAMIN400 UNIT PO (10:45)
--- NOTE | 2019-08-13 11:25 | NUR ---
margareth contacted [facility] to inform of pt's d/c today. yolanda w/shlomo who asked for pt 300pm d/c time. shlomo stated Angelica would f/u w/some questions re: pt. margareth contacted [facility] and scheduled transportation for 3p, requested O2 and w/c. yolanda w/Chuck. pt , Laisha informed of d/c time. Margarita asked margareth to enusre pt's cell phone, razor and chargers for both be packed up and sent to [facility] w/pt. margareth notified pt nurse, Yolanda of Margarita's request. cm faxed orders, h&P, facesheet, med list to [facility].
[2019-08-13 11:54] VITALS: BP 104/52
--- NOTE | 2019-08-13 11:55 | NUR ---
RECEIVED CALL FROM [facility]. ANSWERED QUESTIONS. SHE VOICED THEY HAD CONCERNS ABOUT PT RETURNING TODAY. ASKED THAT CM SPEAK WITH PT/FAMILY RE: SNF TIME AND IF HE DOESN'T PROGRESS MAY NEED TO DISCUSS LTC. ASKED THAT SNF HAVE THAT CONVERSATION WITH THEM ALSO BUT OFFERED TO DISCUSS IT WITH SON/DPOA. CALL TO [facility], UPDATES RE: POC AND SNF GIVEN WELL CONVERSATION ABOUT POSSIBLE LTC AND NEED FOR HOSPICE IN FUTURE APPROPRIATE. HE HAS BEEN TALKING WITH DR SHREE MCKENNA AND UNDERSTANDS POC. AWAIT CALL BACK FROM [facility] RE: ACCEPTANCE TO SNF TODAY
--- NOTE | 2019-08-13 12:52 | NUR ---
WOUND NURSE: PATIENT SEEN TO ADDRESS DETERIORATING LESION ON THE RIGHT SACRUM. PRESENTS NOW UNSTAGEABLE PRESSURE INJURY 2ND TO DARK PURPLE INDURATED TISSUE WITH SHALLOW FULL THICKNESS TISSUE LOSS AT THE SUPERIOR EDGE OF THE LESION AND MEASURING 1.0 X 3.0 X 0.2 CM. THERE IS A SMALL AMOUNT OF ACTIVE SEROUS DRAINAGE NOTED FROM THE WOUND. CLEANSED WITH WOUND CLEANSER AND GAUZE. APPLIED AQUACEL AG UNDER BORDERED FOAM DRESSING, AND PATIENT REPOSITIONED ONTO HIS RIGHT SIDE. PATIENT INSTRUCTED REPOSITION SIDE TO SIDE Q2H WHEN IN BED, AND NO SITTING >1 HR; AND OFFLOADING CUSHION TO BE USED WHEN UP IN CHAIR. THIS WAS ALSO RELAYED TO STAFF NURSE, YANICK, CARING FOR PATIENT.
[2019-08-13] MEDS ORDERED: EPOGEN2000 UNIT/ SUBQ (13:36)
--- NOTE | 2019-08-13 15:00 | NUR ---
ASSUMED PT CARE REPORT RECEIVED FROM NURSE.PT IS AOX4 FORGETFUL ON 3 L NC O2 SAT 96%. VSS. NO COMPLAINT. ACCUCHECK. JAYA HOSE IN PLACE ORDERED. BRAVO PATENT. ORDER TO KEEP BRAVO IN FOR DISCHARGE. DISCHARGE ORDERED. MEDICAL SUPERVISOR AT 1530. IV LINE OUT. HEART MONITOR RETRIEVED. WILL CONTINUE TO MONITOR PT
--- NOTE | 2019-08-13 15:15 | NUR ---
PT LEFT FLOOR AT 1515 ACCOMPANIED BY TRANSPORTER ON WHEELCHAIR.
--- NOTE | 2019-08-13 16:57 | NUR ---
report given to nurse Gooden from [facility]
--- NOTE | 2019-08-26 12:06 | PATH ---
[address] [address] PATHOLOGY RPT PROCEDURE Name: YAO LOYA Room: [address]#: [id number] Admission: 08/03/19 Date of : 42 Discharge: 08/13/19 Report #: [id number] Path Case #: [id number] Note [facility] Accession Number: [id number] TESTS RESULT FLAG UNITS REF RANGE LAB Clinician Provided Cytology Information No. of containers..01 Other (Miscellaneous) Source: LT PLEURAL FLUID DIAGNOSIS: LT PLEURAL FLUID NEGATIVE FOR MALIGNANT CELLS. FEW MESOTHELIAL CELLS AND INFLAMMATORY CELLS ARE PRESENT. Signed out by: Miky Barboza MD, Pathologist NPI- [id number] Performed by: Mj Cabrera, Driller And Broacher ([facility]) Gross description: 01 75 ML, BYRON, CLOUDY /LCS 09/22/1840 0000 Local FLAG LEGEND: L-Low Normal,H-High Normal,LL-Alert Low,HH-Alert High <-Panic Low,>-Panic High,A-Abnormal,AA-Critical Abnormal Performed at: [address] [place] [address] Michael Parnell MD, [address] [place] [address] [address] [place] [address] Miky Barboza MD, Specimen Comment: [id number] Specimen Comment: A duplicate report has been generated due to demographic updates. Performed at: [address] [place] [address] [address], [place], [place] [id number] MD Michael Parnell MD Phone: [phone]
== END 2019-08-13 15:15 | DRG 177 ==
LOC: M.ERS 15:44 → M.TBA-ER 17:07 → M.2W 17:07
PROVIDERS: Emergency Medicine; Internal Medicine; Internal Medicine Hematology & Oncology; Registered Nurse; ADMIT Family Medicine
PROC: 0W9B3ZZ Drainage of Left Pleural Cavity, Percutaneous Approach (ICD-10-PCS; principal; 2019-08-04)
PROC: 0W993ZZ Drainage of Right Pleural Cavity, Percutaneous Approach (ICD-10-PCS; 2019-08-05)
PROC: 30233N1 Transfusion of Nonautologous Red Blood Cells into Peripheral Vein, Percutaneous Approach (ICD-10-PCS; 2019-08-09)
DX: J69.0 Pneumonitis due to inhalation of food and vomit (principal); I50.33 Acute on chronic diastolic (congestive) heart failure; J96.21 Acute and chronic respiratory failure with hypoxia; I48.20 Chronic atrial fibrillation, unspecified; D68.59 Other primary thrombophilia; J91.8 Pleural effusion in other conditions classified elsewhere; N17.9 Acute kidney failure, unspecified; I13.0 Hypertensive heart and chronic kidney disease with heart failure and stage 1 through stage 4 chronic kidney disease, or unspecified chronic kidney disease; N18.3 Chronic kidney disease, stage 3 (moderate); E11.22 Type 2 diabetes mellitus with diabetic chronic kidney disease; I25.10 Atherosclerotic heart disease of native coronary artery without angina pectoris; N40.1 Benign prostatic hyperplasia with lower urinary tract symptoms; R33.8 Other retention of urine; E88.09 Other disorders of plasma-protein metabolism, not elsewhere classified; R13.10 Dysphagia, unspecified; D50.9 Iron deficiency anemia, unspecified; Z99.81 Dependence on supplemental oxygen; Z79.82 Long term (current) use of aspirin; Z88.8 Allergy status to other drugs, medicaments and biological substances; Z91.041 Radiographic dye allergy status; Z79.899 Other long term (current) drug therapy; Z90.3 Acquired absence of stomach [part of]

== ENCOUNTER → 2019-11-13 | Outpatient (CLI) | payer MEDICARE, BC ==
[~2019-11-13] MED LIST changes: +ASPIR 8181 M1 PO; +EPOGEN2000 UNIT/ SUBQ; +KIDS VITAMIN400 UNIT PO; +PLAVIX 75 MG TA75 MG PO
== END ==
LOC: M.WC 08:43
DX: E11.622 Type 2 diabetes mellitus with other skin ulcer (principal); L89.313 Pressure ulcer of right buttock, stage 3; L98.492 Non-pressure chronic ulcer of skin of other sites with fat layer exposed; E11.42 Type 2 diabetes mellitus with diabetic polyneuropathy; E11.65 Type 2 diabetes mellitus with hyperglycemia; I11.0 Hypertensive heart disease with heart failure; I25.10 Atherosclerotic heart disease of native coronary artery without angina pectoris; I50.22 Chronic systolic (congestive) heart failure; I48.20 Chronic atrial fibrillation, unspecified; F32.9 Major depressive disorder, single episode, unspecified; K21.9 Gastro-esophageal reflux disease without esophagitis; Z98.49 Cataract extraction status, unspecified eye; Z79.82 Long term (current) use of aspirin

== ENCOUNTER → 2019-12-04 | Outpatient (CLI) | payer MEDICARE, BC | LOC: M.WC 01:59 | DX: E11.622 Type 2 diabetes mellitus with other skin ulcer (principal); L89.313 Pressure ulcer of right buttock, stage 3; L98.412 Non-pressure chronic ulcer of buttock with fat layer exposed; E11.42 Type 2 diabetes mellitus with diabetic polyneuropathy; E11.65 Type 2 diabetes mellitus with hyperglycemia; I11.0 Hypertensive heart disease with heart failure; I50.22 Chronic systolic (congestive) heart failure; I25.10 Atherosclerotic heart disease of native coronary artery without angina pectoris; I48.20 Chronic atrial fibrillation, unspecified; K21.9 Gastro-esophageal reflux disease without esophagitis; F32.9 Major depressive disorder, single episode, unspecified ==

== ENCOUNTER 2020-01-28 12:09 | Emergency (ER) | payer MEDICARE, BC ==
[~2020-01-28] VITALS: Ht 188 cm; Wt 81.7 kg
--- NOTE | ~2020-01-28 | CON ---
[address] [address] CONSULTATION Name: YAO LOYA Room: [facility]#: [id number] Admission: 01/28/20 Attend Phys: Discharge: 01/28/20 Date of : 42 Report #: [id number] THIS REPORT FOR: //name// cc: Michael Almaraz Russell J. DO ~ THIS REPORT FOR: //name// CC: Sia Almaraz DATE OF SERVICE: 01/28/2020 HISTORY OF PRESENT ILLNESS: This is a pleasant 79-year-old gentleman with past medical history significant for CHF, coronary artery disease, chronic kidney disease, diabetes mellitus, atrial fibrillation who presented to the hospital with food bolus. The patient has history of radiation-induced esophageal stricture and had stent placed last year. The patient could not tolerate the stent and therefore, the stent was taken out immediately. The patient reports having food stuck in his chest since last night. PAST MEDICAL HISTORY: Hypertension, hyperlipidemia, coronary artery disease, CHF, atrial fibrillation, diabetes and CKD. PAST SURGICAL HISTORY: The patient had a Watchman procedure performed. SOCIAL HISTORY: The patient quit smoking in the past. Denies alcohol or recreational drug use. FAMILY HISTORY: Negative for colon cancer or Alvarado related neoplasia. PHYSICAL EXAMINATION: VITAL SIGNS: Temperature 36.9, pulse rate 87, respirations 22, blood pressure 105/60, pulse ox 98% on room air. GENERAL: The patient is alert, awake, oriented x 3. HEENT: Pupils equal, round, reactive to light and accommodation. Mucous membranes are moist. There is no congestion. LUNGS: Clear to auscultation bilaterally. CARDIOVASCULAR: Rate and rhythm regular, S1, S2 present. ABDOMEN: Soft. There is no distention, guarding or rigidity. EXTREMITIES: Warm, well perfused. There is no edema. SKIN: Warm and dry. LABORATORY DATA: Hemoglobin 12.0, hematocrit 34.9, platelet count 209, WBC count 12.5. Sodium 141, potassium 4.1, chloride 104, bicarbonate 28, BUN 57, creatinine 1.9. Chest x-ray, [place] [address] CONSULTATION Name: YAO LOYA Room: [facility]#: [id number] Admission: 01/28/20 Attend Phys: Discharge: 01/28/20 Date of : 42 Report #: [id number] ASSESSMENT AND PLAN: Pleasant 79-year-old gentleman with history outlined above, presenting with food bolus. We will proceed with EGD and make further recommendations based on results of EGD. Thank you for this consultation. By: [id number] Simpson MD /nt
--- NOTE | ~2020-01-28 | PROC ---
[address] [address] PROCEDURE REPORT Name: YAO LOYA Room: [facility]#: [id number] Admission: 01/28/20 Attend Phys: Discharge: 01/28/20 Date of : 42 Report #: [id number] THIS REPORT FOR: //name// cc: Michael Almaraz Russell J. DO ~ THIS REPORT FOR: //name// For GI report, please see the Provation report in Perceptive 7 content. By: [id number] Records Staff CARRIE /NAZ
[2020-01-28] MEDS ORDERED: LEVEMIR FL100 UNIT/2 SUBQ (12:31)
[2020-01-28] MEDS ORDERED: FUROSEMIDE 40 M40 MG PO (12:32)
[2020-01-28] MEDS ORDERED: PROSCAR 5MG TABL5 M1 PO (12:32)
[2020-01-28 12:56] LABS: ABSOLUTE BASOPHILS 0.1 thou/uL (0.0-0.2); ABSOLUTE LYMPHOCYTES 0.9 thou/uL (0.8-5.3); ABSOLUTE MONOCYTES 1.2 thou/uL (0.0-1.2); ABSOLUTE NEUTROPHILS 10.3 thou/uL (1.6-8.1); BASOPHILS 0.5 %; EOSINOPHILS 0.2 %; HEMATOCRIT 34.9 % (42.0-52.0); LYMPHOCYTES 7.4 %; MCH 31.2 pg (26.0-34.0); MCHC 34.3 g/dL (28.0-37.0); MCV 90.8 fL (80.0-100.0); MONOCYTES 9.4 %; MPV 8.3 fl. (7.2-11.1); NUCLEATED RBCS 0 /100WBC; PLATELET COUNT* 249 thou/uL (150-400); POLYS 82.5 %; RBC 3.84 mil/uL (4.50-6.00); RDW-CV 13.6 % (10.5-14.5); WBC 12.5 thou/uL (4.0-11.0)
[2020-01-28 13:05] LABS: CALCIUM 9.1 mg/dL (8.5-10.1); CREATININE 1.9 mg/dL (0.6-1.3); POTASSIUM 4.1 mmol/L (3.5-5.1)
[2020-01-28 13:06] LABS: APTT 28.4 Seconds (25.0-31.3); INR 1.1; PROTIME 11.1 Seconds (9.20-11.50)
[2020-01-28 13:10] LABS: ALBUMIN 2.8 g/dL (3.4-5.0); TOTAL BILIRUBIN 0.5 mg/dL (<0.1-1.0); TOTAL PROTEIN 7.9 g/dL (6.4-8.2)
[2020-01-28 14:39] VITALS: BP 105/60
== END 2020-01-28 14:40 | disposition still patient (30) ==
LOC: M.GI 12:09 → M.ERS 12:09 → M.GI 14:40
PROVIDERS: Nurse Practitioner Family
DX: T18.128A Food in esophagus causing other injury, initial encounter (principal); R11.2 Nausea with vomiting, unspecified; I48.91 Unspecified atrial fibrillation; I50.9 Heart failure, unspecified; E11.9 Type 2 diabetes mellitus without complications; Z86.2 Personal history of diseases of the blood and blood-forming organs and certain disorders involving the immune mechanism; Z91.041 Radiographic dye allergy status; Z88.8 Allergy status to other drugs, medicaments and biological substances; X58.XXXA Exposure to other specified factors, initial encounter; Y93.89 Activity, other specified; Y92.89 Other specified places as the place of occurrence of the external cause; Y99.8 Other external cause status

== ENCOUNTER → 2020-07-08 | Day surgery (SDC) | payer MEDICARE, BC ==
[~2020-07-08] MED LIST changes: +FUROSEMIDE 40 M40 MG PO; +LEVEMIR FL100 UNIT/2 SUBQ; +PROSCAR 5MG TABL5 M1 PO
--- NOTE | ~2020-07-08 | PROC ---
[address] [address] PROCEDURE REPORT Name: SHALINIYAO W Room: [facility]#: [id number] Admission: 07/08/20 Attend Phys: Ernesto Simpson MD Discharge: Date of : 42 Report #: [id number] THIS REPORT FOR: //name// cc: Michael Almaraz Russell J. DO ~ THIS REPORT FOR: //name// For GI report, please see the Provation report in Perceptive 7 content. By: 0658Medical Records Staff DANNY /NAZ
== END | disposition home or self-care (01) ==
LOC: M.SUR 08:36
PROVIDERS: ATTEND Internal Medicine Gastroenterology
DX: K22.2 Esophageal obstruction (principal); M19.90 Unspecified osteoarthritis, unspecified site; E11.9 Type 2 diabetes mellitus without complications; Z88.8 Allergy status to other drugs, medicaments and biological substances; I48.92 Unspecified atrial flutter; I11.0 Hypertensive heart disease with heart failure; I50.9 Heart failure, unspecified; Z79.899 Other long term (current) drug therapy; Z79.84 Long term (current) use of oral hypoglycemic drugs; Z79.82 Long term (current) use of aspirin; Z87.440 Personal history of urinary (tract) infections; Z98.890 Other specified postprocedural states; Z82.61 Family history of arthritis; Z82.49 Family history of ischemic heart disease and other diseases of the circulatory system; Z83.3 Family history of diabetes mellitus

== ENCOUNTER → 2020-07-08 | Outpatient (CLI) | payer MEDICARE, BC ==
[2020-07-08 09:23] LABS: ABSOLUTE BASOPHILS 0.1 thou/uL (0.0-0.2); ABSOLUTE LYMPHOCYTES 1.3 thou/uL (0.8-5.3); ABSOLUTE MONOCYTES 0.8 thou/uL (0.0-1.2); ABSOLUTE NEUTROPHILS 6.8 thou/uL (1.6-8.1); BASOPHILS 0.6 %; EOSINOPHILS 0.5 %; HEMATOCRIT 37.4 % (42.0-52.0); HEMOGLOBIN 12.8 gm/dL (14.0-18.0); LYMPHOCYTES 14.4 %; MCH 32.2 pg (26.0-34.0); MCHC 34.2 g/dL (28.0-37.0); MCV 94.3 fL (80.0-100.0); MONOCYTES 9.2 %; NUCLEATED RBCS 0 /100WBC; PLATELET COUNT* 201 thou/uL (150-400); POLYS 75.3 %; RBC 3.97 mil/uL (4.50-6.00); RDW-CV 13.7 % (10.5-14.5); WBC 9.1 thou/uL (4.0-11.0)
[2020-07-08 09:35] LABS: ALBUMIN 3.4 g/dL (3.4-5.0); CALCIUM 8.9 mg/dL (8.5-10.1); CREATININE 2.3 mg/dL (0.6-1.3); POTASSIUM 4.6 mmol/L (3.5-5.1); TOTAL BILIRUBIN 0.5 mg/dL (<0.1-1.0); TOTAL PROTEIN 8.4 g/dL (6.4-8.2)
[2020-07-08 09:50] LABS: % SATURATION 24 % (20-39); IRON 69 ug/dL (50-175)
== END ==
LOC: M.LAB 08:52
PROVIDERS: ATTEND Internal Medicine Hematology & Oncology
DX: D72.829 Elevated white blood cell count, unspecified (principal); D50.0 Iron deficiency anemia secondary to blood loss (chronic); D75.9 Disease of blood and blood-forming organs, unspecified; Z85.72 Personal history of non-Hodgkin lymphomas

== ENCOUNTER → 2021-01-20 | Outpatient (CLI) | payer MEDICARE, BC ==
[2021-01-20 14:41] LABS: ALBUMIN 3.2 g/dL (3.4-5.0); CALCIUM 8.7 mg/dL (8.5-10.1); CREATININE 2.3 mg/dL (0.6-1.3); POTASSIUM 5.1 mmol/L (3.5-5.1); TOTAL BILIRUBIN 0.4 mg/dL (<0.1-1.0); TOTAL PROTEIN 7.9 g/dL (6.4-8.2)
== END ==
LOC: M.LAB 13:53
PROVIDERS: ATTEND Registered Nurse
DX: I48.92 Unspecified atrial flutter (principal); I50.32 Chronic diastolic (congestive) heart failure